=== PATIENT | male | born 1950 | race Caucasian/White ===

== ENCOUNTER → 2018-10-12 | Outpatient (CLI) | payer MEDICARE ==
[2018-10-12 14:09] LABS: Blood Urea Nitrogen 15 mg/dL (9-20)
--- NOTE | 2018-10-12 14:46 | CT ---
EXAMINATION TYPE: CT soft tissue neck w con DATE OF EXAM: 10/12/2018 COMPARISON: None HISTORY: Tongue swelling and mass CT DLP: 426 mGycm CONTRAST: CT scan of the neck is performed with IV Contrast, patient injected with 100 mL of Isovue 300. Contrast enhanced CT of the neck was performed from the skull base through the lung apices. AIRWAY: There is a large mass at the base of the tongue on the left measuring 5.2 x 4.2 x 4.9 cm. The re is distortion of the airway with narrowing on the left and displacement towards the right. Mass ex tends adjacent to to the anterior aspect left internal carotid artery as well as adjacent several lef t external carotid arterial branches. Several adjacent small lymph nodes are noted measuring less li n 6 mm each. These findings felt to reflect malignancy until proven otherwise. No additional mass is identified. SALIVARY GLANDS: The submandibular and parotid glands are free of mass or inflammatory process. THYROID GLAND: No nodules or masses seen. LYMPH NODES: No adenopathy seen greater than 1cm. LUNG APICES: No nodule or mass is seen. OTHER: Vascular structures are patent. No significant degenerative change of the cervical spine. N o abscess seen. IMPRESSION: 1. Large mass at the base of tongue on the left as discussed above with distortion of the airway from left to right. Several small adjacent lymph nodes noted. Visualization and tissue diagnosis is advised.
== END ==
LOC: RADCTMAIN 13:35
PROVIDERS: ATTEND Otolaryngology
DX: D37.02 Neoplasm of uncertain behavior of tongue (principal)
CPT/HCPCS: 82565; 84520; 70491; Q9967

== ENCOUNTER → 2018-10-13 | Outpatient (CLI) | payer MEDICARE ==
--- NOTE | 2018-10-13 10:12 | US ---
EXAMINATION TYPE: US duplex aorta DATE OF EXAM: 10/13/2018 COMPARISON: NONE CLINICAL HISTORY: R10.84 Generalized abdominal pain. 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
== END | disposition home or self-care (01) ==
LOC: RADUSWWP 09:30
PROVIDERS: ATTEND Internal Medicine
DX: R10.84 Generalized abdominal pain (principal); Z88.0 Allergy status to penicillin; Z88.5 Allergy status to narcotic agent; Z88.1 Allergy status to other antibiotic agents
CPT/HCPCS: 93979

== ENCOUNTER → 2018-10-24 | Outpatient (CLI) | payer MEDICARE ==
--- NOTE | 2018-10-24 19:27 | PE ---
EXAMINATION TYPE: PET CT fusion skull to thigh DATE OF EXAM: 10/24/2018 COMPARISON: Neck CT October 12, 2018. Chest CT January 30, 2016. HISTORY: Head and neck cancer initial staging study. TECHNIQUE: Following the intravenous administration of 14.026 mCi of F-18 FDG, whole body images are performed from the skull base to the midthigh. Images are reviewed on the computer in the coronal, axial, and sagittal planes. Reconstructed rotating images are created on independent workstation and reviewed on the computer. A noncontrast CT is performed in conjunction with the PET scan. Dedicate d PET/CT imaging of the neck is also performed. SCAN: Initial Scan FINDINGS: SKULL BASE AND NECK: There is a large left oropharyngeal mass measuring approximately 3.5 x 3.3 cm a xial image 45 involving left tongue base, craniocaudal dimension is roughly 5 to 6 cm filling the lef t parapharyngeal fat space superiorly, there is local mass effect with airway deviation to right of m idline, there is indistinct margins or fat plane from adjacent submandibular gland, inferior extent i s to submandibular level just at beginning of hyoid bone, max SUV is 19.1. There is suspicious subcentimeter right submandibular lymph node anterior to right internal jugular v ein axial image 52, max SUV is 4.88. There is suspicious subcentimeter left anterior lymph node near level of hyoid bone axial images 59 t hrough 61, max SUV is 5.09 at this level. There is 1.3 cm hypermetabolic left nasal lesion axial image 28, max SUV is 9.58. There is mild hypermetabolic uptake right lateral mandibular level images 44 through 42 with max SUV of 6.02, this is near cavitary filling, dental cavity or infection is suspected. Correlate clinically . CHEST, MEDIASTINUM, AND HILAR REGION: There is background fairly moderate underlying emphysematous ch [place]. In the posterior inferior aspect left upper lobe there is some mild hypermetabolic uptake at le cee of reticulation and groundglass opacity, max SUV is 3.21, infectious process is suspected. Additi onal areas of groundglass opacity and reticulation superior aspect left lower lobe axial image 131 ar e noted with minimal hypermetabolic uptake, max SUV is less than 2.5 at this level. Additional areas of involvement in the left lower lobe axial image 151 are present. No convincing evidence of suspicio us hypermetabolic uptake to suggest metastatic disease pneumothorax is noted. ABDOMEN AND PELVIS: No suspicious hypermetabolic uptake is present. OSSEOUS STRUCTURES: No suspicious hypermetabolic uptake is seen. OTHER CT: There is moderate to severe calcified plaque at bilateral carotid bulb level, cannot exclud e significant stenosis. Consider carotid ultrasound follow-up. Pectus excavatum deformity is seen. There is moderate to severe 3 vessel coronary artery calcificatio n which is noted risk factor for underlying coronary artery disease, correlate clinically. Ascending aorta measures up to 3.8 cm diameter axial image 122. Incidental a metabolic 1.3 cm skin lesion left lower anterior chest wall axial image 148 favors dermatologic etiology. Colonic interposition is noted. Mild generalized fat replaced atrophy of pancreas is seen. There is m oderate atherotic change of aorta measuring up to 2.8 cm in diameter transversely axial image 202. IMPRESSION: Large left oropharyngeal mass or neoplasm with suspicious bilateral subcentimeter lymph n odes. No convincing evidence of metastatic malignancy. Suspect multifocal left-sided pneumonia or inf ectious process, correlate clinically. Note is made of suspicious left nasal bridge hypermetabolic so ft tissue lesion, advise direct visualization to assess. Possible right mandibular dental cavity, cor relate clinically.
== END | disposition home or self-care (01) ==
LOC: RADPETMAIN 15:59
PROVIDERS: ATTEND Otolaryngology
DX: C01 Malignant neoplasm of base of tongue (principal)
CPT/HCPCS: 78815; A9552

== ENCOUNTER 2019-01-17 05:04 | Emergency (ER) | payer MEDICARE ==
[2019-01-17 05:22] VITALS: RESP 16; TEMP 96.8
--- NOTE | 2019-01-17 05:32 | ED ---
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 Patient reports that because of this he has been on a liquid diet for a number of weeks. Patient states that over the past 2 weeks he hasn't been able to have a normal bowel movement, initially he thought it was because he was on liquid diet, however over the past few days he's been feeling as though he needs to have a bowel movement and can't. He describes it as feeling as though there is a ball of stool stuck in only liquid stool coming around. Patient is taking Dulcolax daily for a number of days and has tried multiple fleets enemas without success. - Related Data Home Medications Medication Instructions Recorded Confirmed Fluconazole [Diflucan] 100 mg PO DAILY 01/17/19 01/17/19 Levothyroxine Sodium [Synthroid] 75 mcg PO DAILY 01/17/19 01/17/19 Previous Rx's Medication Instructions Recorded Polyethylene Glycol 3350 [Miralax] 17 gm PO DAILY #527 gm 01/17/19 Allergies Allergy/AdvReac Type Severity Reaction Status Date / Time codeine Allergy Unknown Verified 01/17/19 05:21 Penicillins Allergy Unknown Verified 01/17/19 05:21 Review of Systems ROS Statement: Those systems with pertinent positive or pertinent negative responses have been documented in the HPI. ROS Other: All systems not noted in ROS Statement are negative. Past Medical History Past Medical History: Hypertension Additional Past Medical History / Comment(s): Throat cancer History of Any Multi-Drug Resistant Organisms: None Reported Past Surgical History: Orthopedic Surgery Past Psychological History: No Psychological Hx Reported Smoking Status: Current every day smoker Past Alcohol Use History: None Reported Past Drug Use History: None Reported General Exam - General Exam Comments Initial Comments: Physical Exam GENERAL: Chronically ill appearing gentleman, appears older than stated age HENT: Temporal wasting EYES: PERRL, EOMI PULMONARY: Unlabored respirations. CARDIOVASCULAR: Bradycardic, regular ABDOMEN: Soft and nontender with normal bowel sounds. SKIN: Skin is clear with no lesions or rashes and otherwise unremarkable. Dry : Deferred NEUROLOGIC: Patient is alert and oriented x3. Moving all extremities spontaneously Speech slurred due to tongue swelling secondary to radiation MUSCULOSKELETAL: Normal extremities with adequate strength and full range of motion. No lower extremity swelling or edema. No calf tenderness. PSYCHIATRIC: Normal psychiatric evaluation Course Vital Signs 01/17/19 05:12 Temperature 96.8 F L Pulse Rate 86 Respiratory 16 Rate Blood Pressure 108/79 O2 Sat by Pulse 97 Oximetry - Reevaluation(s) Reevaluation #1: 01/17/19 06:35 patient was digitally disimpacted and soap suds enema was administered Disposition Clinical Impression: Fecal impaction in rectum Disposition: HOME SELF-CARE Condition: Stable Instructions (If sedation given, give patient instructions): Polyethylene Glycol 3350 (By mouth) Prescriptions: Polyethylene Glycol 3350 [Miralax] 17 gm PO DAILY #527 gm Is patient prescribed a controlled substance at d/c from ED?: No Referrals: Peter Armando MD [Primary Care Provider] - 1-2 days
--- NOTE | 2019-01-17 06:14 | XR ---
EXAM: XR Abdomen, 1 View CLINICAL HISTORY: ITS.REASON XR Reason: Pain TECHNIQUE: Frontal supine view of the abdomen/pelvis. COMPARISON: No relevant prior studies available. FINDINGS: Gastrointestinal tract: Unremarkable. No dilation. Bones/joints: No acute fracture. No dislocation. IMPRESSION: No acute findings.
[2019-01-17 07:17] VITALS: BP 146/82; PULSE 84
== END 2019-01-17 07:16 | disposition home or self-care (01) ==
LOC: EC 05:04
DX: K56.41 Fecal impaction (principal); C14.0 Malignant neoplasm of pharynx, unspecified; F17.200 Nicotine dependence, unspecified, uncomplicated; Z79.890 Hormone replacement therapy; Z88.0 Allergy status to penicillin; Z88.5 Allergy status to narcotic agent
CPT/HCPCS: 74018; 99284

== ENCOUNTER → 2019-04-24 | Outpatient (CLI) | payer MEDICARE ==
--- NOTE | 2019-04-25 19:03 | PE ---
Nuclear medicine PET/CT HISTORY: Head and neck cancer, subsequent Patient received 9.4 mCi F-18 FDG intravenously in delayed scanning was performed from the skull base to the mid thighs. Small veuns-ci-pofp imaging obtained through the head and neck. Correlation to prior nuclear medicine PET/CT 10/24/2018 Head and neck: There is marked diminution in the previous identified hypermetabolic uptake associated with the abnormal soft tissue seen on previous exam within the oropharynx. The abnormal soft tissue is poorly defined at this level but appears decreased in size compared to prior exam. Some mild uptak e along the tongue region may be physiologic or due to posttreatment change. Nasal uptake to the left of midline is again noted. No definite adenopathy although lack of contrast could compromise sensiti vity. Atheromatous calcifications present within the carotid arteries. Chest shows emphysematous changes and there is some increased abnormal increased attenuation present at the left lung base which is more confluent and dense than on previous exam but without hypermetabo lic uptake, some minimal bilateral dependent atelectatic changes are present, there are coronary loretta ry calcifications. Ascending aorta is borderline aneurysmal. No pleural or pericardial effusion. No m ediastinal, axillary, or hilar adenopathy. No supraclavicular adenopathy evident. Abdomen pelvis: No evident liver mass or retroperitoneal adenopathy. Adrenal glands are unremarkable. Atheromatous changes are present within the aorta. No ascites. No suspicious hypermetabolic uptake. Prostate calcifications are present. Osseous structures are stable, no suspicious hypermetabolic uptake. IMPRESSION: Positive treatment response as described.
== END | disposition home or self-care (01) ==
LOC: RADPETMAIN 08:40
PROVIDERS: ATTEND Internal Medicine Hematology & Oncology
DX: I67.2 Cerebral atherosclerosis (principal); I65.29 Occlusion and stenosis of unspecified carotid artery; J43.9 Emphysema, unspecified; I71.2 Thoracic aortic aneurysm, without rupture; C10.0 Malignant neoplasm of vallecula
CPT/HCPCS: 78815; A9552

== ENCOUNTER → 2019-07-14 | Outpatient (CLI) | payer MEDICARE ==
[2019-07-14 09:18] LABS: African American GFR (CKD) >90 (>60 ml/min/1.73 sqM); Blood Urea Nitrogen 15 mg/dL (9-20); Non-African American GFR(CKD) 89 (>60 ml/min/1.73 sqM)
--- NOTE | 2019-07-14 10:28 | CT ---
EXAMINATION TYPE: CT neck chest w con DATE OF EXAM: 07/14/2019 COMPARISON: 10/12/[address] fusion 04/24/2019 HISTORY: oropharynx CA CT DLP: 641.9 mGycm CONTRAST: CT scan of the neck is performed with IV Contrast, patient injected with 100 mL of Isovue 300. Contrast enhanced CT of the neck was performed from the skull base through the lung apices. AIRWAY: Large mass previously noted at the base of the tongue is significantly smaller in size with r esidual soft tissue prominence measuring 2.0 x 1.4 cm versus 5.2 x 4.2 x 4.9 cm previously. Previousl y noted displaced airway from left to right is now centralized. SALIVARY GLANDS: The submandibular and parotid glands are free of mass or inflammatory process. THYROID GLAND: No nodules or masses seen. LYMPH NODES: No adenopathy seen greater than 1cm. LUNG APICES: No nodule or mass is seen. OTHER: Vascular structures are patent. No significant degenerative change of the cervical spine. N o abscess seen. IMPRESSION: Significant diminution in size in left oropharyngeal mass. EXAMINATION TYPE: CT neck chest w con DATE OF EXAM: 07/14/2019 COMPARISON: PET/CT dated 04/24/2019 HISTORY: oropharynx CA CT DLP: 641.9 mGycm Automated exposure control for dose reduction was used. CONTRAST: CT scan of the chest is performed with IV Contrast, patient injected with 100 mL of Isovue 300. FINDINGS: LUNGS: Moderate emphysematous changes identified. New areas of reticulonodular infiltrate left upper lobe, left lower lobe and right lower lobe may reflect areas of developing inflammatory process. [place] static disease considered less likely. Appropriate follow-up advised. MEDIASTINUM: There are no greater than 1 cm hilar or mediastinal lymph nodes. No pericardial effusi on is seen. Thoracic aorta is of normal caliber. The heart is not enlarged. UPPER ABDOMEN: No significant abnormality appreciated. OTHER: No additional significant abnormality is seen. IMPRESSION: New areas of reticulonodular infiltrate left upper lobe, left lower lobe and right lower lobe may ref lect areas of developing inflammatory process. Metastatic disease considered less likely. Appropriate follow-up advised.
== END | disposition home or self-care (01) ==
LOC: RADCTMAIN 08:39
PROVIDERS: ATTEND Internal Medicine Hematology & Oncology
DX: C10.0 Malignant neoplasm of vallecula (principal); R91.8 Other nonspecific abnormal finding of lung field; Z88.0 Allergy status to penicillin; Z88.5 Allergy status to narcotic agent
CPT/HCPCS: 82565; 84520; 70491; 71260; 36415; Q9967

== ENCOUNTER → 2019-10-21 | Outpatient (CLI) | payer MEDICARE ==
[2019-10-21 14:57] LABS: African American GFR (CKD) >90 (>60 ml/min/1.73 sqM); Blood Urea Nitrogen 30 mg/dL (9-20); Non-African American GFR(CKD) >90 (>60 ml/min/1.73 sqM)
--- NOTE | 2019-10-22 09:38 | CT ---
EXAMINATION TYPE: CT neck chest w con DATE OF EXAM: 10/21/2019 3:31 PM COMPARISON: 07/14/2019 CT neck and chest and PET/CT dated 04/24/2019 HISTORY: Follow up for malignant neoplasm oropharynx. CT DLP: 656.7 mGycm Automated exposure control for dose reduction was used. CONTRAST: CT scan of the chest and neck is performed following with IV Contrast, patient injected with 100ml mL of Isovue 300. Axial images are obtained, coronal and sagittal reformatted images are reviewed. FINDINGS: Airway: There is some soft tissue prominence at the left lateral posterior tongue base with the only abnormal area of enhancement measuring approximate 7 mm as opposed to the prior measurements of 2.0 x 1.4 cm. There is also bulbous contour of the posterior oropharynx at the level of the uvula on the l eft that could be posttreatment change. This could be further evaluated with direct visualization. Tr ue and false focal cords appear unremarkable. Piriform sinuses are maintained. Subglottic airway is u nremarkable. Parotid/submandibular glands: Symmetric atrophy. No mass seen or surrounding inflammatory process. Carotid/Vascular Structures: There is a conventional three-vessel branch pattern of the aortic arch. Common carotid arteries are patent. Carotid bulbs bilaterally demonstrated approximately 50% stenosis . Less than 50% stenosis is seen in the proximal internal carotid arteries just after their origin. O n the left approximately 50% stenosis of the internal carotid artery is seen focally over a distance of 6 mm such as on axial series 4 image 55. The remaining cervical portions of the internal carotid a rteries are patent and unremarkable. The vertebral arteries are also patent. Osseous Structures: Mild multilevel degenerative changes of the spine. Lungs: Moderate background emphysematous changes of the lungs. Worsening reticular opacities at the r ight lung base that could be on the basis of fibrosis, infectious etiology, or inflammatory etiology. Neoplastic etiology is considered less likely however there is a more nodular density in the right l ower lobe on series 6 image 66 measuring 5 mm. This appears new from the prior. Few tree-in-bud opaci ties are seen in the left lower lobe such as on image 52. Lingular opacities are also new and progres elena in the left lower lobe of tree-in-bud opacities. Mediastinum: Moderate to severe coronary artery calcifications. No suspicious mediastinal adenopathy. 8 mm short axis lymph node in the precarinal space and 18 mm short axis lymph node in the subcarinal space. Heart is nonenlarged. No pericardial effusion. Upper abdomen: 9 mm fluid attenuated right renal cyst is seen. IMPRESSION: 1. Progressing and new reticular nodular and tree-in-bud opacities multifocally within the lingula a nd lower lobes most likely representing infectious or inflammatory etiology. Given the tree-in-bud ap pearance atypical infection such as tuberculosis or mycobacterium avium intracellular could be consid ered. However there is a new spiculated right basilar density therefore metastasis again remains a co nsideration. PET/CT could be considered for further evaluation. 2. Enhancement and soft tissue fullness at the left tongue base representing the known and treated or opharyngeal carcinoma is much less conspicuous than on the prior exams an abnormal area of enhancemen t measures now only 7 mm. Fullness is also seen in the posterior oropharynx on the left at the level of the uvula. Direct visualization recommended.
== END | disposition home or self-care (01) ==
LOC: RADCTMAIN 13:46
PROVIDERS: ATTEND Internal Medicine Hematology & Oncology
DX: C10.9 Malignant neoplasm of oropharynx, unspecified (principal); R91.8 Other nonspecific abnormal finding of lung field; Z88.0 Allergy status to penicillin; Z88.5 Allergy status to narcotic agent
CPT/HCPCS: 82565; 84520; 70491; 71260; 36415; Q9967

== ENCOUNTER → 2020-02-14 | Outpatient (CLI) | payer MEDICARE ==
[2020-02-14 15:29] LABS: African American GFR (CKD) >90 (>60 ml/min/1.73 sqM); Blood Urea Nitrogen 14 mg/dL (9-20); Non-African American GFR(CKD) >90 (>60 ml/min/1.73 sqM)
--- NOTE | 2020-02-14 16:54 | CT ---
EXAMINATION TYPE: CT neck chest w con DATE OF EXAM: 02/14/2020 3:52 PM COMPARISON: CT exam 10/21/2019 HISTORY: f/u throat ca CT DLP: 605.9 mGycm Automated exposure control for dose reduction was used. CONTRAST: CT scan of the neck is performed following with IV Contrast, patient injected with 100 mL of Isovue 3 00. Axial images are obtained, coronal and sagittal reformatted images are reviewed. FINDINGS: There is lack of fat along the neck, increased attenuation which is likely related to postt reatment change Airway: No gross abnormality seen. The posterior tongue shows no abnormal enhancement, there is a sim ilar appearance to prior exam. Extensive emphysematous changes are present within the lungs. The appe arance of the posterior lung bases shows a similar tree-in-bud pattern however there is been interval development of a irregular area soft tissue measuring approximately 5.6 x 5.5 x 3.3 cm which extends to the pleural surface the posterior costophrenic angle. Parotid/submandibular glands: No gross abnormality seen. Carotid/Vascular Structures: No change Osseous Structures: Multilevel facet arthropathy, degenerative disc change again noted. Other: Coronary artery calcifications are again seen.0 IMPRESSION: Abnormal density in the right lung base could be related to pneumonia, inflammatory [place], correlate, follow-up recommended to exclude mass. No evident recurrence in the head and neck.
== END | disposition home or self-care (01) ==
LOC: RADCTMAIN 14:25
PROVIDERS: ATTEND Internal Medicine Hematology & Oncology
DX: J98.4 Other disorders of lung (principal); C10.0 Malignant neoplasm of vallecula; Z88.0 Allergy status to penicillin; Z88.5 Allergy status to narcotic agent
CPT/HCPCS: 82565; 84520; 70491; 71260; 36415; Q9967

== ENCOUNTER → 2020-03-18 | Outpatient (CLI) | payer MEDICARE ==
--- NOTE | 2020-03-21 06:24 | PE ---
EXAMINATION TYPE: PET CT fusion skull to thigh DATE OF EXAM: 03/18/2020 COMPARISON: Prior PET CTs April 24, 2019 and October 24, 2018. Most recent CT neck and chest February [id number] and older studies. HISTORY: History of throat cancer diagnosed October 2018 treated with chemotherapy and radiation treatm ent ended February 2019. TECHNIQUE: Following the intravenous administration of 9.31 mCi of F-18 FDG, whole body images are p erformed from the skull base to the midthigh. Images are reviewed on the computer in the coronal, ax ial, and sagittal planes. Reconstructed rotating images are created on independent workstation and r eviewed on the computer. A noncontrast CT is performed in conjunction with the PET scan. Dedicated PET CT of the head and neck also performed. SCAN: Subsequent Scan FINDINGS: SKULL BASE AND NECK: Continued marked improvement in the abnormal enlarged enhancing tissue left tongue base versus prior CTs and PET CTs but there is some new hypermetabolic uptake felt present axi al images 45 through 48 at level of prior neoplasm likely reflecting some active neoplastic recurrenc e, max SUV is 6.4 at this level superiorly. No definitive new suspicious hypermetabolic right submandibular neck adenopathy on current study. Per sistent hypermetabolic 1.2 cm anterior left nasal focus axial image 24 with Max SUV 5.09 current stud y. There is now new soft tissue swelling and moderate subcutaneous edema below the mandible extending to the hyoid bone where there is new hypermetabolic uptake believed to be corresponding to muscle infla mmation and/or infection, former is favored. Correlate clinically. Some additional symmetric lower ce rvical muscular uptake is noted. CHEST, MEDIASTINUM, AND HILAR REGION: Back moderate underlying emphysematous change is redemonstrated . No new areas of suspicious hypermetabolic uptake. Right basilar atelectasis and/or consolidation no jt is ametabolic. ABDOMEN AND PELVIS: No new areas of suspicious hypermetabolic uptake. OSSEOUS STRUCTURES: No new areas of suspicious hypermetabolic uptake. OTHER CT: Inferiorly severe calcified plaque at bilateral carotid bulb level, cannot exclude signific ant stenosis is redemonstrated. Pectus excavatum deformity is redemonstrated. There is moderate to severe 3 vessel coronary artery ca lcification which is noted risk factor for underlying coronary artery disease redemonstrated. Ascendi ng aorta measures up to 3.8 cm diameter axial image 124. Incidental ametabolic 1.3 cm skin lesion lef t lower anterior chest wall axial image 146 favored benign is more hyperdense from prior studies. Patient has very little internal and external fat. There is moderate atherosclerotic change of aorta with some ectasia measuring up to 2.8 cm in diameter. No definitive greater than 3.0 cm aneurysm. Mil [id number]-az-[id number] diffuse soft tissue anasarca is now present. 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 Stable anterior left na soraya suspicious uptake. No new active or recurrent metastatic disease identified.
== END | disposition home or self-care (01) ==
LOC: RADPETMAIN 09:55
PROVIDERS: ATTEND Internal Medicine Hematology & Oncology
DX: C10.0 Malignant neoplasm of vallecula (principal)
CPT/HCPCS: 78815; A9552

== ENCOUNTER → 2020-05-10 | Outpatient (CLI) | payer MEDICARE ==
[2020-05-10 16:32] LABS: African American GFR (CKD) >90 (>60 ml/min/1.73 sqM); Blood Urea Nitrogen 17 mg/dL (9-20); Non-African American GFR(CKD) >90 (>60 ml/min/1.73 sqM)
--- NOTE | 2020-05-11 07:07 | CT ---
EXAMINATION TYPE: CT neck chest w con DATE OF EXAM: 05/10/2020 COMPARISON: CT neck and chest February 14, 2020 and older CTs. Most recent PET CT March 18, 2020 and old er studies. HISTORY: Malignant neoplasm of vallecula. Pt not reporting any current issues CT DLP: 694.80 mGycm. Automated Exposure Control for Dose Reduction was Utilized. TECHNIQUE: CT scan of the neck and thorax are performed following with IV Contrast, patient injected with 100 mL of Isovue 300. FINDINGS: Neck: Persistent asymmetry to the tongue base with asymmetric right-sided fullness, bilateral slight hyperd ensity left posterior tongue base measuring 2.4 x 1.8 cm axial image 69 response to the area of some increased hypermetabolic uptake on most recent PET/CT. There are visualized just over 1 cm left anterior nasal hypermetabolic focus not clearly seen on curr ent study. No definitive new greater than 1 cm neck adenopathy. Moderate calcified plaque bilateral carotid bulb level extends into proximal internal carotid arterie s without significant stenosis. Mild calcified plaque distal vertebral arteries which are patent to b asilar junction. Mild calcified plaque supraclinoid segment distal internal carotid arteries bilatera lly. Exaggerated cervical curvature. Grade 1 anterolisthesis C4 on C5. Underlying scoliotic curvature in t he cervical spine. Multilevel spurring and disc space narrowing C5-C6 and C6-C7 levels redemonstrated . Multilevel uncovertebral facet degenerative changes redemonstrated. Generalized submandibular gland atrophy bilaterally redemonstrated. Some less prominent but generaliz ed parotid gland atrophy again seen. Marked interval improvement in abnormal soft tissue swelling and subcutaneous edema anterior submandi bular region. Chest: LUNGS: Background moderate to advanced underlying emphysematous change greater in the upper lungs is redemonstrated. Mild to moderate scattered areas of parenchymal fibrosis are redemonstrated. Reticulo nodular posterior right lower lobe opacities remain present for reference image 54 slightly improved from most recent CT. Interval resolution in the posterior left lower lobe noted. There is also improv ed posterior right basilar infiltrate and/or atelectasis most recent CT. No new nodules or masses. No pleural effusion or pneumothorax. MEDIASTINUM: There are no greater than 1 cm hilar or mediastinal lymph nodes. No cardiomegaly or p ericardial effusion is seen. Coronary artery calcification redemonstrated. OTHER: Patient has little intra-abdominal fat similar to prior. [id number] multilevel spurring of the spine redemonstrated. IMPRESSION: 1. Stable subtle hyperdense area left posterior tongue base from most recent PET/CT in which recurren t active neoplasm cannot be excluded. Correlate clinically with direct visualization. No new suspicio us masses or adenopathy. 2. Suspect interval resection of the anterior left nasal hypermetabolic lesion. Correlate clinically. 3. Emphysematous change with resolving infectious process in the lower lungs. No new suspicious nodul es identified.
== END | disposition home or self-care (01) ==
LOC: RADCTMAIN 15:42
PROVIDERS: ATTEND Internal Medicine Hematology & Oncology
DX: C10.0 Malignant neoplasm of vallecula (principal); J43.9 Emphysema, unspecified; Z88.2 Allergy status to sulfonamides; Z88.5 Allergy status to narcotic agent
CPT/HCPCS: 82565; 84520; 70491; 71260; 36415; Q9967

== ENCOUNTER 2021-04-06 10:51 | Inpatient (IN) | payer MEDICARE ==
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
[2021-04-06 12:08] LABS: Appearance,Urine Clear (Clear); Bilirubin,Urine Negative (Negative); Blood,Urine Negative (Negative); Color,Urine Yellow; Glucose,Urine (UA) Negative (Negative); Ketones,Urine Negative (Negative); Leukocyte Esterase,Urine Negative (Negative); Nitrite,Urine Negative (Negative); Protein,Urine Trace (Negative); Specific Gravity,Urine 1.015 (1.001-1.035); Urobilinogen,Urine <2.0 mg/dL (<2.0)
[2021-04-06 12:09] LABS: INR 1.3 (<1.2); Partial Thromboplastin Time 25.1 sec (22.0-30.0); Prothrombin Time 13.3 sec (9.0-12.0)
[2021-04-06 12:15] LABS: Basophils # (A) 0.2 k/uL (0-0.2); Basophils % (A) 1 %; Eosinophils # (A) 0.1 k/uL (0-0.7); Eosinophils % (A) 0 %; HCT 51.5 % (39.0-53.0); HGB 17.5 gm/dL (13.0-17.5); Hypochromasia Slight; Lymphocytes # (A) 0.1 k/uL (1.0-4.8); Lymphocytes % (A) 0 %; MCH 32.2 pg (25.0-35.0); MCHC 33.9 g/dL (31.0-37.0); Monocytes # (A) 0.3 k/uL (0-1.0); Monocytes % (A) 2 %; Neutrophils # (A) 13.6 k/uL (1.3-7.7); Neutrophils % (A) 96 %; Platelet Count 300 k/uL (150-450); Poikilocytosis Slight; RBC 5.42 m/uL (4.30-5.90); RDW 14.9 % (11.5-15.5); WBC 14.2 k/uL (3.8-10.6)
[2021-04-06 12:20] LABS: Albumin 3.2 g/dL (3.5-5.0); Calcium 9.9 mg/dL (8.4-10.2); Total Bilirubin 0.7 mg/dL (0.2-1.3); Total Protein 6.3 g/dL (6.3-8.2)
--- NOTE | 2021-04-06 12:22 | XR ---
EXAMINATION TYPE: XR chest 2V DATE OF EXAM: 04/06/2021 COMPARISON: PET/CT 03/18/2020 INDICATION: Short of breath TECHNIQUE: Frontal and lateral views of the chest are obtained. FINDINGS: The heart size is normal. The pulmonary vasculature is normal. Perihilar infiltrates are present. Diffuse increased lung markings are present on the left. Correlate for atypical pneumonia. Other etiologies including noncardiogenic pulmonary edema and neoplasm shoul d be considered. Follow-up to clearing is recommended. IMPRESSION: 1. Diffuse increased lung markings greater on the left than the right. Correlate for atypical pneumon ia. Follow-up is recommended
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
[2021-04-06 12:59] LABS: Poikilocytosis (M) Present; Toxic Granulation Present
[2021-04-06] MEDS ORDERED: cefTRIAXone IN SWFI 1,000 MG/10 ML SYRINGE IVP STA ×2 (13:04→13:05)
[2021-04-06] MEDS ORDERED: SODIUM CHLORIDE 0.9% 500 ML 500 ML IV ONE (14:01)
[2021-04-06] MEDS ORDERED: AZITHROMYCIN 500 MG in SODIUM CHLORIDE 0.9% 250 ML IVPB STA (14:04)
[2021-04-06] MEDS ORDERED: PNEUMONIA PROTOCOL UTILIZED 1 EACH MISC PO PRN (14:04)
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
--- NOTE | 2021-04-06 22:15 | P.CONS ---
History of Present Illness - Reason for Consult Consult date: 04/06/21 atypical pneumonia Requesting physician: Milo Castrejon - Chief Complaint weakess and shortness of breath x days - History of Present Illness History of present illness : Patient is a 70-year-old male was brought into the ER this morning for evaluation of extreme weakness that has been getting worse for the last few days patient complaining of shortness of breath and he did have a cough but not bringing up any sputum no nausea no vomiting no abdominal pain or any diarrhea on presentation to the hospital patient was afebrile patient was hypoxic with O2 sats of 82% requiring supplemental oxygen he did have elevated lactic acid vitals 14.2 with a left shift BUN was elevated creatinine was normal liver enzymes are normal urine was negative hood PCR was negative patient did have a chest x-ray diffuse increased lung markings greater on the left than on the right concerned for atypical pneumonia the patient was started on Rocephin and Zithromax infectious disease was consulted for further management of antibiotic therapy nursing staff did mention patient choking on the food when they tried to feed him in the same consult was expressed by the family member at the bedside, patient himself was not a good historian Review of system: CONSTITUTIONAL: Positive for weakness however no history of high-grade fever. EYES: No complaint. ENT: No complaint. RESPIRATORY: As per history of present illness CARDIOVASCULAR: No complaint. GENITOURINARY: No complaint. GASTROINTESTINAL: Decreased oral intake and choking MUSCULOSKELETAL: No complaint. INTEGUMENTARY: No complaint. PSYCHOLOGIC: No complaint. ENDOCRINE: No complaint. NEUROLOGIC: No complaint. Past medical history : Reviewed, documented below Past surgical history : Reviewed, documented below Social history: Reviewed, documented below Medications: Reviewed, as documented below GENERAL DESCRIPTION: Elderly male lying in bed, no distress. No tachypnea or accessory muscle of respiration use. HEENT: Shows Pallor , no scleral icterus. Oral mucous membrane is dry. NECK: Trachea central, no thyromegaly. LUNGS: Unlabored breathing. Coarse breath sounds bilaterally. No wheeze or crackle. HEART: S1, S2, regular rate and rhythm. ABDOMEN: Soft, no tenderness , guarding or rigidity EXTREMITIES: No edema of feet. SKIN: No rash, no masses palpable. NEUROLOGICAL: The patient is awake, alert, oriented x2, mood and affect normal. LABS AND RADIOLOGY: Reviewed results see below Assessment : 1-Patient presented to hospital with increased weakness congested cough and choking on the food in this patient who did have increasing infiltrate on the left than on the right side concern for possible aspiration pneumonia 2-patient with a penicillin allergy that would limit the number of antibiotics safe to use Plan: 1-Rocephin 1 g daily to continue however at clindamycin 2-obtain sputum for Gram stain and culture 3-check a CRP procalcitonin level 4-aspiration precaution We will follow on clinical condition and cultures to further adjust medication if needed Thank you for this consultation we will follow the patient along with you Past Medical History Past Medical History: Hypertension Additional Past Medical History / Comment(s): Throat cancer History of Any Multi-Drug Resistant Organisms: None Reported Past Surgical History: Orthopedic Surgery Past Psychological History: No Psychological Hx Reported Past Alcohol Use History: None Reported Past Drug Use History: None Reported Medications and Allergies Home Medications Medication Instructions Recorded Confirmed Type Ibuprofen [Motrin] 800 mg PO Q8H PRN 04/06/21 04/06/21 History Levothyroxine Sodium [Synthroid] 100 mcg PO DAILY 04/06/21 04/06/21 History Losartan-Hctz 50-12.5 mg [Hyzaar 1 tab PO DAILY 04/06/21 04/06/21 History 50-12.5] Simvastatin [Zocor] 20 mg PO DAILY 04/06/21 04/06/21 History Allergies Allergy/AdvReac Type Severity Reaction Status Date / Time codeine Allergy Unknown Verified 04/06/21 12:43 Penicillins Allergy Unknown Verified 04/06/21 12:43 Physical Exam Vitals: Vital Signs Temp Pulse Resp BP Pulse Ox 04/06/21 14:00 109 H 18 130/84 04/06/21 12:32 102 H 20 132/87 94 L 04/06/21 10:55 98.7 F 98 18 129/89 82 L Intake and Output 04/06/21 04/06/21 04/06/21 06:59 14:59 22:59 Other: Weight 53.977 kg Results CBC & Chem 7: 04/06/21 11:43 04/06/21 11:43 Labs: Abnormal Lab Results - Last 24 Hours (Table) 04/06/21 04/06/21 04/06/21 Range/Units 11:43 11:43 11:43 WBC 14.2 H (3.8-10.6) k/uL Neutrophils # 13.6 H (1.3-7.7) k/uL Lymphocytes # 0.1 L (1.0-4.8) k/uL PT 13.3 H (9.0-12.0) sec INR 1.3 H (<1.2) Sodium (137-145) mmol/L Chloride (98-107) mmol/L BUN (9-20) mg/dL Glucose (74-99) mg/dL Plasma Lactic Acid Rafael (0.7-2.0) mmol/L Albumin (3.5-5.0) g/dL Urine Protein Trace H (Negative) 04/06/21 04/06/21 Range/Units 11:43 11:43 WBC (3.8-10.6) k/uL Neutrophils # (1.3-7.7) k/uL Lymphocytes # (1.0-4.8) k/uL PT (9.0-12.0) sec INR (<1.2) Sodium 134 L (137-145) mmol/L Chloride 92 L (98-107) mmol/L BUN 65 H (9-20) mg/dL Glucose 149 H (74-99) mg/dL Plasma Lactic Acid Rafael 3.7 H* (0.7-2.0) mmol/L Albumin 3.2 L (3.5-5.0) g/dL Urine Protein (Negative)
[2021-04-06] MEDS: SODIUM CHLORIDE 0.9% 1,000 ML IV SCH ×2 (23:11→23:12)
[2021-04-06] MEDS: CLINDAMYCIN 600 MG in DEXTROSE 5% IN WATER 50 ML IVPB SCH ×2 (23:11)
[2021-04-07] MEDS: LEVOTHYROXINE 100 MCG TAB PO SCH (06:32)
[2021-04-07] MEDS: SODIUM CHLORIDE 0.9% 1,000 ML IV SCH ×2 (06:32→19:26)
--- NOTE | 2021-04-07 08:34 | ECHOF ---
Referral Reason:shortness of breath MEASUREMENTS -------- HEIGHT: 188.0 cm WEIGHT: 54.0 kg BP: 132/87 RVIDd: 2.8 cm (< 3.3) IVSd: 1.6 cm (0.6 - 1.1) LVIDd: 2.2 cm (3.9 - 5.3) LVPWd: 1.6 cm (0.6 - 1.1) IVSs: 2.0 cm LVIDs: 1.7 cm LVPWs: 2.3 cm LA Diam: 2.6 cm (2.7 - 3.8) Ao Diam: 2.9 cm (2.0 - 3.7) AV Cusp: 1.6 cm (1.5 - 2.6) MV EXCURSION: 12.495 mm (> 18.000) MV EF SLOPE: 77 mm/s (70 - 150) EPSS: 1.0 cm AV maxP.70 mmHg AV meanP.39 mmHg RAP: 5.00 mmHg RVSP: 31.78 mmHg FINDINGS -------- Resting tachycardia (HR>100bpm). This was a technically difficult study with suboptimal views. The left ventricular size is normal. There is moderate concentric left ventricular hypertrophy. D ifficult to assess LV function. Because of suboptimal views. Overall left ankle function appears to fair with the suggestion of hypokinesis of the anteroseptal area The right ventricle is normal in size and function. The left atrium is normal in size. The right atrium is normal in size. Interatrial and interventricular septum intact. Aortic valve is trileaflet and is mildly thickened. Peak/mean gradient across the Aortic Valve is 2 2.70mmHg / 11.39mmHg. The mitral valve leaflets are mildly thickened. Mild mitral annular calcification present. There is trace to mild mitral regurgitation. Mild tricuspid regurgitation present. Right ventricular systolic pressure is normal at < 35 mmHg. The pulmonic valve was not well visualized. The aortic root size is normal. Normal inferior vena cava with normal inspiratory collapse consistent with estimated right atrial pre ssure of 5 mmHg. There is no pericardial effusion. CONCLUSIONS -------- 1. The left ventricular size is normal. 2. There is moderate concentric left ventricular hypertrophy. 3. Difficult to assess LV function. Because of suboptimal views. Overall left ankle function appear s to fair with the suggestion of hypokinesis of the anteroseptal area 4. Aortic valve is trileaflet and is mildly thickened. 5. Peak/mean gradient across the Aortic Valve is 22.70mmHg / 11.39mmHg. 6. The mitral valve leaflets are mildly thickened. 7. Mild mitral annular calcification present. 8. There is trace to mild mitral regurgitation. 9. Mild tricuspid regurgitation present. 10. There is no pericardial effusion. CELERY PACKER: Alicja Aviles RDCS
--- NOTE | 2021-04-07 08:38 | XR ---
EXAMINATION TYPE: XR chest 2V DATE OF EXAM: 04/07/2021 COMPARISON: 04/06/2021 HISTORY: 70 years Male. STUDY INDICATION GIVEN: pneumonia . TECHNIQUE: Frontal and lateral radiographs of the chest FINDINGS AND IMPRESSION: Bilateral left greater than right airspace and nodular opacities are again seen findings suggesting m ultifocal pneumonia though follow-up to resolution recommended to rule out underlying/developing lung nodule mass. No pneumothorax or pleural effusion. Normal cardiomediastinal silhouette. Gas-filled distended bowel loops in the upper abdomen, could represent ileus. No acute osseous abnormality.
[2021-04-07] MEDS: ATORVASTATIN 10 MG TAB PO SCH (08:49)
[2021-04-07] MEDS: LOSARTAN-HCTZ 50-12.5 MG 1 EACH TAB PO SCH (08:49)
[2021-04-07] MEDS ORDERED: AZITHROMYCIN 500 MG TAB PO SCH (09:00)
[2021-04-07 09:34] LABS: HCT 40.7 % (39.0-53.0); MCH 31.9 pg (25.0-35.0); MCHC 34.4 g/dL (31.0-37.0); MCV 92.6 fL (80.0-100.0); Mean Platelet Volume 8.7; Platelet Count 234 k/uL (150-450); RBC 4.39 m/uL (4.30-5.90); RDW 13.7 % (11.5-15.5); WBC 17.8 k/uL (3.8-10.6)
[2021-04-07 09:43] LABS: Albumin 2.4 g/dL (3.5-5.0); Total Bilirubin 0.4 mg/dL (0.2-1.3)
[2021-04-07 10:39] LABS: C Reactive Protein 42.1 mg/dL (<1.0)
[2021-04-07 11:14] LABS: Band Neutrophils % 7 %; Lymphocytes # (M) 0.18 k/uL (1.0-4.8); Monocytes # (M) 0.18 k/uL (0-1.0); Neutrophils % (M) 91 %; Nucleated Red Blood Cells 0 /100 WBC (0-0); Total Cells Counted 100
[2021-04-07 11:15] LABS: Toxic Vacuolation Present
[2021-04-07] MEDS ORDERED: SODIUM CHLORIDE 0.9% 1,000 ML IV ONE (11:15)
[2021-04-07] MEDS ORDERED: Potassium Replacement Protocol 1 EACH MISC MISCELLANE PRN ×2 (11:17→11:24)
[2021-04-07] MEDS: CLINDAMYCIN 600 MG in DEXTROSE 5% IN WATER 50 ML IVPB SCH ×6 (11:17→22:56)
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
[2021-04-07] MEDS: ENOXAPARIN 40 MG/0.4 ML SYRINGE SQ SCH (12:37)
[2021-04-07] MEDS: POTASSIUM CHLORIDE 10 MEQ in WATER FOR INJECTION 1 100ML.BAG IVPB SCH ×4 (12:37→17:25)
--- NOTE | 2021-04-07 13:06 | P.GSCN ---
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 Most information obtained by medical records this patient is a poor historian. Patient presents to emergency room with generalized weakness yesterday. He had an additional workup in the emergency room included a chest x-ray for atypical pneumonia as a result he has been admitted. General surgery is consulted for PEG tube placement. Family is at bedside giving additional history as the patient is non-verbal. She reports his surgery was done at [facility]. His last follow-up with his o ncologist was earlier this year. Patient did not pass bedside swallow evaluation. Additionally, patient has poor venous access historically. Patient has not had a mediport or prior feeding tube. He has not been able to eat for weeks. PAST MEDICAL HISTORY: See list and reviewed PAST SURGICAL HISTORY: See list and reviewed MEDICATIONS: See list and reviewed ALLERGIES: See list and reviewed SOCIAL HISTORY: See list and reviewed FAMILY HISTORY: See list and reviewed REVIEW OF ORGAN SYSTEMS: Obtained per records as patient is poor historian CONSTITUTIONAL: No fevers or chills. Has weight loss. 10 kg in 2 years. EYES: Denies any trouble with vision. No glasses. HEENT: No difficulties with hearing. No nosebleeds. Has difficulty swallowing. RESPIRATORY: Current pneumonia. CARDIOVASCULAR: Denies any chest pain, palpitations GASTROINTESTINAL: Denies change in bowel habits and gas bloat. GENITOURINARY: Denies any blood in urine or increased urinary frequency. NEUROLOGICAL: Denies any numbness or tingling along the distal extremities. No seizure disorders or headaches. MUSCULOSKELETAL: Has back pain, stiffness or joint arthritis. SKIN: No current skin cancer. No rash. PSYCHIATRIC: Denies current depression or suicidal thoughts. ENDOCRINE: Has hypothyroidism. Denies any blood sugar glucose intolerance. HEME/LYMPHATIC: Denies any lumps and bumps around the neck. No recent deep venous thrombosis. ALLERGY/IMMUNOLOGY: No immunoglobulin therapy. No immune deficiencies. BREAST: Denies current breast lumps, pain or nipple discharge. PHYSICAL EXAM: VITALS: Reviewed CONSTITUTIONAL: Well developed and in no acute distress. Cachetic. EYES: Conjuctivae without sclera icterus. Extraocular movements grossly intact. HEAD, EARS, NOSE, THROAT: Moist buccal mucosa. Head is atraumatic, normocephalic. Hears conversational speech. No nasal drainage. NECK: Supple. No JV distention. No thyroidomegaly. RESPIRATORY: Non-labored respirations and equal bilateral excursions. No gross wheezes. CARDIOVASCULAR: 2+ radial pulses. ABDOMEN: Scaphoid. No peritonitis. MUSCULOSKELETAL: No clubbing or cyanosis. SKIN: Warm and well perfused with good skin turgor. Dry skin NEUROLOGIC: Cranial nerves II through XII grossly intact. PSYCH: Non-verbal CLINCAL LABS: Reviewed. White blood cell count increased from 14 to over 17,000. Hemoglobin dropped from 17-14. Creatinine elevated from 1.2-1.68. BNP over 5000. Albumin 2.4 RADIOLOGY: Report reviewed from March 2020 with PET scan demonstrating recurrent tumor along the left tongue base. Chest x-ray report demonstrates left greater than right lung nodules ECHO: Suboptimal study for left ventricular function however intact ventricles and atria ASSESSMENT: 1. Tongue-based cancer with recurrence 2. Underweight BMI 15.3 PLAN: 1. Recommend oncology consultation due to recurrent oropharyngeal cancer and treatment. 2. Agree with esophagram for aspiration risk 3. May need repeat PET computed tomography scan for disseminated disease 4. Surgical intervention pending oncology assessment and workup including esophagram 5. May also benefit from port placement due to poor IV access and cancer h istory. 6. May need EGD with dilation for radiation to the throat with high risk for stricture. 7. CT of the neck and chest the interim for recurrent esophageal tumor 8. Plan discussed with family at bedside. Thank you for this kind consultation. Past Medical History Past Medical History: Hypertension Additional Past Medical History / Comment(s): Throat cancer History of Any Multi-Drug Resistant Organisms: None Reported Past Surgical History: Orthopedic Surgery Smoking Status: Current every day smoker Medications and Allergies Home Medications Medication Instructions Recorded Confirmed Type Ibuprofen [Motrin] 800 mg PO Q8H PRN 04/06/21 04/06/21 History Levothyroxine Sodium [Synthroid] 100 mcg PO DAILY 04/06/21 04/06/21 History Losartan-Hctz 50-12.5 mg [Hyzaar 1 tab PO DAILY 04/06/21 04/06/21 History 50-12.5] Simvastatin [Zocor] 20 mg PO DAILY 04/06/21 04/06/21 History Allergies Allergy/AdvReac Type Severity Reaction Status Date / Time codeine Allergy Unknown Verified 04/06/21 12:43 Penicillins Allergy Unknown Verified 04/06/21 12:43 Surgical - Exam Vital Signs Temp Pulse Resp BP Pulse Ox 98.7 F 98 18 129/89 82 L 04/06/21 10:55 04/06/21 10:55 04/06/21 10:55 04/06/21 10:55 04/06/21 10:55 Results - Labs 04/07/21 08:58 04/07/21 08:58 Abnormal Lab Results - Last 24 Hours (Table) 04/06/21 04/06/21 04/06/21 Range/Units 11:43 11:43 11:43 WBC 14.2 H (3.8-10.6) k/uL Neutrophils # 13.6 H (1.3-7.7) k/uL Lymphocytes # 0.1 L (1.0-4.8) k/uL PT 13.3 H (9.0-12.0) sec INR 1.3 H (<1.2) Sodium (137-145) mmol/L Potassium (3.5-5.1) mmol/L Chloride (98-107) mmol/L BUN (9-20) mg/dL Creatinine (0.66-1.25) mg/dL Glucose (74-99) mg/dL Plasma Lactic Acid Rafael (0.7-2.0) mmol/L C-Reactive Protein (<1.0) mg/dL Total Protein (6.3-8.2) g/dL Albumin (3.5-5.0) g/dL Urine Protein Trace H (Negative) 04/06/21 04/06/21 04/06/21 Range/Units 11:43 11:43 16:36 WBC (3.8-10.6) k/uL Neutrophils # (1.3-7.7) k/uL Lymphocytes # (1.0-4.8) k/uL PT (9.0-12.0) sec INR (<1.2) Sodium 134 L (137-145) mmol/L Potassium (3.5-5.1) mmol/L Chloride 92 L (98-107) mmol/L BUN 65 H (9-20) mg/dL Creatinine (0.66-1.25) mg/dL Glucose 149 H (74-99) mg/dL Plasma Lactic Acid Rafael 3.7 H* 5.0 H* (0.7-2.0) mmol/L C-Reactive Protein (<1.0) mg/dL Total Protein (6.3-8.2) g/dL Albumin 3.2 L (3.5-5.0) g/dL Urine Protein (Negative) 04/06/21 04/06/21 04/07/21 Range/Units 19:31 22:32 03:02 WBC (3.8-10.6) k/uL Neutrophils # (1.3-7.7) k/uL Lymphocytes # (1.0-4.8) k/uL PT (9.0-12.0) sec INR (<1.2) Sodium (137-145) mmol/L Potassium (3.5-5.1) mmol/L Chloride (98-107) mmol/L BUN (9-20) mg/dL Creatinine (0.66-1.25) mg/dL Glucose (74-99) mg/dL Plasma Lactic Acid Rafael 6.6 H* 4.5 H* 3.6 H* (0.7-2.0) mmol/L C-Reactive Protein (<1.0) mg/dL Total Protein (6.3-8.2) g/dL Albumin (3.5-5.0) g/dL Urine Protein (Negative) 04/07/21 04/07/21 Range/Units 08:58 08:58 WBC 17.8 H (3.8-10.6) k/uL Neutrophils # (1.3-7.7) k/uL Lymphocytes # (1.0-4.8) k/uL PT (9.0-12.0) sec INR (<1.2) Sodium 136 L (137-145) mmol/L Potassium 3.0 L (3.5-5.1) mmol/L Chloride 97 L (98-107) mmol/L BUN 83 H (9-20) mg/dL Creatinine 1.68 H (0.66-1.25) mg/dL Glucose 142 H (74-99) mg/dL Plasma Lactic Acid Rafael (0.7-2.0) mmol/L C-Reactive Protein 42.1 H (<1.0) mg/dL Total Protein 5.0 L (6.3-8.2) g/dL Albumin 2.4 L (3.5-5.0) g/dL Urine Protein (Negative) Diabetes panel 04/06/21 04/07/21 Range/Units 11:43 08:58 Sodium 134 L 136 L (137-145) mmol/L Potassium 4.0 3.0 L (3.5-5.1) mmol/L Chloride 92 L 97 L (98-107) mmol/L Carbon Dioxide 28 25 (22-30) mmol/L BUN 65 H 83 H (9-20) mg/dL Creatinine 1.20 1.68 H (0.66-1.25) mg/dL Glucose 149 H 142 H (74-99) mg/dL Calcium 9.9 9.0 (8.4-10.2) mg/dL AST 27 29 (17-59) U/L ALT 17 14 (4-49) U/L Alkaline Phosphatase 93 75 (38-126) U/L Total Protein 6.3 5.0 L (6.3-8.2) g/dL Albumin 3.2 L 2.4 L (3.5-5.0) g/dL Calcium panel 04/06/21 04/07/21 Range/Units 11:43 08:58 Calcium 9.9 9.0 (8.4-10.2) mg/dL Albumin 3.2 L 2.4 L (3.5-5.0) g/dL Pituitary panel 04/06/21 04/07/21 Range/Units 11:43 08:58 Sodium 134 L 136 L (137-145) mmol/L Potassium 4.0 3.0 L (3.5-5.1) mmol/L Chloride 92 L 97 L (98-107) mmol/L Carbon Dioxide 28 25 (22-30) mmol/L BUN 65 H 83 H (9-20) mg/dL Creatinine 1.20 1.68 H (0.66-1.25) mg/dL Glucose 149 H 142 H (74-99) mg/dL Calcium 9.9 9.0 (8.4-10.2) mg/dL Adrenal panel 09/03/21 09/04/21 Range/Units 11:43 08:58 Sodium 134 L 136 L (137-145) mmol/L Potassium 4.0 3.0 L (3.5-5.1) mmol/L Chloride 92 L 97 L (98-107) mmol/L Carbon Dioxide 28 25 (22-30) mmol/L BUN 65 H 83 H (9-20) mg/dL Creatinine 1.20 1.68 H (0.66-1.25) mg/dL Glucose 149 H 142 H (74-99) mg/dL Calcium 9.9 9.0 (8.4-10.2) mg/dL Total Bilirubin 0.7 0.4 (0.2-1.3) mg/dL AST 27 29 (17-59) U/L ALT 17 14 (4-49) U/L Alkaline Phosphatase 93 75 (38-126) U/L Total Protein 6.3 5.0 L (6.3-8.2) g/dL Albumin 3.2 L 2.4 L (3.5-5.0) g/dL Assessment and Plan (1) Oropharyngeal cancer Current Visit: Yes Status: Acute Code(s): C10.9 - MALIGNANT NEOPLASM OF OROPHARYNX, UNSPECIFIED SNOMED Code(s): 595746727 (2) Pneumonia Current Visit: Yes Status: Acute Code(s): J18.9 - PNEUMONIA, UNSPECIFIED ORGANISM SNOMED Code(s): 815637055 (3) Sepsis Current Visit: Yes Status: Acute Code(s): A41.9 - SEPSIS, UNSPECIFIED ORGANISM SNOMED Code(s): 08886049 (4) Poor intravenous access Current Visit: Yes Status: Acute Code(s): Z78.9 - OTHER SPECIFIED HEALTH STATUS SNOMED Code(s): 051987112 (5) Failure to thrive in adult Current Visit: Yes Status: Acute Code(s): R62.7 - ADULT FAILURE TO THRIVE SNOMED Code(s): 307548936 (6) Dysphagia Current Visit: Yes Status: Acute Code(s): R13.10 - DYSPHAGIA, UNSPECIFIED SNOMED Code(s): 09947024 (7) Radiation therapy complication Current Visit: Yes Status: Acute Code(s): T66.XXXA - RADIATION SICKNESS, UNSPECIFIED, INITIAL ENCOUNTER SNOMED Code(s): 118599381
--- NOTE | 2021-04-07 14:26 | CT ---
EXAMINATION TYPE: CT neck chest without con DATE OF EXAM: 04/07/2021 COMPARISON: 05/10/2020 HISTORY: Patient poor historian. History of cancer per chart. CT DLP: 430.6 mGycm Automated exposure control for dose reduction was used. Images obtained from the level of the maxillary sinuses to the diaphragm without contrast. Exam limited by lack of any contrast. I see no cervical adenopathy. Epiglottis is normal. The tongue appears intact. There is widening of the vallecula at the base of the tongue that could be postsurgic al changes. This measures 11 mm. Prevertebral soft tissues are intact. Cervical vertebra have normal alignment. There is degenerative disc space narrowing at C5-6 and C6-7. There is thickening of the to ngue on the right side compared to the left. The trachea appears intact. Thyroid gland appears atroph ic or absent. There is diffuse pulmonary emphysema. There is airspace consolidation in both posterior lung newton. There is left pleural effusion. Heart size is normal. I see no hilar mass. There is no mediastinal ad enopathy. There is some spurring in the thoracic spine. There is no thoracic significant compression deformity. There is T5 anterior wedging 15%. IMPRESSION: There is some thickening of the tongue on the right side that could relate to treatment changes or tu mor. This appears not significantly different than previous exam. Extensive consolidation in the posterior lung newton with left pleural effusion. Moderately severe pu lmonary emphysema. Pulmonary consolidation and pleural fluid is essentially new compared to old exam. There are air bubbles in the left side and lung abscess is possible.
--- NOTE | 2021-04-07 14:48 | P.CNPUL ---
History of Present Illness Consult date: 04/07/21 Requesting physician: Milo Castrejon Reason for consult: hypoxemia, pneumonia, other Chief complaint: Malnutrition, possible pneumonia, weakness. History of present illness: Pulmonary consult dated 04/07/2021. 70-year-old male who looks much older than his stated age. He apparently has a history of throat cancer, and apparently underwent chemotherapy and radiation therapy. All the history is obtained from a female friend in the room, who apparently is his power of [place] attorney. The patient was sent into the emergency department because of profound weakness, inundation, decreased oral intake, and failure to thrive. He apparently was sitting in his chair, and kept on sliding down. He himself was not able to give any history whatsoever. He apparently denied any pain, and shortness of breath in the emergency department when evaluated by Dr. Valdivia. He has a history of hypertension, throat cancer, and hypothyroidism, as well as hyperlipidemia. It's not clear that he is taking any of his usual medications. He is typically on ibuprofen, Synthroid, losartan/HCTZ, and simvastatin. Most recent labs show a white count of 17.8, hemoglobin 14, hematocrit 40.7, and platelet count 234,000. PT is 13.3. INR 1.3. Sodium 136, potassium 3, chlorides 97, CO2 25, anion gap 14, BUN 83, and creatinine 1.68. Initial lactic acid was 4.5, repeat was 1.8. C-reactive protein 42.1, N-terminal proBNP 5180, and pro-calcitonin level was elevated at 7.68. Urine is negative. COVID testing was negative. Chest x-ray shows diffuse bilateral infiltrates. They could represent fluid overload and/or pneumonia. CAT scan of the lungs show evidence of significant consolidation, and possible lung abscess on the left side. I suspect chronic aspiration. Review of Systems A 14 point review of system cannot be obtained from the patient. According to the friend in the room, the patient's complaints have been poor oral intake, dehydration, failure to thrive, and profound weakness. Past Medical History Past Medical History: Hypertension Additional Past Medical History / Comment(s): Throat cancer History of Any Multi-Drug Resistant Organisms: None Reported Past Surgical History: Orthopedic Surgery Past Anesthesia/Blood Transfusion Reactions: No Reported Reaction Smoking Status: Current every day smoker Medications and Allergies Home Medications Medication Instructions Recorded Confirmed Type Ibuprofen [Motrin] 800 mg PO Q8H PRN 04/06/21 04/06/21 History Levothyroxine Sodium [Synthroid] 100 mcg PO DAILY 04/06/21 04/06/21 History Losartan-Hctz 50-12.5 mg [Hyzaar 1 tab PO DAILY 04/06/21 04/06/21 History 50-12.5] Simvastatin [Zocor] 20 mg PO DAILY 04/06/21 04/06/21 History Allergies Allergy/AdvReac Type Severity Reaction Status Date / Time codeine Allergy Unknown Verified 04/06/21 12:43 Penicillins Allergy Unknown Verified 04/06/21 12:43 Physical Exam Osteopathic Statement: *. No significant issues noted on an osteopathic structural exam other than those noted in the History and Physical/Consult. Vitals: Vital Signs Temp Pulse Pulse Resp BP BP BP 04/07/21 11:33 97.4 F L 77 17 102/67 04/07/21 08:08 04/07/21 07:50 97.5 F L 82 16 108/62 04/07/21 02:00 97.3 F L 92 18 118/76 04/06/21 23:37 90 20 04/06/21 22:25 97.6 F 90 20 131/83 04/06/21 22:00 97.3 F L 94 20 104/71 04/06/21 20:00 97.8 F 100 18 100/64 04/06/21 16:54 18 04/06/21 15:00 22 04/06/21 14:56 97.9 F Pulse Ox 04/07/21 11:33 99 04/07/21 08:08 93 L 04/07/21 07:50 100 04/07/21 02:00 94 L 04/06/21 23:37 04/06/21 22:25 96 04/06/21 22:00 94 L 04/06/21 20:00 89 L 04/06/21 16:54 04/06/21 15:00 04/06/21 14:56 Intake and Output 04/06/21 04/07/21 04/07/21 22:59 06:59 14:59 Intake Total 0 Output Total 500 Balance -500 0 Intake: Oral 0 Output: Urine 500 Straight 500 Other: # Voids 0 Weight 53.977 kg 53.977 kg The patient looks much older than his stated age, was really unable to give any history, and looks profoundly malnourished and cachectic. HEENT examination is grossly unremarkable. Neck supple. Full range of motion. No adenopathy thyromegaly or neck vein distention. Cardiovascular examination reveals regular rhythm rate. S1-S2 normal. No S3 or S4. No discernible murmur noted. Heart rate 77 bpm. Lungs reveal coarse bilateral rhonchi. No wheezes or crackles. The patient does not take deep breaths. Saturations are 99% on 15 L high flow nasal cannula. Abdomen is scaphoid. No masses. Abdomen is soft. Extremities are intact. No cyanosis clubbing or edema. Skin is without rash or lesion. Neurologic examination is difficult to assess. Patient is profoundly weak Barely responsive to any verbal stimuli. Results - Laboratory Findings CBC and BMP: 04/07/21 08:58 04/07/21 08:58 PT/INR, D-dimer PT 13.3 sec (9.0-12.0) H 04/06/21 11:43 INR 1.3 (<1.2) H 04/06/21 11:43 Abnormal lab findings: Abnormal Labs 04/06/21 04/06/21 04/06/21 11:43 11:43 11:43 WBC 14.2 H Neutrophils # 13.6 H Neutrophils # (Manual) Lymphocytes # 0.1 L Lymphocytes # (Manual) PT 13.3 H INR 1.3 H Sodium Potassium Chloride BUN Creatinine Glucose Plasma Lactic Acid Rafael C-Reactive Protein Total Protein Albumin Procalcitonin Urine Protein Trace H 04/06/21 04/06/21 04/06/21 11:43 11:43 16:36 WBC Neutrophils # Neutrophils # (Manual) Lymphocytes # Lymphocytes # (Manual) PT INR Sodium 134 L Potassium Chloride 92 L BUN 65 H Creatinine Glucose 149 H Plasma Lactic Acid Rafael 3.7 H* 5.0 H* C-Reactive Protein Total Protein Albumin 3.2 L Procalcitonin Urine Protein 04/06/21 04/06/21 04/07/21 19:31 22:32 03:02 WBC Neutrophils # Neutrophils # (Manual) Lymphocytes # Lymphocytes # (Manual) PT INR Sodium Potassium Chloride BUN Creatinine Glucose Plasma Lactic Acid Rafael 6.6 H* 4.5 H* 3.6 H* C-Reactive Protein Total Protein Albumin Procalcitonin Urine Protein 04/07/21 04/07/21 04/07/21 08:58 08:58 08:58 WBC 17.8 H Neutrophils # Neutrophils # (Manual) 17.40 H Lymphocytes # Lymphocytes # (Manual) 0.18 L PT INR Sodium 136 L Potassium 3.0 L Chloride 97 L BUN 83 H Creatinine 1.68 H Glucose 142 H Plasma Lactic Acid Rafael C-Reactive Protein 42.1 H Total Protein 5.0 L Albumin 2.4 L Procalcitonin 7.68 H Urine Protein - Diagnostic Findings Chest x-ray: image reviewed CT scan - chest: image reviewed Assessment and Plan Assessment: Suspected bilateral aspiration pneumonia, and possible anaerobic lung abscess. Profound malnutrition and inanition, with severe anorexia/cachexia syndrome. History of throat cancer, status post radiation and chemotherapy. Severe xerostomia. History of hypothyroidism. History of hypertension. History of hyperlipidemia. Plan: Plan dated 04/07/2021. Currently, the patient's on Rocephin, azithromycin, and clindamycin. The patient has been seen by infectious diseases. The patient should be considered for a PEG tube placement for nutrition. Apparently because of severe dryness of his oral cavity, and his previous history of throat cancer, the patient is unable to really eat at this point. The patient has severe anorexia/cachexia syndrome. His chest x-ray and CAT scan are reviewed. Cultures should be done. Prognosis is poor. Additional recommendations and suggestions are forthcoming. The patient's pro-calcitonin level was elevated. Time with Patient: Greater than 30
--- NOTE | 2021-04-07 18:58 | PN ---
PROGRESS NOTE DATE OF SERVICE: 04/07/2021 REASON FOR FOLLOWUP: Aspiration pneumonia. INTERVAL HISTORY: The patient is afebrile. The patient noted to be sleepy, lethargic. He is currently on high-flow oxygen. No vomiting, diarrhea has been reported by nursing staff. The patient remains to be lethargic, no oral intake. EXAMINATION: Blood pressure 102/67, pulse of 77, temperature 97.4. He is 99% on ( ) L high-flow oxygen. General description is an elderly male lying in bed in no distress. Respiratory system: Unlabored breathing. Coarse breath sounds in the bases with no wheeze. Heart S1, S2. Regular rate and rhythm. Abdomen soft, no tenderness. LAB: Hemoglobin 14, white count 17.1, BUN 83, creatinine 1.68. Urine for Legionella antigen is negative. DIAGNOSTIC IMPRESSION AND PLAN: Patient with left-sided pneumonia, concern for possible aspiration etiology. Patient to continue with Rocephin and clindamycin. Try to obtain a sputum. ( ) antibiotics and monitor clinical course closely. Family at the bedside, questions were answered. MMODL / IJN: [id number] /
[2021-04-08] MEDS: SODIUM CHLORIDE 0.9% 1,000 ML IV SCH ×4 (05:05→20:58)
[2021-04-08] MEDS: LEVOTHYROXINE 100 MCG TAB PO SCH (05:05)
[2021-04-08] MEDS: CLINDAMYCIN 600 MG in DEXTROSE 5% IN WATER 50 ML IVPB SCH ×6 (08:10→23:24)
[2021-04-08] MEDS: LOSARTAN-HCTZ 50-12.5 MG 1 EACH TAB PO SCH (08:11)
[2021-04-08] MEDS: ENOXAPARIN 40 MG/0.4 ML SYRINGE SQ SCH (08:11)
[2021-04-08] MEDS: ATORVASTATIN 10 MG TAB PO SCH (08:11)
[2021-04-08 08:51] LABS: Basophils % (A) 0 %; Eosinophils % (A) 0 %; HCT 38.5 % (39.0-53.0); HGB 12.9 gm/dL (13.0-17.5); Lymphocytes # (A) 0.2 k/uL (1.0-4.8); Lymphocytes % (A) 1 %; MCH 31.4 pg (25.0-35.0); MCHC 33.6 g/dL (31.0-37.0); MCV 93.5 fL (80.0-100.0); Mean Platelet Volume 9.1; Monocytes # (A) 0.3 k/uL (0-1.0); Monocytes % (A) 2 %; Neutrophils % (A) 96 %; Platelet Count 166 k/uL (150-450); RBC 4.12 m/uL (4.30-5.90); RDW 13.7 % (11.5-15.5); WBC 15.6 k/uL (3.8-10.6)
--- NOTE | 2021-04-08 09:03 | P.CRDCN ---
History of Present Illness Consult date: 04/08/21 Chief complaint: Generalized weakness History of present illness: This is a 70-year-old gentleman with a past medical history significant for hyp ertension as well as dyslipidemia as well as history of throat cancer status post chemotherapy as well as radiation. We are asked to see the patient as a consult for further evaluation of abnormal echocardiogram. The patient somewhat is a poor historian and the history was taken from the chart as well as from the nurse taking care of the patient. Apparently the patient was admitted to the hospital with profound weakness. His oral intake was very poor. No specific symptoms of chest pain or chest discomfort. No increasing in the shortness of breath. No dizziness or lightheadedness and no feeling of heart racing or fluttering. No history of coronary artery disease or congestive heart failure or any cardiac arrhythmia. The patient was diagnosed with suspected bilateral aspiration pneumonia with possible an anaerobic lung abscess. An echocardiogram was performed and revealed overall normal left ventricle systolic function with evidence of wall motion abnormalities involving the anteroseptal segment of the LV but please note that the echocardiogram was of poor quality giving the body habitus of the patient.. Hemodynamically the patient is stable. The EKG showed sinus mechanism with intraventricular conduction delay. Please note that the EKG itself can give also wall motion abnormalities. Past Medical History Past Medical History: Hypertension Additional Past Medical History / Comment(s): Throat cancer History of Any Multi-Drug Resistant Organisms: None Reported Past Surgical History: Orthopedic Surgery Past Anesthesia/Blood Transfusion Reactions: No Reported Reaction Smoking Status: Current every day smoker Medications and Allergies Home Medications Medication Instructions Recorded Confirmed Type Ibuprofen [Motrin] 800 mg PO Q8H PRN 04/06/21 04/06/21 History Levothyroxine Sodium [Synthroid] 100 mcg PO DAILY 04/06/21 04/06/21 History Losartan-Hctz 50-12.5 mg [Hyzaar 1 tab PO DAILY 04/06/21 04/06/21 History 50-12.5] Simvastatin [Zocor] 20 mg PO DAILY 04/06/21 04/06/21 History Allergies Allergy/AdvReac Type Severity Reaction Status Date / Time codeine Allergy Unknown Verified 04/06/21 12:43 Penicillins Allergy Unknown Verified 04/06/21 12:43 Physical Exam Vitals: Vital Signs Temp Pulse Resp BP BP Pulse Ox 04/08/21 04:00 77 21 110/64 94 L 04/08/21 02:00 78 20 04/08/21 01:50 99 04/07/21 23:39 97.7 F 78 20 104/52 95 04/07/21 20:00 97.9 F 74 20 118/60 93 L 04/07/21 16:00 97.9 F 87 17 114/58 97 04/07/21 11:33 97.4 F L 77 17 102/67 99 Intake and Output 04/07/21 04/08/21 04/08/21 22:59 06:59 14:59 Intake Total 2700 1250 Output Total 450 550 Balance 2250 700 Intake: Intake, IV Titration 2700 1250 Amount Clindamycin 600 mg In 50 50 Dextrose 5% in Water 50 ml @ 50 mls/hr IVPB Q8H [facility] Rx#:[id number] Sodium Chloride 0.9% 1, 1650 1200 000 ml @ 150 mls/hr IV . Q6H40M [facility] Rx#:[id number] Sodium Chloride 0.9% 1, 1000 000 ml @ 500 mls/hr IV . Q2H [facility] Rx#:[id number] Oral 0 Output: Urine 450 550 Uretheral (Diamond) 450 Other: Voiding Method Diaper Diaper Incontinent Incontinent Weight 58 kg - Constitutional General appearance: no acute distress - Respiratory Respiratory: bilateral: rales - Cardiovascular Rhythm: regular Heart sounds: normal: S1, S2 Abnormal Heart Sounds: systolic murmur Results 04/08/21 07:44 04/07/21 08:58 Cardiac Enzymes 04/07/21 Range/Units 08:58 AST 29 (17-59) U/L CBC 04/07/21 04/08/21 Range/Units 08:58 07:44 WBC 17.8 H 15.6 H (3.8-10.6) k/uL RBC 4.39 4.12 L (4.30-5.90) m/uL Hgb 14.0 D 12.9 L (13.0-17.5) gm/dL Hct 40.7 38.5 L (39.0-53.0) % Plt Count 234 166 (150-450) k/uL Comprehensive Metabolic Panel 04/07/21 Range/Units 08:58 Sodium 136 L (137-145) mmol/L Potassium 3.0 L (3.5-5.1) mmol/L Chloride 97 L (98-107) mmol/L Carbon Dioxide 25 (22-30) mmol/L BUN 83 H (9-20) mg/dL Creatinine 1.68 H (0.66-1.25) mg/dL Glucose 142 H (74-99) mg/dL Calcium 9.0 (8.4-10.2) mg/dL AST 29 (17-59) U/L ALT 14 (4-49) U/L Alkaline Phosphatase 75 (38-126) U/L Total Protein 5.0 L (6.3-8.2) g/dL Albumin 2.4 L (3.5-5.0) g/dL Current Medications Generic Name Dose Route Start Last Admin Trade Name Freq PRN Reason Stop Dose Admin Atorvastatin Calcium 10 mg 04/07/21 09:00 04/08/21 08:11 Atorvastatin 10 Mg Tab PO Not Given DAILY ZHENG Enoxaparin Sodium 40 mg 04/07/21 11:30 04/08/21 08:11 Enoxaparin 40 Mg/0.4 Ml Syringe SQ 40 mg DAILY ZHENG Administration HCTZ/Losartan Potassium 1 each 04/07/21 09:00 04/08/21 08:11 Losartan-Hctz 50-12.5 Mg 1 Each Tab PO Not Given DAILY ZHENG Ceftriaxone Sodium 2 gm/ 50 mls @ 100 mls/hr 04/07/21 09:00 04/07/21 08:56 Sodium Chloride IVPB 04/10/21 09:29 100 mls/hr Q24HR ZHENG Administration Clindamycin Phosphate 600 mg/ 54 mls @ 50 mls/hr 04/07/21 00:00 04/08/21 08:10 Dextrose/Water IVPB 50 mls/hr Q8H ZHENG Administration Sodium Chloride 1,000 mls @ 150 mls/hr 04/07/21 18:15 04/08/21 06:14 Saline 0.9% IV Not Given .Q6H40M ZHENG Levothyroxine Sodium 100 mcg 04/07/21 06:30 04/08/21 05:05 Levothyroxine 100 Mcg Tab PO Not Given DAILY@0630 ZHENG Miscellaneous Information 1 each 04/06/21 14:04 Pneumonia Protocol Utilized 1 Each Misc PO ONCE PRN Per Protocol Miscellaneous Information 1 each 04/07/21 11:17 Potassium Replacement Protocol 1 Each Misc MISCELLANE DAILY PRN Per Protocol Protocol Miscellaneous Information 1 each 04/07/21 11:24 Potassium Replacement Protocol 1 Each Misc MISCELLANE DAILY PRN Per Protocol Protocol Intake and Output 04/07/21 04/08/21 04/08/21 22:59 06:59 14:59 Intake Total 2700 1250 Output Total 450 550 Balance 2250 700 Intake: Intake, IV Titration 2700 1250 Amount Clindamycin 600 mg In 50 50 Dextrose 5% in Water 50 ml @ 50 mls/hr IVPB Q8H [facility] Rx#:[id number] Sodium Chloride 0.9% 1, 1650 1200 000 ml @ 150 mls/hr IV . Q6H40M [facility] Rx#:[id number] Sodium Chloride 0.9% 1, 1000 000 ml @ 500 mls/hr IV . Q2H [facility] Rx#:[id number] Oral 0 Output: Urine 450 550 Uretheral (Diamond) 450 Other: Voiding Method Diaper Diaper Incontinent Incontinent Weight 58 kg 04/08/21 07:44 04/07/21 08:58 Assessment and Plan Assessment: Assessment #1 bilateral aspiration pneumonia with possible an anaerobic lung abscess #2 failure to thrive #3 decreased oral intake #4 abnormal echocardiogram with mild aortic stenosis and wall motion abnormaliti es in the anteroseptal segment #5 abnormal EKG Plan #1 please note that the wall motion abnormalities could be induced by the EKG abnormality as "wide QRS" #2 in the absence of any chest pain or chest discomfort and normal cardiac enzymes I would suggest a conservative medical approach #3 no need for any cardiac intervention at this point #4 the patient remains hemodynamically stable #6 follow-up with the patient on when necessary case
[2021-04-08 09:06] LABS: Albumin 2.1 g/dL (3.5-5.0); Calcium 8.6 mg/dL (8.4-10.2); Potassium 3.1 mmol/L (3.5-5.1); Total Bilirubin 0.3 mg/dL (0.2-1.3); Total Protein 4.6 g/dL (6.3-8.2)
[2021-04-08] MEDS ORDERED: Potassium Replacement Protocol 1 EACH MISC MISCELLANE PRN (09:42)
[2021-04-08] MEDS: POTASSIUM CHLORIDE 10 MEQ in WATER FOR INJECTION 1 100ML.BAG IVPB SCH ×4 (10:22→17:44)
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
--- NOTE | 2021-04-08 12:39 | P.PN ---
Subjective Progress Note Date: 04/08/21 Principal diagnosis: Pneumonia. Pulmonary consult dated 04/07/2021. 70-year-old male who looks much older than his stated age. He apparently has a history of throat cancer, and apparently underwent chemotherapy and radiation therapy. 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 The patient was sent into the emergency department because of profound weakness, inundation, decreased oral intake, and failure to thrive. He apparently was sitting in his chair, and kept on sliding down. He himself was not able to give any history whatsoever. He apparently denied any pain, and shortness of breath in the emergency department when evaluated by Dr. Valdivia. He has a history of hypertension, throat cancer, and hypothyroidism, as well as hyperlipidemia. It's not clear that he is taking any of his usual medications. He is typically on ibuprofen, Synthroid, losartan/HCTZ, and simvastatin. Most recent labs show a white count of 17.8, hemoglobin 14, hematocrit 40.7, and platelet count 234,000. PT is 13.3. INR 1.3. Sodium 136, potassium 3, chlorides 97, CO2 25, anion gap 14, BUN 83, and creatinine 1.68. Initial lactic acid was 4.5, repeat was 1.8. C-reactive protein 42.1, N-terminal proBNP 5180, and pro-calcitonin level was elevated at 7.68. Urine is negative. COVID testing was negative. Chest x-ray shows diffuse bilateral infiltrates. They could represent fluid overload and/or pneumonia. CAT scan of the lungs show evidence of significant consolidation, and possible lung abscess on the left side. I suspect chronic aspiration. Progress note dated 04/06/2021. 70-year-old male, that we saw yesterday in consultation. He has a history of throat cancer, and has been undergoing chemotherapy and radiation therapy. The patient was sent to the emergency department because of profound weakness, as well as decreased oral intake, and failure to thrive. The patient looks much older than his stated age. In addition, he has a history of hypertension, hyperlipidemia, and hypothyroidism. Surgery was consulted for consideration of a PEG tube. From the pulmonary standpoint, he is doing about the same. White count 15.6, hemoglobin 12.9, hematocrit 38.5, and platelet count 166,000. Sodium 139, potassium 3.1, chloride 104, CO2 26, anion gap 9, BUN 85, creatinine 1.64. Albumin is 2.1. Pro-calcitonin is 7.68. Objective - Vital Signs Vital signs: Vital Signs Temp 97.9 F 04/08/21 08:00 Pulse 75 04/08/21 08:00 Resp 17 04/08/21 08:00 BP 134/82 04/08/21 08:00 Pulse Ox 98 04/08/21 08:00 Intake & Output 04/07/21 04/08/21 04/08/21 18:59 06:59 18:59 Intake Total 2700 1250 Output Total 1000 Balance 2700 250 Weight 53.977 kg 58 kg Intake: Intake, IV Titration 2700 1250 Amount Clindamycin 600 mg In 50 50 Dextrose 5% in Water 50 ml @ 50 mls/hr IVPB Q8H [facility] Rx#:[id number] Sodium Chloride 0.9% 1, 1650 1200 000 ml @ 150 mls/hr IV . Q6H40M [facility] Rx#:[id number] Sodium Chloride 0.9% 1, 1000 000 ml @ 500 mls/hr IV . Q2H [facility] Rx#:[id number] Oral 0 0 Output: Urine 1000 Uretheral (Diamond) 450 Other: Voiding Method Diaper Diaper Incontinent Incontinent - Exam The patient looks much older than his stated age. Severe anorexia/cachexia. HEENT examination is grossly unremarkable. Neck supple. Full range of motion. No adenopathy thyromegaly or neck vein distention. Cardiovascular examination reveals regular rhythm rate. S1-S2 normal. No S3 or S4. No discernible murmur noted. Heart rate 75 bpm. Lungs reveal coarse bilateral rhonchi. No wheezes or crackles. The patient does not take deep breaths. Saturations are 98% on 12 L high flow nasal cannula. Abdomen is scaphoid. No masses. Abdomen is soft. Extremities are intact. No cyanosis clubbing or edema. Skin is without rash or lesion. Neurologic examination is difficult to assess. Patient is profoundly weak Barely responsive to any verbal stimuli. - Labs CBC & Chem 7: 04/08/21 07:44 04/08/21 07:44 Labs: Abnormal Lab Results - Last 24 Hours (Table) 04/07/21 04/08/2121 Range/Units 08:58 07:44 07:44 WBC 15.6 H (3.8-10.6) k/uL RBC 4.12 L (4.30-5.90) m/uL Hgb 12.9 L (13.0-17.5) gm/dL Hct 38.5 L (39.0-53.0) % Neutrophils # 15.0 H (1.3-7.7) k/uL Lymphocytes # 0.2 L (1.0-4.8) k/uL Potassium 3.1 L (3.5-5.1) mmol/L BUN 85 H (9-20) mg/dL Creatinine 1.64 H (0.66-1.25) mg/dL Glucose 108 H (74-99) mg/dL Total Protein 4.6 L (6.3-8.2) g/dL Albumin 2.1 L (3.5-5.0) g/dL Procalcitonin 7.68 H (0.02-0.09) ng/mL Microbiology - Last 24 Hours (Table) 04/06/21 15:00 Blood Culture - Preliminary Blood No Growth after 24 hours Assessment and Plan Assessment: Suspected bilateral aspiration pneumonia, and possible anaerobic lung abscess. Acute hypoxemic respiratory failure secondary to above. Profound malnutrition and inanition, with severe anorexia/cachexia syndrome. History of throat cancer, status post radiation and chemotherapy. Severe xerostomia. History of hypothyroidism. History of hypertension. History of hyperlipidemia. Plan: Plan dated 04/07/2021. Currently, the patient's on Rocephin, azithromycin, and clindamycin. The patient has been seen by infectious diseases. The patient should be considered for a PEG tube placement for nutrition. Apparently because of severe dryness of his oral cavity, and his previous history of throat cancer, the patient is unable to really eat at this point. The patient has severe anorexia/cachexia syndrome. His chest x-ray and CAT scan are reviewed. Cultures should be done. Prognosis is poor. Additional recommendations and suggestions are forthcoming. The patient's pro-calcitonin level was elevated. Plan dated 04/08/2021. Currently, he is on antibiotics per infectious diseases. Surgery has been consulted for consideration of a PEG tube. The patient should have strict aspiration orders. He should not take anything by mouth. Head of bed should be elevated all times. He should not be supine in bed. Currently, he's receiving oxygen at 12 L high flow by nasal cannula. We should continue to wean his FiO2 is on Mrs. saturations are okay. Additional recommendations and suggestions are forthcoming. We will continue to follow make recommendations where appropriate. Time with Patient: Less than 30
--- NOTE | 2021-04-08 13:31 | P.PN ---
Subjective Progress Note Date: 04/08/21 CHIEF COMPLAINT: Oropharyngeal mass HISTORY OF PRESENT ILLNESS: The patient is a 70 year old male who presents to the hospital under weight, BMI 15.3 with oropharyngeal malignancy recurrence and unintentional weight loss due to inability to eat. He failed his swallow study. Family is at bedside with questions of care and nutrition. Per nursing, he is more alert today. REVIEW OF ORGAN SYSTEMS: No new chest pain. No fevers or chills. No productive sputum. PHYSICAL EXAM: VITALS: Reviewed CONSTITUTIONAL: Well developed and in no acute distress. Cachetic. EYES: Conjuctivae without sclera icterus. Extraocular movements grossly intact. HEAD, EARS, NOSE, THROAT: Dry buccal mucosa. Head is atraumatic, normocephalic. Hears conversational speech. No nasal drainage. RESPIRATORY: Non-labored respirations and equal bilateral excursions. No gross wheezes. CARDIOVASCULAR: 2+ radial pulses. ABDOMEN: Scaphoid. No peritonitis. MUSCULOSKELETAL: No clubbing or cyanosis. SKIN: Warm and well perfused with good skin turgor. Dry skin NEUROLOGIC: Cranial nerves II through XII grossly intact. PSYCH: Non-verbal CLINCAL LABS: Reviewed. WBC down from 17.6 to 15.6 with leukocytosis. Hgb down to 12.9. Lactic acid down now normal. IMAGES: CT neck and chest independently reviewed with questionable mass at the oropharynx. RADIOLOGY: CT neck and chest reports confirms pulmonary consolidation with possible lung abscess. Tumor along the oropharynx. ASSESSMENT: 1. Tongue-based cancer with recurrence 2. Underweight BMI 15.3 3. Lung consolidation. 4. Aspiration with dysphagia 5. Anemia PLAN: 1. Oncology consulted. 2. Recommend upper endoscopy with PEG tube placement and possible dilation due to aspiration pneumonia from failed swallows. 3. May need port placement pending oncology assessment. 4. May need PICC line for parenteral nutrition should PEG tube placement fail. Objective - Vital Signs Vital signs: Vital Signs Temp 97.9 F 04/08/21 08:00 Pulse 75 04/08/21 08:00 Resp 17 04/08/21 08:00 BP 134/82 04/08/21 08:00 Pulse Ox 98 04/08/21 08:00 Intake & Output 04/07/21 04/08/21 04/08/21 18:59 06:59 18:59 Intake Total 2700 1250 Output Total 1000 Balance 2700 250 Weight 53.977 kg 58 kg Intake: Intake, IV Titration 2700 1250 Amount Clindamycin 600 mg In 50 50 Dextrose 5% in Water 50 ml @ 50 mls/hr IVPB Q8H [facility] Rx#:[id number] Sodium Chloride 0.9% 1, 1650 1200 000 ml @ 150 mls/hr IV . Q6H40M [facility] Rx#:[id number] Sodium Chloride 0.9% 1, 1000 000 ml @ 500 mls/hr IV . Q2H [facility] Rx#:[id number] Oral 0 0 Output: Urine 1000 Uretheral (Diamond) 450 Other: Voiding Method Diaper Diaper Incontinent Incontinent - Labs CBC & Chem 7: 04/08/21 07:44 04/08/21 07:44 Labs: Abnormal Lab Results - Last 24 Hours (Table) 04/07/21 04/08/21 04/08/21 Range/Units 08:58 07:44 07:44 WBC 15.6 H (3.8-10.6) k/uL RBC 4.12 L (4.30-5.90) m/uL Hgb 12.9 L (13.0-17.5) gm/dL Hct 38.5 L (39.0-53.0) % Neutrophils # 15.0 H (1.3-7.7) k/uL Lymphocytes # 0.2 L (1.0-4.8) k/uL Potassium 3.1 L (3.5-5.1) mmol/L BUN 85 H (9-20) mg/dL Creatinine 1.64 H (0.66-1.25) mg/dL Glucose 108 H (74-99) mg/dL Total Protein 4.6 L (6.3-8.2) g/dL Albumin 2.1 L (3.5-5.0) g/dL Procalcitonin 7.68 H (0.02-0.09) ng/mL Microbiology - Last 24 Hours (Table) 04/06/21 15:00 Blood Culture - Preliminary Blood No Growth after 24 hours Assessment and Plan (1) Oropharyngeal cancer Current Visit: Yes Status: Acute Code(s): C10.9 - MALIGNANT NEOPLASM OF OROPHARYNX, UNSPECIFIED SNOMED Code(s): 900058255 (2) Pneumonia Current Visit: Yes Status: Acute Code(s): J18.9 - PNEUMONIA, UNSPECIFIED ORGANISM SNOMED Code(s): 717762999 (3) Sepsis Current Visit: Yes Status: Acute Code(s): A41.9 - SEPSIS, UNSPECIFIED ORGANISM SNOMED Code(s): 05459564 (4) Poor intravenous access Current Visit: Yes Status: Acute Code(s): Z78.9 - OTHER SPECIFIED HEALTH STATUS SNOMED Code(s): 438926253 (5) Failure to thrive in adult Current Visit: Yes Status: Acute Code(s): R62.7 - ADULT FAILURE TO THRIVE SNOMED Code(s): 884021211 (6) Dysphagia Current Visit: Yes Status: Acute Code(s): R13.10 - DYSPHAGIA, UNSPECIFIED SNOMED Code(s): 73459351 (7) Radiation therapy complication Current Visit: Yes Status: Acute Code(s): T66.XXXA - RADIATION SICKNESS, UNSPECIFIED, INITIAL ENCOUNTER SNOMED Code(s): 198853053 (8) Lactic acidosis Current Visit: Yes Status: Acute Code(s): E87.2 - ACIDOSIS SNOMED Code(s): 14519508
--- NOTE | 2021-04-08 23:45 | PN ---
PROGRESS NOTE DATE OF SERVICE: 04/08/2021 REASON FOR FOLLOWUP: Aspiration pneumonia. INTERVAL HISTORY: The patient is afebrile. The patient is slightly more awake and alert today. He is breathing comfortably. Denies having any chest pain. Did have some cough. No sputum production. No abdominal pain. No diarrhea has been reported. PHYSICAL EXAMINATION: Blood pressure is 152/91 with a pulse of 73, temperature 97.6. He is 97% on ( ). General description is an elderly male lying in bed in no distress. Respiratory system: Unlabored breathing. Decreased breath sounds, no wheeze. Heart S1, S2. Regular rate and rhythm. Abdomen soft, no tenderness. LABS: Hemoglobin is 12.1, white count 15.6, BUN of 85, creatinine 1.64. DIAGNOSTIC IMPRESSION AND PLAN: Patient admitted to the hospital with increasing shortness of breath and chest pain concerning for pneumonia. Patient is covered with Rocephin and gentamicin to continue while monitor clinical course closely. Continue supportive care. MMODL / IJN: [id number] /
[2021-04-09] MEDS: LEVOTHYROXINE 100 MCG TAB PO SCH (03:14)
[2021-04-09] MEDS: PANTOPRAZOLE 40 MG TABLET PO SCH (03:14)
[2021-04-09] MEDS: SODIUM CHLORIDE 0.9% 1,000 ML IV SCH ×2 (03:28→17:52)
[2021-04-09 07:59] LABS: Basophils % (A) 0 %; Eosinophils % (A) 0 %; HCT 44.2 % (39.0-53.0); HGB 14.4 gm/dL (13.0-17.5); Lymphocytes # (A) 0.3 k/uL (1.0-4.8); Lymphocytes % (A) 2 %; MCH 30.7 pg (25.0-35.0); MCHC 32.5 g/dL (31.0-37.0); MCV 94.5 fL (80.0-100.0); Mean Platelet Volume 9.8; Monocytes # (A) 0.4 k/uL (0-1.0); Monocytes % (A) 3 %; Neutrophils # (A) 15.8 k/uL (1.3-7.7); Neutrophils % (A) 95 %; Platelet Count 138 k/uL (150-450); RBC 4.67 m/uL (4.30-5.90); RDW 13.9 % (11.5-15.5); WBC 16.6 k/uL (3.8-10.6)
[2021-04-09] MEDS: LOSARTAN-HCTZ 50-12.5 MG 1 EACH TAB PO SCH (08:12)
[2021-04-09] MEDS: ATORVASTATIN 10 MG TAB PO SCH (08:12)
[2021-04-09 08:17] LABS: Albumin 2.2 g/dL (3.5-5.0); Calcium 8.7 mg/dL (8.4-10.2); Potassium 3.2 mmol/L (3.5-5.1); Total Bilirubin 0.3 mg/dL (0.2-1.3); Total Protein 4.9 g/dL (6.3-8.2)
[2021-04-09] MEDS: ENOXAPARIN 40 MG/0.4 ML SYRINGE SQ SCH ×2 (08:56→09:03)
[2021-04-09] MEDS: CLINDAMYCIN 600 MG in DEXTROSE 5% IN WATER 50 ML IVPB SCH ×4 (08:56→16:14)
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
--- NOTE | 2021-04-09 13:18 | P.PN ---
Subjective Progress Note Date: 04/09/21 Principal diagnosis: Aspiration pneumonia 70-year-old male who looks much older than his stated age. He apparently has a history of throat cancer, and apparently underwent chemotherapy and radiation therapy. All the history is obtained from a female friend in the room, who tereza arently is his power of associate attorney. The patient was sent into the emergency department because of profound weakness, inundation, decreased oral intake, and failure to thrive. He apparently was sitting in his chair, and kept on sliding down. He himself was not able to give any history whatsoever. He apparently denied any pain, and shortness of breath in the emergency department when evaluated by Dr. Valdivia. He has a history of hypertension, throat cancer, and hypothyroidism, as well as hyperlipidemia. It's not clear that he is taking any of his usual medications. He is typically on ibuprofen, Synthroid, losartan/HCTZ, and simvastatin. Most recent labs show a white count of 17.8, hemoglobin 14, hematocrit 40.7, and platelet count 234,000. PT is 13.3. INR 1.3. Sodium 136, potassium 3, chlorides 97, CO2 25, anion gap 14, BUN 83, and creatinine 1.68. Initial lactic acid was 4.5, repeat was 1.8. C-reactive protein 42.1, N-terminal proBNP 5180, and pro-calcitonin level was elevated at 7.68. Urine is negative. COVID testing was negative. Chest x-ray shows diffuse bilateral infiltrates. They could represent fluid overload and/or pneumonia. CAT scan of the lungs show evidence of significant consolidation, and possible lung abscess on the left side. I suspect chronic aspiration. Progress note dated 04/06/2021. 70-year-old male, that we saw yesterday in consultation. He has a history of throat cancer, and has been undergoing chemotherapy and radiation therapy. The patient was sent to the emergency department because of profound weakness, as well as decreased oral intake, and failure to thrive. The patient looks much older than his stated age. In addition, he has a history of hypertension, hyperlipidemia, and hypothyroidism. Surgery was consulted for consideration of a PEG tube. From the pulmonary standpoint, he is doing about the same. White count 15.6, hemoglobin 12.9, hematocrit 38.5, and platelet count 166,000. Sodium 139, potassium 3.1, chloride 104, CO2 26, anion gap 9, BUN 85, creatinine 1.64. Albumin is 2.1. Pro-calcitonin is 7.68. The patient is seen today 04/09/2021 in follow-up on the regular medical floor. He is currently resting fairly comfortably in bed. He is awake and alert. He has requesting to go home. He is so weak and fragile. Still requiring 10 L high flow nasal cannula to maintain O2 saturations in the low 90s. He is afebrile. Hemodynamically stable. White count 16.6. Hemoglobin 14.4. Sodium 143. Potassium 3.2. Creatinine 1.29. He is continued on clindamycin and ceftriaxone. Lovenox for DVT prophylaxis. 9#850 MLS per hour. Objective - Vital Signs Vital signs: Vital Signs Temp 97.5 F L 04/09/21 12:00 Pulse 72 04/09/21 12:00 Resp 18 04/09/21 12:00 BP 141/96 04/09/21 12:00 Pulse Ox 93 L 04/09/21 12:00 Intake & Output 04/08/21 04/09/21 04/09/21 18:59 06:59 18:59 Intake Total 550 1850 Output Total 350 Balance 200 1850 Weight 58.5 kg Intake: IV 1850 Clindamycin 600 mg In 50 Dextrose 5% in Water 50 ml @ 50 mls/hr IVPB Q8H [facility] Rx#:[id number] Sodium Chloride 0.9% 1, 1800 000 ml @ 150 mls/hr IV . Q6H40M [facility] Rx#:[id number] Intake, IV Titration 550 Amount Clindamycin 600 mg In 50 Dextrose 5% in Water 50 ml @ 50 mls/hr IVPB Q8H [facility] Rx#:[id number] Potassium Chloride 10 meq 400 In Water For Injection 1 100ml.bag @ 100 mls/hr IVPB Q1HR [facility] Rx#: [id number] cefTRIAXone 2 gm In 100 Sodium Chloride 0.9% 50 ml @ 100 mls/hr IVPB Q24HR [facility] Rx#:[id number] Oral 0 0 Output: Urine 350 Other: Voiding Method Indwelling Catheter Indwelling Catheter Indwelling Catheter - Exam GENERAL EXAM: Alert, frail, cachectic 70-year-old gentleman, on 10 L high flow nasal cannula, fairly comfortable in no apparent distress. HEAD: Normocephalic. EYES: Normal reaction of pupils, equal size. NOSE: Clear with pink turbinates. THROAT: No erythema or exudates. NECK: No masses, no JVD. CHEST: No chest wall deformity. LUNGS: Equal air entry with crackles in the bilateral bases, few scattered rhonchi CVS: S1 and S2 normal with no audible murmur, regular rhythm. ABDOMEN: No hepatosplenomegaly, normal bowel sounds, no guarding or rigidity. SPINE: No scoliosis or deformity SKIN: No rashes CENTRAL NERVOUS SYSTEM: No focal deficits, tone is normal in all 4 extremities. EXTREMITIES: There is no peripheral edema. No clubbing, no cyanosis. Peripheral pulses are intact. - Labs CBC & Chem 7: 04/09/21 07:14 04/09/21 07:14 Labs: Abnormal Lab Results - Last 24 Hours (Table) 04/09/21 04/09/21 Range/Units 07:14 07:14 WBC 16.6 H (3.8-10.6) k/uL Plt Count 138 L (150-450) k/uL Neutrophils # 15.8 H (1.3-7.7) k/uL Lymphocytes # 0.3 L (1.0-4.8) k/uL Potassium 3.2 L (3.5-5.1) mmol/L Chloride 110 H (98-107) mmol/L BUN 76 H (9-20) mg/dL Creatinine 1.29 H (0.66-1.25) mg/dL Glucose 103 H (74-99) mg/dL Total Protein 4.9 L (6.3-8.2) g/dL Albumin 2.2 L (3.5-5.0) g/dL Microbiology - Last 24 Hours (Table) 04/06/21 15:00 Blood Culture - Preliminary Blood No Growth after 48 hours Assessment and Plan Assessment: 1 Suspected bilateral aspiration pneumonia, and possible anaerobic lung abscess. 2 Acute hypoxemic respiratory failure secondary to above. 3 Profound malnutrition and inanition, with severe anorexia/cachexia syndrome. 4 History of throat cancer, status post radiation and chemotherapy. 5 Severe xerostomia. 6 History of hypothyroidism. 7 History of hypertension. 8 History of hyperlipidemia. Plan: The patient was seen and evaluated by Dr. Wang The patient is somewhat agitated and requesting to go home He is quite weak and cachectic Overall prognosis is quite poor Consider home with hospice In the interim, continue current medications Titrate the FiO2 as tolerated I, the cosigning physician, performed a history & physical examination of the patient. Lungs sounds with few scattered rhonchi, crackles in the bases Main taining good O2 saturations in the 90s on 10 L high flow nasal cannula I discussed the assessment and plan of care with my nurse practitioner, Pilar Finnegan. I attest to the above note as dictated by her.
[2021-04-09] MEDS ORDERED: PROPOFOL 10 MG/ML 20 ML VIAL IV ONE (14:55)
[2021-04-09] MEDS ORDERED: KETAMINE 10 MG/ML 20 ML VIAL ONE (14:55)
[2021-04-09] MEDS ORDERED: IV FLUID CONTINUATION 1,000 ML IV ONE (14:57)
--- NOTE | 2021-04-09 15:42 | P.PCN ---
Date of Procedure: 04/09/21 Description of Procedure: PREOPERATIVE DIAGNOSIS: Severe protein malnutrition secondary to inadequate protein intake. Anorexia secondary to malignancy. Under weight, BMI 16.6 Oropharyngeal cancer tongue base Aspiration pneumonia Hypoalbuminemia Dysphagia POSTOPERATIVE DIAGNOSIS: Severe protein malnutrition secondary to inadequate protein intake. Anorexia secondary to malignancy. Under weight, BMI 16.6 Oropharyngeal cancer tongue base Aspiration pneumonia Hypoalbuminemia Dysphagia Chronic gastritis and through some bleeding OPERATION: Esophagogastroduodenoscopy with percutaneous endoscopic gastrostomy tube placement 20-Senegalese, EndoVive Pull technique GreenGar. SURGEON: Marcie Musa MD ANESTHESIA: MAC. INDICATIONS: The patient is a 70-year-old male who presents underweight, inadequate protein intake, severe protein malnutrition, dysphagia and oropharyngeal cancer. Benefits and risks of the procedure were described. Informed consent was obtained from his family. DESCRIPTION: The patient was laid in supine position. After adequate IV sedation a bite block was placed. An Olympus gastroscope was passed along the posterior oropharynx down the distal esophagus. The stomach was entered. Gastritis with recent bleeding was encountered. The antrum appeared unremarkable for acute ulcers. A point along the anterior surface, anterior surface of the gastric body of the stomach was selected. The scope was passed to the duodenum which was unremarkable. The skin was cleansed with Betadine and an incision was made after illuminating the proposed PEG tube site. Using a 16-Senegalese needle, a guidewire was fed into the stomach under endoscopic visualization. A snare was used to pull the guidewireout of the mouth. Over the guidewire, the PEG tube was pulled over the guidewire until it exited through the skin incision. The guidewire was removed. The round fitting clasp was placed over the gastrostomy tube and fixed at 3 cm at the skin. A feeding adapter was placed at the cut end of the feeding tube. An endoscopic captured image of the gastrostomy tube within the stomach was made. The patient tolerated the procedure well. Findings: 1. Hill grade 2 lower esophageal valve. 2. Acute gastritis is recent bleeding 3. No acute gastric ulcers. 4. No acute duodenitis. 5. Thick phlegmon of the posterior oropharynx suctioned Disposition: 1. Will start tube feeds within 24 hours with goal determined by independent freight agent. 2. Strict nothing by mouth due to aspiration pneumonia along
--- NOTE | 2021-04-09 17:36 | P.CONS ---
History of Present Illness - Reason for Consult Consult date: 04/09/21 head/neck cancer Requesting physician: Milo Castrejon - Chief Complaint weakness - History of Present Illness Mr. Batista is a very pleasant 70 yo male with history of head and neck cancer, squamous cell of the tongue, s/p chemotherapy and radiation in 2019, who is here for failure to thrive and weakness. He was last seen by Dr. Vargas in 05/2020 at which time there was concern of uptake in tongue on PET, and ENT follow up with biopsy was recommended. Unclear if this was done as I do not see these records. In the ED, Work up with CXR and CT neck reveal thickening of the tongue, stable compared to prior scans, as well as new lung consolidation with air-fluid level concerning for possible abscess. On antibiotics. Surgery consulted for possible PEG due to concerns of aspiration. We were consulted due to history of head/neck cancer and evaluation for possible recurrence. Pt does not believe he had his tongue biopsy done. Oncologic History: Mr Batista is a pleasant white male, with no major medical issues at baseline. The patient had presented to his PCP in 09/22, complaining of slowly progressive hoarseness, as well as fullness in the upper part of his throat and trouble swallowing, over the prior one and a half months. On examination he was found to have a swelling in the left upper neck, as well as swelling of the left side of the tongue. The patient was referred to ENT and seen on 09/29/18. He underwent office nasopharyngeal laryngoscopy. He was found to have a large left base of tongue mass with extension into the left oropharynx and oral cavity. The patient was then referred to ENT oncology at [facility] in seen on 10/06/18. He underwent direct laryngoscopy with biopsy, as well as flexible bronchoscopy and esophagoscopy on 10/20/18. He was found to have a submucosal invasive base of tongue mass crossing well approximated line almost to the contralateral tonsil. (5-2 cm of the time was spent. It also extended up to the left tonsil and was fixed in nature. It extended well into the oral tongue submucosally. 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 The patient had a PET scan on 10/24/18, which showed a 3.5 x 3.3 cm left oropharyngeal mass, about 5-6 cm in craniocaudal dimension. The SUV was 19.1. There was subcentimeter right submandibular node with SUV 4.88 and a subcentimeter left anterior neck node at the hyoid bone level with SUV 5.09. There was a 1.3 cm left nasal lesion with SUV 9.58, which was subsequently biopsied and found to be benign. Internal examination of the nasal cavity previously had been negative. There was uptake in the right lateral mandibular level which is felt to be related to a dental cavity. There is some reticular groundglass opacity in the left upper lobe indicative of inflammation The patient was seen by radiation oncology, Dr. Barger, and also referred here for further evaluation and recommendations. there is no prior history of malignancy. The patient is a chronic smoker. He started concurrent chemo RT on 12/09/18, and is s/p 6 wkly cycles. His RT was delayed as he missed 3 days due to discomfort with the mask. He completed chemo on 01/20/19. He had a post treatment PET in 04/22 as recommended by Rad Onc and ENT. This showed marked decrease in size and uptake in the primary site. No uptake noted in armen areas. He is on f/u with ENT with no evidence of progression on local exam Telemedicine Visit 11/09/19: the patient was supposed to see ENT for follow-up after his visit here in 07/22. He states that he "did not make it down there" as he was very busy and then subsequently due to the coronavirus epidemic. He denied any f/c/n/v/LAD. He is able to swallow all kinds of food. appetite has increased significantly. He thinks he has gained a few pounds in weight. H e still has increased secretions, especially in the morning. He is increasing his activity level, persistently. His ROS is otherwise as per HPI and negative out of 10. Last seen in clinic by Dr. Vargas on 05/17/20: the patient had been noncompliant with follow-up as noted above. His CT scans had shown some increase in progression in the right lower lobe of the lung. He had a PET scan done, that was negative in the lung but did show increased uptake at the base of the tongue suspicious for local recurrence. The patient has had ENT. Follow-up in 03/23 and states that he was told that local exam was negative for evidence of recurrence. the patient denied any fevers/chills/nausea/vomiting/LAD/hospitalization. He had a follow-up with ENT yesterday and had a scope. He states that he was told that the left side was "thicker" than the right. A biopsy was recommended. He is continued to have difficulty swallowing solids especially meat, because of poor dentition mainly as well as underlying dry mouth. Appetite is actually fair. He has been mainly using soft foods and liquids, including Ensure. Weight has been stable. Upper airway secretions are improved, but still significant. He continues to be active, but has started physical therapy because of persistent muscle weakness Review of systems otherwise as per HPI and negative out of 10 Plan from 05/2020: The patient's CT scan results were discussed with him. No new findings are noted, other than increased soft tissue at the left base of the tongue, versus the right. This represents the area of uptake on the prior PET scan. There does not seem to be actual increase in the amount of soft tissue versus before. - The patient was therefore advised to make sure that he follows up with ENT and Mrs. biopsy in 2 weeks as recommended. - Continue surveillance. From my standpoint with CT scan in 3 months. Follow-u p plan will obviously need to be changed if the patient's biopsy comes back positive. - Continue physical therapy and attempts to increase types of food intake. Failed to follow up afterwards Past Medical History Past Medical History: Hypertension Additional Past Medical History / Comment(s): Throat cancer History of Any Multi-Drug Resistant Organisms: None Reported Past Surgical History: Orthopedic Surgery Past Anesthesia/Blood Transfusion Reactions: No Reported Reaction Smoking Status: Current every day smoker Medications and Allergies Home Medications Medication Instructions Recorded Confirmed Type Ibuprofen [Motrin] 800 mg PO Q8H PRN 04/06/21 04/06/21 History Levothyroxine Sodium [Synthroid] 100 mcg PO DAILY 04/06/21 04/06/21 History Losartan-Hctz 50-12.5 mg [Hyzaar 1 tab PO DAILY 04/06/21 04/06/21 History 50-12.5] Simvastatin [Zocor] 20 mg PO DAILY 04/06/21 04/06/21 History Allergies Allergy/AdvReac Type Severity Reaction Status Date / Time codeine Allergy Unknown Verified 04/06/21 12:43 Penicillins Allergy Unknown Verified 04/06/21 12:43 Physical Exam Vitals: Vital Signs Temp Pulse Resp BP Pulse Ox 04/09/21 12:00 97.5 F L 72 18 141/96 93 L 04/09/21 08:00 97.4 F L 99 20 137/97 91 L 04/09/21 03:33 97.4 F L 77 18 153/92 97 04/09/21 02:00 18 04/08/21 23:27 97.6 F 72 18 159/90 100 04/08/21 20:00 97.6 F 66 24 168/91 97 04/08/21 16:00 97.5 F L 64 17 147/81 99 04/08/21 14:00 74 17 Intake and Output 04/08/21 04/09/21 04/09/21 22:59 06:59 14:59 Intake Total 550 1850 0 Output Total 350 Balance 200 1850 0 Intake: IV 1850 Clindamycin 600 mg In 50 Dextrose 5% in Water 50 ml @ 50 mls/hr IVPB Q8H [facility] Rx#:[id number] Sodium Chloride 0.9% 1, 1800 000 ml @ 150 mls/hr IV . Q6H40M [facility] Rx#:[id number] Intake, IV Titration 550 Amount Clindamycin 600 mg In 50 Dextrose 5% in Water 50 ml @ 50 mls/hr IVPB Q8H [facility] Rx#:[id number] Potassium Chloride 10 meq 400 In Water For Injection 1 100ml.bag @ 100 mls/hr IVPB Q1HR [facility] Rx#: [id number] cefTRIAXone 2 gm In 100 Sodium Chloride 0.9% 50 ml @ 100 mls/hr IVPB Q24HR [facility] Rx#:[id number] Oral 0 0 0 Output: Urine 350 Other: Voiding Method Indwelling Catheter Indwelling Catheter Indwelling Catheter Weight 58.5 kg Gen: No acute distress. Cachectic and dissheveled. HEENT: mucosa moist. Neck: Supple Lungs: no respiratory distress. Heart: Regular rate. Neuro: Alert and oriented x3. Mumbled speech due to prior head/neck cancer treatment. Psych: Appropriate affect. Results CBC & Chem 7: 04/09/21 07:14 04/09/21 07:14 Labs: Abnormal Lab Results - Last 24 Hours (Table) 04/09/21 04/09/21 Range/Units 07:14 07:14 WBC 16.6 H (3.8-10.6) k/uL Plt Count 138 L (150-450) k/uL Neutrophils # 15.8 H (1.3-7.7) k/uL Lymphocytes # 0.3 L (1.0-4.8) k/uL Potassium 3.2 L (3.5-5.1) mmol/L Chloride 110 H (98-107) mmol/L BUN 76 H (9-20) mg/dL Creatinine 1.29 H (0.66-1.25) mg/dL Glucose 103 H (74-99) mg/dL Total Protein 4.9 L (6.3-8.2) g/dL Albumin 2.2 L (3.5-5.0) g/dL Microbiology - Last 24 Hours (Table) 04/06/21 15:00 Blood Culture - Preliminary Blood No Growth after 48 hours Comments: CT neck with stable tongue swelling from prior treatment, and new possible lung abscess. Chest x-ray: report reviewed CT scan - chest: report reviewed Assessment and Plan Assessment: 1. Squamous cell carcinoma of the tongue 2. Concern for tongue cancer recurrence 3. Failure to thrive 4. Lung mass/consolidation, concern for abscess 5. Leukocytosis, likely reactive 6. Thrombocytopenia Plan: Mr. Batista is a very pleasant 70 yo male with history of squamous cell carcinoma of the tongue s/p chemoRT in 2019, here for failure to thrive. Work up with thickening of his tongue, which is stable compared to prior CT. Has not follow up with oncology since 05/2020 at which time there was concern about recurrence of his cancer and biopsy by ENT was recommended/planned. Does not appear that he had this done. He is on antibiotics for possible pneumonia/abscess as seen on lung imaging. Will need ENT evaluation and biopsy to rule out recurrence. Unclear if he has disease progression at this time. CT chest/neck unchanged. Changes in the lung possibly due to infection and not necessarily malignancy however cannot rule out met's. Due to overall health condition, comfort care is not unreasonable. Discussed with pt and he is agreeable to the plan. All questions answered.
--- NOTE | 2021-04-09 21:20 | PN ---
PROGRESS NOTE DATE OF SERVICE: 04/09/2021 REASON FOR FOLLOWUP: Aspiration pneumonia. INTERVAL HISTORY: The patient is afebrile. This patient is status post PEG tube placement this morning per Surgery. The patient tolerated the procedure. The patient remains slightly lethargic, unable to provide any history. No vomiting or diarrhea has been reported. PHYSICAL EXAMINATION: Blood pressure 86/63 with a pulse of 91, temperature of 97. He is 91% on 15 L high- flow oxygen. GENERAL DESCRIPTION: General description is an elderly male lying in bed in no distress. RESPIRATORY SYSTEM: Unlabored breathing. Decreased breath sounds at the bases. No wheeze. HEART: S1, S2. Regular rate and rhythm. ABDOMEN: Soft. No tenderness. LABS: BUN of 76, creatinine 1.29. Blood culture has been negative. DIAGNOSTIC IMPRESSION AND PLAN: 1. Patient with left-sided aspiration pneumonia, covered with Rocephin and clindamycin because of his allergies; to continue. Try to obtain a sputum sample to narrow down his antibiotics. 2. Patient with sacral pressure ulcer. Continue local wound care with [facility], keeping the area off pressure. He may benefit from surgical debridement. Family at the bedside. Their questions were answered. MMODL / IJN: [id number] /
[2021-04-10] MEDS: SODIUM CHLORIDE 0.9% 1,000 ML IV SCH ×6 (02:44→19:43)
[2021-04-10] MEDS: CLINDAMYCIN 600 MG in DEXTROSE 5% IN WATER 50 ML IVPB SCH ×8 (02:44→23:23)
[2021-04-10] MEDS: PANTOPRAZOLE 40 MG TABLET PO SCH (05:46)
[2021-04-10] MEDS: LEVOTHYROXINE 100 MCG TAB PO SCH (05:46)
[2021-04-10] MEDS: ENOXAPARIN 40 MG/0.4 ML SYRINGE SQ SCH (08:41)
[2021-04-10 09:11] LABS: Basophils % (A) 0 %; Eosinophils % (A) 0 %; HCT 44.4 % (39.0-53.0); HGB 14.5 gm/dL (13.0-17.5); Lymphocytes # (A) 0.4 k/uL (1.0-4.8); Lymphocytes % (A) 2 %; MCH 30.8 pg (25.0-35.0); MCHC 32.7 g/dL (31.0-37.0); MCV 94.1 fL (80.0-100.0); Mean Platelet Volume 10.9; Monocytes # (A) 0.6 k/uL (0-1.0); Monocytes % (A) 3 %; Neutrophils # (A) 17.7 k/uL (1.3-7.7); Neutrophils % (A) 94 %; Platelet Count 120 k/uL (150-450); RBC 4.71 m/uL (4.30-5.90); RDW 13.9 % (11.5-15.5); WBC 18.8 k/uL (3.8-10.6)
[2021-04-10 09:26] LABS: Albumin 2.1 g/dL (3.5-5.0); Potassium 3.4 mmol/L (3.5-5.1); Total Bilirubin 0.4 mg/dL (0.2-1.3); Total Protein 4.9 g/dL (6.3-8.2)
--- NOTE | 2021-04-10 09:56 | CDI ---
Documentation Clarification Form Date: 04/10/2021 09:29:30 AM From: Alise Siddiqui RN, CCDS Admit Date: 04/06/2021 01:16:00 PM Patient Name: Mario Batista Visit Number: [id number] Discharge Date: ATTENTION: The Clinical Documentation Specialists (CDI) and [facility] Coding Staff appreciate your assistance in clarifying documentation. Please respond to the clarification below the line at the bottom and electronically sign. The CDI & [facility] Coding staff will review the response and follow-up if needed. Please note: Queries are made part of the Legal Health Record. If you have any questions, please contact the author of this message via ITS. Dr. Milo Castrejon Your patient has the documented symptom of Altered Mental Status in the emergency department assessment, H&P and subsequent progress notes. Additional clarification regarding the etiology/cause of this symptom is requested. 04/07 Pulmonary consult: Suspected bilateral aspiration pneumonia. Profound malnutrition and inanitation, with severe anorexia/cachexia syndrome. History/Risk Factors: Hypertension, Throat cancer Clinical Indicators: 70-year-old male present to ED with history of throat cancer with extreme weakness and altered mental status and only alert x2. 04/06 Vital signs: 129/89 98 18 98.1 82 % RA 04/06 Labs: WBC 14.2, NA 134, BUN 65, CR 1.20, Lactic acid 3.7, 6.6, 4.5 BNP 2690, COVID not detected 04/06 Chest X Ray: showed bilateral atypical pneumonia type picture. 04/06 CT neck chest: Extensive consolidation in the posterior lung [place] with left pleural effusion. Moderately severe pulmonary emphysema. There are air bubbles in the left side and lung abscess is possible Treatment: Neuro checks per protocol Clindamycin 600 mg IVBP Q 8 HRS Rocephin 2 GM IVPB Q 24 HRS 04/07-04/09 Zithromax 500 MG IV once 04/06 .9NS 500 MLS IV Bolus Please clarify the etiology of the symptom of Altered Mental Status: [ ] Metabolic encephalopathy due to sepsis [ ] Other condition (please specify) [ ] Unable to determine (Template Last Revised: September 2020) metabolic encephalopathy due to sepsis MTDD
[2021-04-10] MEDS: ATORVASTATIN 10 MG TAB PO SCH (10:43)
[2021-04-10] MEDS: LOSARTAN-HCTZ 50-12.5 MG 1 EACH TAB PO SCH (10:44)
--- NOTE | 2021-04-10 11:18 | P.PN ---
<Janki Leija - Last Filed: 04/10/21 11:12> Subjective Progress Note Date: 04/10/21 CHIEF COMPLAINT: Malnutrition HISTORY OF PRESENT ILLNESS: Patient is status post PEG tube placement. Tube feedings to be started today. Lying in bed comfortably. Afebrile. WBC is up at 18.8 PHYSICAL EXAM: VITAL SIGNS: Reviewed GENERAL: Well-developed in no acute distress. HEENT: No sclera icterus. Extraocular movements grossly intact. Moist buccal mucosa. Head is atraumatic, normocephalic. Hears conversational speech. No nasal drainage. NECK: Supple without lymphadenopathy. CHEST: Non-labored respirations and equal bilateral excursions. CARDIOVASCULAR: Palpable 2+ radial pulses. ABDOMEN: Soft. Nondistended. Nontender. MUSCULOSKELETAL: No clubbing or cyanosis. NEUROLOGIC: No focal or lateralizing signs. Cranial nerves II through XII grossly intact. PSYCH: Nonverbal SKIN: Well perfused. Good skin turgor. ASSESSMENT: Severe protein malnutrition secondary to inadequate protein intake. Status post PEG tube placement Anorexia secondary to malignancy. Under weight, BMI 16.6 Oropharyngeal cancer tongue base Aspiration pneumonia Hypoalbuminemia Dysphagia Chronic gastritis and through some bleeding Oropharyngeal cancer with reoccurrence PLAN: -PEG tube feedings to be initiated today per dietitian recommendations -Continue supportive care -Awaiting oncology evaluation Physician Actuarial Associate note has been reviewed by physician. Signing provider agrees with the documented findings, assessment, and plan of care. Objective - Vital Signs Vital signs: Vital Signs Temp 97.8 F 04/10/21 08:00 Pulse 101 H 04/10/21 08:00 Resp 19 04/10/21 08:00 BP 122/76 04/10/21 08:00 Pulse Ox 92 L 04/10/21 08:00 Intake & Output 04/09/21 04/10/21 04/10/21 18:59 06:59 18:59 Intake Total 1550 Output Total 650 560 Balance 900 -560 Weight 62 kg Intake: IV 1500 Clindamycin 600 mg In 100 Dextrose 5% in Water 50 ml @ 50 mls/hr IVPB Q8H [facility] Rx#:[id number] Sodium Chloride 0.9% 1, 1200 000 ml @ 150 mls/hr IV . Q6H40M [facility] Rx#:[id number] Intake, IV Titration 50 Amount cefTRIAXone 2 gm In 50 Sodium Chloride 0.9% 50 ml @ 100 mls/hr IVPB Q24HR [facility] Rx#:[id number] Oral 0 Output: Urine 650 560 Other: Voiding Method Indwelling Catheter Indwelling Catheter Indwelling Catheter # Voids 1 - Labs CBC & Chem 7: 04/10/21 08:18 04/10/21 08:18 Labs: Abnormal Lab Results - Last 24 Hours (Table) 04/10/21 04/10/21 Range/Units 08:18 08:18 WBC 18.8 H (3.8-10.6) k/uL Plt Count 120 L (150-450) k/uL Neutrophils # 17.7 H (1.3-7.7) k/uL Lymphocytes # 0.4 L (1.0-4.8) k/uL Sodium 147 H (137-145) mmol/L Potassium 3.4 L (3.5-5.1) mmol/L Chloride 116 H (98-107) mmol/L Carbon Dioxide 20 L (22-30) mmol/L BUN 86 H (9-20) mg/dL Creatinine 1.30 H (0.66-1.25) mg/dL Glucose 149 H (74-99) mg/dL Total Protein 4.9 L (6.3-8.2) g/dL Albumin 2.1 L (3.5-5.0) g/dL Microbiology - Last 24 Hours (Table) 04/06/21 15:00 Blood Culture - Preliminary Blood No Growth after 72 hours <Marcie Musa N - Last Filed: 04/11/21 11:41> Subjective CHIEF COMPLAINT: Oropharyngeal mass HISTORY OF PRESENT ILLNESS: The patient is a 70 year old male who presents to the hospital under weight, BMI 15.3 with oropharyngeal malignancy recurrence and unintentional weight loss due to inability to eat. He had a gastrostomy tube placement. Features of gastritis as found in the stomach for bleeding. REVIEW OF ORGAN SYSTEMS: No new chest pain. No fevers or chills. No productive sputum. PHYSICAL EXAM: VITALS: Reviewed CONSTITUTIONAL: Well developed and in no acute distress. Cachetic. EYES: Conjuctivae without sclera icterus. Extraocular movements grossly intact. HEAD, EARS, NOSE, THROAT: Dry buccal mucosa. Head is atraumatic, normocephalic. Hears conversational speech. No nasal drainage. RESPIRATORY: Non-labored respirations and equal bilateral excursions. No gross wheezes. CARDIOVASCULAR: 2+ radial pulses. ABDOMEN: Scaphoid. No peritonitis. PEG tube site clean dry and intact. MUSCULOSKELETAL: No clubbing or cyanosis. SKIN: Warm and well perfused with good skin turgor. Dry skin NEUROLOGIC: Cranial nerves II through XII grossly intact. PSYCH: Non-verbal CLINCAL LABS: Reviewed. Hemoglobin is stable 14.4-14.5. ASSESSMENT: 1. Tongue-based cancer with recurrence 2. Underweight BMI 15.3 3. Lung consolidation. 4. Aspiration with dysphagia 5. Anemia 6. Status post gastrostomy tube placement. PLAN: 1. May start tube feeds. 2. Placement of Port-A-Cath pending oncology assessment Objective - Vital Signs Vital signs: Vital Signs Temp 97.3 F L 04/11/21 08:00 Pulse 88 04/11/21 08:00 Resp 24 04/11/21 08:00 BP 130/89 04/11/21 08:00 Pulse Ox 95 04/11/21 08:21 Intake & Output 04/10/21 04/11/21 04/11/21 18:59 06:59 18:59 Intake Total 10 230 Output Total 950 Balance 10 -720 Weight 59.5 kg Intake: Oral 0 Tube Feeding 10 230 Output: Urine 950 Other: Voiding Method Indwelling Catheter Indwelling Catheter Indwelling Catheter - Labs CBC & Chem 7: 04/11/21 09:29 04/11/21 09:29 Labs: Abnormal Lab Results - Last 24 Hours (Table) 04/10/21 04/11/21 04/11/21 Range/Units 23:18 06:09 09:29 WBC 18.5 H (3.8-10.6) k/uL Sodium (137-145) mmol/L Potassium (3.5-5.1) mmol/L Chloride (98-107) mmol/L BUN (9-20) mg/dL Glucose (74-99) mg/dL POC Glucose (mg/dL) 137 H 134 H (75-99) mg/dL Total Protein (6.3-8.2) g/dL Albumin (3.5-5.0) g/dL 04/11/21 Range/Units 09:29 WBC (3.8-10.6) k/uL Sodium 149 H (137-145) mmol/L Potassium 2.5 L* (3.5-5.1) mmol/L Chloride 119 H (98-107) mmol/L BUN 76 H (9-20) mg/dL Glucose 157 H (74-99) mg/dL POC Glucose (mg/dL) (75-99) mg/dL Total Protein 4.8 L (6.3-8.2) g/dL Albumin 2.1 L (3.5-5.0) g/dL Microbiology - Last 24 Hours (Table) 04/06/21 15:00 Blood Culture - Preliminary Blood No Growth after 96 hours Assessment and Plan (1) Oropharyngeal cancer Current Visit: Yes Status: Acute Code(s): C10.9 - MALIGNANT NEOPLASM OF OROPHARYNX, UNSPECIFIED SNOMED Code(s): 886757138 (2) Pneumonia Current Visit: Yes Status: Acute Code(s): J18.9 - PNEUMONIA, UNSPECIFIED ORGANISM SNOMED Code(s): 070549192 (3) Sepsis Current Visit: Yes Status: Acute Code(s): A41.9 - SEPSIS, UNSPECIFIED ORGANISM SNOMED Code(s): 28072672 (4) Poor intravenous access Current Visit: Yes Status: Acute Code(s): Z78.9 - OTHER SPECIFIED HEALTH STATUS SNOMED Code(s): 912822710 (5) Failure to thrive in adult Current Visit: Yes Status: Acute Code(s): R62.7 - ADULT FAILURE TO THRIVE SNOMED Code(s): 195743535 (6) Dysphagia Current Visit: Yes Status: Acute Code(s): R13.10 - DYSPHAGIA, UNSPECIFIED SNOMED Code(s): 38617490 (7) Radiation therapy complication Current Visit: Yes Status: Acute Code(s): T66.XXXA - RADIATION SICKNESS, UNSPECIFIED, INITIAL ENCOUNTER SNOMED Code(s): 233090995 (8) Lactic acidosis Current Visit: Yes Status: Acute Code(s): E87.2 - ACIDOSIS SNOMED Code(s): 31370740
--- NOTE | 2021-04-10 17:38 | P.PN ---
Subjective Progress Note Date: 04/10/21 Principal diagnosis: Acute aspiration pneumonia On 04/10/2021 patient seen in follow-up on selective care unit, he remains on high flow oxygen 15 L high flow nasal cannula with a pulse ox of 92-94%. Has a weak congested cough, his mentation is lethargic, does not verbalize, his been nothing by mouth for aspiration pneumonia, his status post PEG tube insertion yesterday on 04/09/2021, anticipated to start his tube feedings today. Daughter is at the bedside. His last chest x-ray from 04/07/2021 showed bilateral left greater than right airspace and nodular opacities suggesting multifocal pneumonia. Continue antibiotic coverage includes clindamycin, Rocephin was also added, ID service is following, patient is currently employed and on [employer] rate of 150 ML per hour. No acute events overnight. His blood cultures have shown no growth, his labs have been reviewed, and he has persistent and uptrending leukocytosis, his white blood cell count is 18.8, hemoglobin is 14.5, sodium is 147, potassium is 3.4, chloride is 160, B1 is 86, and creatinine 1.3. Calcitonin was elevated at 7.68 Objective - Vital Signs Vital signs: Vital Signs Temp 98.2 F 04/10/21 16:00 Pulse 82 04/10/21 16:00 Resp 18 04/10/21 16:00 BP 135/61 04/10/21 16:00 Pulse Ox 94 L 04/10/21 16:08 Intake & Output 04/09/21 04/10/21 04/10/21 18:59 06:59 18:59 Intake Total 1550 10 Output Total 650 560 Balance 900 -560 10 Weight 62 kg 62 kg Intake: IV 1500 Clindamycin 600 mg In 100 Dextrose 5% in Water 50 ml @ 50 mls/hr IVPB Q8H [facility] Rx#:[id number] Sodium Chloride 0.9% 1, 1200 000 ml @ 150 mls/hr IV . Q6H40M [facility] Rx#:[id number] Intake, IV Titration 50 Amount cefTRIAXone 2 gm In 50 Sodium Chloride 0.9% 50 ml @ 100 mls/hr IVPB Q24HR [facility] Rx#:[id number] Oral 0 Tube Feeding 10 Output: Urine 650 560 Other: Voiding Method Indwelling Catheter Indwelling Catheter Indwelling Catheter # Voids 1 - Exam GENERAL EXAM: Lethargic, cachectic-looking 70-year-old white male, resting in bed, on 15 L of oxygen with a pulse ox of 93%, comfortable in no apparent distress. HEAD: Normocephalic/atraumatic. EYES: Normal reaction of pupils, equal size. Conjunctiva pink, sclera white. NOSE: Clear with pink turbinates. THROAT: No erythema or exudates. NECK: No masses, no JVD, no thyroid enlargement, no adenopathy. CHEST: No chest wall deformity. Symmetrical expansion. LUNGS: Equal air entry with diffuse rhonchi and wheezes CVS: Regular rate and rhythm, normal S1 and S2, no gallops, no murmurs, no rubs ABDOMEN: Soft, nontender. No hepatosplenomegaly, normal bowel sounds, no guarding or rigidity. EXTREMITIES: No clubbing, no edema, no cyanosis, 2+ pulses and upper and lower extremities. MUSCULOSKELETAL: Muscle strength and tone normal. Significant wasting of muscle mass evident on physical exam SPINE: No scoliosis or deformity SKIN: No rashes CENTRAL NERVOUS SYSTEM: Lethargic, confused,. No focal deficits, tone is normal in all 4 extremities. - Labs CBC & Chem 7: 04/10/21 08:18 04/10/21 08:18 Labs: Abnormal Lab Results - Last 24 Hours (Table) 04/10/21 04/10/21 Range/Units 08:18 08:18 WBC 18.8 H (3.8-10.6) k/uL Plt Count 120 L (150-450) k/uL Neutrophils # 17.7 H (1.3-7.7) k/uL Lymphocytes # 0.4 L (1.0-4.8) k/uL Sodium 147 H (137-145) mmol/L Potassium 3.4 L (3.5-5.1) mmol/L Chloride 116 H (98-107) mmol/L Carbon Dioxide 20 L (22-30) mmol/L BUN 86 H (9-20) mg/dL Creatinine 1.30 H (0.66-1.25) mg/dL Glucose 149 H (74-99) mg/dL Total Protein 4.9 L (6.3-8.2) g/dL Albumin 2.1 L (3.5-5.0) g/dL Microbiology - Last 24 Hours (Table) 04/06/21 15:00 Blood Culture - Preliminary Blood No Growth after 72 hours Assessment and Plan Plan: Assessment: #1. Acute multifocal bilateral aspiration pneumonia and possibility of anaerobic abscess #2. Acute hypoxic respiratory failure secondary to the above #3. Profound malnutrition, with severe anorexia/cachexia syndrome #4. Chronic dysphagia, currently nothing by mouth, status post PEG tube placement on 04/09/2021 #5. History of throat cancer, status post radiation and chemotherapy #6. Severe xerostomia #7. History of hypertension #8. History of hyperlipidemia #9. History of hypothyroidism Plan: Continue current antibiotics Switch IV fluids to D5W at 75 ML per hour Anticipate starting to feedings today Maintain aspiration precautions Follow-up chest x-ray tomorrow Overall prognosis is guarded I performed a history & physical examination of the patient and discussed their management with my nurse practitioner, Haydee Rondon. I reviewed the nurse practitioner's note and agree with the documented findings and plan of care. Lung sounds are positive for diminished breath sounds, with rhonchi throughout the lung [place]. The findings and the impression was discussed with the patient. I attest to the documentation by the nurse practitioner. Time with Patient: Less than 30
--- NOTE | 2021-04-10 18:44 | PN ---
PROGRESS NOTE DATE OF SERVICE: 04/10/2021 REASON FOR FOLLOWUP: Aspiration pneumonia. INTERVAL HISTORY: The patient is afebrile. The patient remains sleepy, lethargic; unable to provide any history. No worsening has been noticed. PHYSICAL EXAMINATION: Blood pressure 135/61, pulse of 82, temperature 98.2. He is 92% on high-flow oxygen. GENERAL DESCRIPTION: General description is an elderly male lying in bed in no distress. RESPIRATORY SYSTEM: Unlabored breathing. Coarse breath sounds bilaterally. No wheeze. HEART: S1, S2. Regular rate and rhythm. ABDOMEN: Soft. No tenderness. LABS: Hemoglobin is 14.2, white count 18.8, BUN of 86, creatinine 1.30. Blood culture negative. Sputum not collected. DIAGNOSTIC IMPRESSION AND PLAN: Patient admitted to hospital with weakness, shortness of breath, concerning for aspiration pneumonia. The patient is currently covered with Rocephin and clindamycin; to continue. Try to obtain a sputum sample to adjust antibiotics further. Family at the bedside. Their questions were answered. MMODL / IJN: [id number] /
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
--- NOTE | 2021-04-10 19:37 | P.PN ---
Subjective Progress Note Date: 04/10/21 Principal diagnosis: Head and Neck Cancer. Patient is lethargic, difficult to arise, unable to answer questions, opens eyes but does not answer. Seen and evaluated this am. CT Neck: Not significantly changed from prior although redemonstrated right neck thickness Status Post EGD Objective - Vital Signs Vital signs: Vital Signs Temp 98.2 F 04/10/21 16:00 Pulse 82 04/10/21 16:00 Resp 18 04/10/21 16:00 BP 135/61 04/10/21 16:00 Pulse Ox 94 L 04/10/21 16:08 Intake & Output 04/09/21 04/10/21 04/10/21 18:59 06:59 18:59 Intake Total 1550 10 Output Total 650 560 Balance 900 -560 10 Weight 62 kg 59.5 kg Intake: IV 1500 Clindamycin 600 mg In 100 Dextrose 5% in Water 50 ml @ 50 mls/hr IVPB Q8H [facility] Rx#:[id number] Sodium Chloride 0.9% 1, 1200 000 ml @ 150 mls/hr IV . Q6H40M [facility] Rx#:[id number] Intake, IV Titration 50 Amount cefTRIAXone 2 gm In 50 Sodium Chloride 0.9% 50 ml @ 100 mls/hr IVPB Q24HR [facility] Rx#:[id number] Oral 0 Tube Feeding 10 Output: Urine 650 560 Other: Voiding Method Indwelling Catheter Indwelling Catheter Indwelling Catheter # Voids 1 - Exam Lethargic Dry mucus membranes opens eyes to stimuli No increased effort of respirations HR: Tachy Abdomen SOft Extremities: Dry skin NISHI neuro status due to mental status - Labs CBC & Chem 7: 04/10/21 08:18 04/10/21 08:18 Labs: Abnormal Lab Results - Last 24 Hours (Table) 04/10/21 04/10/21 Range/Units 08:18 08:18 WBC 18.8 H (3.8-10.6) k/uL Plt Count 120 L (150-450) k/uL Neutrophils # 17.7 H (1.3-7.7) k/uL Lymphocytes # 0.4 L (1.0-4.8) k/uL Sodium 147 H (137-145) mmol/L Potassium 3.4 L (3.5-5.1) mmol/L Chloride 116 H (98-107) mmol/L Carbon Dioxide 20 L (22-30) mmol/L BUN 86 H (9-20) mg/dL Creatinine 1.30 H (0.66-1.25) mg/dL Glucose 149 H (74-99) mg/dL Total Protein 4.9 L (6.3-8.2) g/dL Albumin 2.1 L (3.5-5.0) g/dL Microbiology - Last 24 Hours (Table) 04/06/21 15:00 Blood Culture - Preliminary Blood No Growth after 96 hours Assessment and Plan (1) Oropharyngeal cancer Current Visit: Yes Status: Acute Code(s): C10.9 - MALIGNANT NEOPLASM OF OROPHARYNX, UNSPECIFIED SNOMED Code(s): 126213330 (2) Pneumonia Current Visit: Yes Status: Acute Code(s): J18.9 - PNEUMONIA, UNSPECIFIED ORGANISM SNOMED Code(s): 440102489 (3) Protein-calorie malnutrition, severe Current Visit: Yes Status: Acute Code(s): E43 - UNSPECIFIED SEVERE PROTEIN- CALORIE MALNUTRITION SNOMED Code(s): 922706602 Plan: Patient to continue treatment of immediate situation of acute hypoxic respiratory failure and multifocal pneumonia, as well as malnutrition. Renal function continues to improve, platelets are trending down. Monitor for DIC If overall status improves with support care restaging related to his known history of head and neck cancer is needed. Will need to await recovery of acute situation and renal function Monitor CBC
[2021-04-10 23:22] LABS: Glucose,Whole Blood 137 mg/dL (75-99)
[2021-04-10] MEDS: INSULIN ASPART (NovoLOG) 100 UNIT/ML VIAL SQ SCH (23:23)
[2021-04-11] MEDS: PANTOPRAZOLE 40 MG TABLET PO SCH (00:43)
[2021-04-11] MEDS: SODIUM CHLORIDE 0.9% 1,000 ML IV SCH ×2 (01:58→09:02)
[2021-04-11 06:11] LABS: Glucose,Whole Blood 134 mg/dL (75-99)
[2021-04-11] MEDS: INSULIN ASPART (NovoLOG) 100 UNIT/ML VIAL SQ SCH ×4 (06:33→23:21)
[2021-04-11] MEDS: LEVOTHYROXINE 100 MCG TAB PO SCH (06:33)
--- NOTE | 2021-04-11 07:20 | XR ---
EXAMINATION TYPE: XR chest 1V portable DATE OF EXAM: 04/11/2021 HISTORY: Shortness of breath. COMPARISON: 04/07/2021 TECHNIQUE: Single view of the chest is submitted. FINDINGS: Demonstrated are scattered senescent parenchymal change. Patchy perihilar and basilar infiltrates persist although there is improving aeration at the lung bas es. The heart is stable. Hilar and mediastinal structures are within normal limits. Degenerative changes are seen of the dorsal spine. IMPRESSION: 1. Patchy perihilar and basilar infiltrates persist although there is improving aeration at the lung bases.
[2021-04-11] MEDS: ENOXAPARIN 40 MG/0.4 ML SYRINGE SQ SCH (09:01)
[2021-04-11] MEDS: ATORVASTATIN 10 MG TAB PO SCH (09:02)
[2021-04-11] MEDS: LOSARTAN-HCTZ 50-12.5 MG 1 EACH TAB PO SCH (09:02)
[2021-04-11 10:37] LABS: Albumin 2.1 g/dL (3.5-5.0); Calcium 8.6 mg/dL (8.4-10.2); Total Bilirubin 0.3 mg/dL (0.2-1.3); Total Protein 4.8 g/dL (6.3-8.2)
[2021-04-11 10:49] LABS: Potassium 2.5 mmol/L (3.5-5.1)
[2021-04-11 10:54] LABS: Basophils % (A) 0 %; Eosinophils % (A) 0 %; HCT 43.8 % (39.0-53.0); HGB 14.9 gm/dL (13.0-17.5); Lymphocytes # (A) 0.4 k/uL (1.0-4.8); Lymphocytes % (A) 2 %; MCH 31.7 pg (25.0-35.0); MCHC 33.9 g/dL (31.0-37.0); MCV 93.4 fL (80.0-100.0); Mean Platelet Volume 11.8; Monocytes # (A) 0.3 k/uL (0-1.0); Monocytes % (A) 2 %; Neutrophils # (A) 17.6 k/uL (1.3-7.7); Neutrophils % (A) 95 %; RBC 4.69 m/uL (4.30-5.90); WBC 18.5 k/uL (3.8-10.6)
[2021-04-11] MEDS: CLINDAMYCIN 600 MG in DEXTROSE 5% IN WATER 50 ML IVPB SCH ×6 (11:05→23:20)
--- NOTE | 2021-04-11 11:38 | P.PN ---
Subjective Progress Note Date: 04/11/21 Principal diagnosis: Acute aspiration pneumonia On 04/10/2021 patient seen in follow-up on selective care unit, he remains on high flow oxygen 15 L high flow nasal cannula with a pulse ox of 92-94%. Has a weak congested cough, his mentation is lethargic, does not verbalize, his been nothing by mouth for aspiration pneumonia, his status post PEG tube insertion yesterday on 04/09/2021, anticipated to start his tube feedings today. Daughter is at the bedside. His last chest x-ray from 04/07/2021 showed bilateral left greater than right airspace and nodular opacities suggesting multifocal pneumonia. Continue antibiotic coverage includes clindamycin, Rocephin was also added, ID service is following, patient is currently employed and on [employer] rate of 150 ML per hour. No acute events overnight. His blood cultures have shown no growth, his labs have been reviewed, and he has persistent and uptrending leukocytosis, his white blood cell count is 18.8, hemoglobin is 14.5, sodium is 147, potassium is 3.4, chloride is 160, B1 is 86, and creatinine 1.3. ProCalcitonin was elevated at 7.68 On today's evaluation on 04/11/2021 patient seen in follow-up on selective care unit. He is still quite lethargic, he mumbles a few words incomprehensibly. He remains on 15 L high flow nasal cannula, and his pulse ox is 93%, lung sounds are actually diminished, with diffuse rhonchi in the right lung. Repeat chest x-ray today has been reviewed showing patchy perihilar and basilar infiltrates with some improvement in aeration at the lung bases. Patient has been afebrile overnight, blood pressure stable, he has very weak nonproductive cough. He is status post PEG tube insertion on oral 04/10/2021, his tube feedings have been initiated, and he is receiving VItal AF at 38 mL's per hour, with standard water flushes at 30 mL every 4 hours, his IV 0.9 normal saline is running at a rate of 150 ML per hour, his labs have been reviewed, patient still has elevated white blood count of 18.5, hemoglobin is 14.9, his serum sodium continues to trend up, and is up to 149 on today's labs, potassium is 2.5, chloride is 119, and creatinine is 1.16 which is an improvement value compared yesterday. Catheter is in place, and patient is producing adequate amount of urine. Patient remains on clindamycin for antibiotic coverage. Objective - Vital Signs Vital signs: Vital Signs Temp 97.3 F L 04/11/21 08:00 Pulse 88 04/11/21 08:00 Resp 24 04/11/21 08:00 BP 130/89 04/11/21 08:00 Pulse Ox 95 04/11/21 08:21 Intake & Output 04/10/21 04/11/21 04/11/21 18:59 06:59 18:59 Intake Total 10 230 Output Total 950 Balance 10 -720 Weight 59.5 kg Intake: Oral 0 Tube Feeding 10 230 Output: Urine 950 Other: Voiding Method Indwelling Catheter Indwelling Catheter Indwelling Catheter - Exam GENERAL EXAM: Lethargic, cachectic-looking 70-year-old white male, resting in bed, on 15 L of oxygen with a pulse ox of 93%, comfortable in no apparent distress. HEAD: Normocephalic/atraumatic. EYES: Normal reaction of pupils, equal size. Conjunctiva pink, sclera white. NOSE: Clear with pink turbinates. THROAT: No erythema or exudates. NECK: No masses, no JVD, no thyroid enlargement, no adenopathy. CHEST: No chest wall deformity. Symmetrical expansion. LUNGS: Equal air entry with diffuse rhonchi and wheezes CVS: Regular rate and rhythm, normal S1 and S2, no gallops, no murmurs, no rubs ABDOMEN: Soft, nontender. No hepatosplenomegaly, normal bowel sounds, no guarding or rigidity. EXTREMITIES: No clubbing, no edema, no cyanosis, 2+ pulses and upper and lower extremities. MUSCULOSKELETAL: Muscle strength and tone normal. Significant wasting of muscle mass evident on physical exam SPINE: No scoliosis or deformity SKIN: No rashes CENTRAL NERVOUS SYSTEM: Lethargic, confused,. No focal deficits, tone is normal in all 4 extremities. - Labs CBC & Chem 7: 04/11/21 09:29 04/11/21 09:29 Labs: Abnormal Lab Results - Last 24 Hours (Table) 04/10/21 04/11/21 04/11/21 Range/Units 23:18 06:09 09:29 WBC 18.5 H (3.8-10.6) k/uL Sodium (137-145) mmol/L Potassium (3.5-5.1) mmol/L Chloride (98-107) mmol/L BUN (9-20) mg/dL Glucose (74-99) mg/dL POC Glucose (mg/dL) 137 H 134 H (75-99) mg/dL Total Protein (6.3-8.2) g/dL Albumin (3.5-5.0) g/dL 04/11/21 Range/Units 09:29 WBC (3.8-10.6) k/uL Sodium 149 H (137-145) mmol/L Potassium 2.5 L* (3.5-5.1) mmol/L Chloride 119 H (98-107) mmol/L BUN 76 H (9-20) mg/dL Glucose 157 H (74-99) mg/dL POC Glucose (mg/dL) (75-99) mg/dL Total Protein 4.8 L (6.3-8.2) g/dL Albumin 2.1 L (3.5-5.0) g/dL Microbiology - Last 24 Hours (Table) 04/06/21 15:00 Blood Culture - Preliminary Blood No Growth after 96 hours Assessment and Plan Plan: Assessment: #1. Acute multifocal bilateral aspiration pneumonia and possibility of anaerobic abscess #2. Acute hypoxic respiratory failure secondary to the above #3. Profound malnutrition, with severe anorexia/cachexia syndrome #4. Chronic dysphagia, currently nothing by mouth, status post PEG tube placement on 04/09/2021 #5. History of throat cancer, status post radiation and chemotherapy #6. Severe xerostomia #7. History of hypertension #8. History of hyperlipidemia #9. History of hypothyroidism Plan: Patient remains on high flow oxygen, his cough is weak and ineffective Today's chest x-ray has been reviewed showing some improvement at the lung bases Continue current antibiotics Maintain aspiration precautions Today's labs have been reviewed IV fluids to D5W at a rate of 75 ML per hour Overall prognosis is guarded I performed a history & physical examination of the patient and discussed their management with my nurse practitioner, Haydee Rondon. I reviewed the nurse practitioner's note and agree with the documented findings and plan of care. Lung sounds are positive for diminished breath sounds, with rhonchi throughout the lung [place]. The findings and the impression was discussed with the patient. I attest to the documentation by the nurse practitioner. Time with Patient: Less than 30
[2021-04-11 12:01] LABS: Glucose,Whole Blood 137 mg/dL (75-99)
[2021-04-11] MEDS: DEXTROSE 5% IN WATER 1,000 ML IV SCH ×2 (12:20→23:21)
[2021-04-11] MEDS: POTASSIUM CHLORIDE 10 MEQ in WATER FOR INJECTION 1 100ML.BAG IVPB SCH ×6 (12:27→18:18)
[2021-04-11 13:22] LABS: Platelet Count 93 k/uL (150-450)
--- NOTE | 2021-04-11 15:23 | P.PN ---
<Janki Leija - Last Filed: 04/11/21 15:20> Subjective Progress Note Date: 04/11/21 CHIEF COMPLAINT: Malnutrition HISTORY OF PRESENT ILLNESS: Patient is status post PEG tube placement. Patient is tolerating tube feedings. 2 was currently at 30 mL per hour. He had 3 mL residual. No vomiting reported per nursing staff. Patient Lying in bed comfortably. Afebrile. WBC is 18.5 sodium 149 potassium 2.5 creatinine 1.16 PHYSICAL EXAM: VITAL SIGNS: Reviewed GENERAL: Well-developed in no acute distress. HEENT: No sclera icterus. Extraocular movements grossly intact. Moist buccal mucosa. Head is atraumatic, normocephalic. Hears conversational speech. No nasal drainage. NECK: Supple without lymphadenopathy. CHEST: Non-labored respirations and equal bilateral excursions. CARDIOVASCULAR: Palpable 2+ radial pulses. ABDOMEN: Soft. Nondistended. Nontender. PEG tube site clean dry and intact MUSCULOSKELETAL: No clubbing or cyanosis. NEUROLOGIC: No focal or lateralizing signs. Cranial nerves II through XII grossly intact. PSYCH: Nonverbal SKIN: Well perfused. Good skin turgor. ASSESSMENT: Severe protein malnutrition secondary to inadequate protein intake. Status post PEG tube placement Anorexia secondary to malignancy. Under weight, BMI 16.6 Oropharyngeal cancer tongue base Aspiration pneumonia Hypoalbuminemia Dysphagia Chronic gastritis Oropharyngeal cancer with reoccurrence PLAN: -Continue PEG tube feedings. -Titrate tube feedings per dietitian recommendations -Continue supportive care -Patient receiving potassium supplement Physician [employer] note has been reviewed by physician. Signing provider agrees with the documented findings, assessment, and plan of care. Objective - Vital Signs Vital signs: Vital Signs Temp 97.5 F L 04/11/21 11:52 Pulse 89 04/11/21 14:00 Resp 22 04/11/21 14:00 BP 130/91 04/11/21 11:52 Pulse Ox 93 L 04/11/21 11:52 Intake & Output 04/10/21 04/11/21 04/11/21 18:59 06:59 18:59 Intake Total 10 230 Output Total 950 Balance 10 -720 Weight 59.5 kg Intake: Oral 0 Tube Feeding 10 230 Output: Urine 950 Other: Voiding Method Indwelling Catheter Indwelling Catheter Indwelling Catheter - Labs CBC & Chem 7: 04/11/21 09:29 04/11/21 09:29 Labs: Abnormal Lab Results - Last 24 Hours (Table) 04/10/21 04/11/21 04/11/21 Range/Units 23:18 06:09 09:29 WBC 18.5 H (3.8-10.6) k/uL Plt Count 93 L (150-450) k/uL Neutrophils # 17.6 H (1.3-7.7) k/uL Lymphocytes # 0.4 L (1.0-4.8) k/uL Sodium (137-145) mmol/L Potassium (3.5-5.1) mmol/L Chloride (98-107) mmol/L BUN (9-20) mg/dL Glucose (74-99) mg/dL POC Glucose (mg/dL) 137 H 134 H (75-99) mg/dL Total Protein (6.3-8.2) g/dL Albumin (3.5-5.0) g/dL 04/11/21 04/11/21 Range/Units 09:29 11:59 WBC (3.8-10.6) k/uL Plt Count (150-450) k/uL Neutrophils # (1.3-7.7) k/uL Lymphocytes # (1.0-4.8) k/uL Sodium 149 H (137-145) mmol/L Potassium 2.5 L* (3.5-5.1) mmol/L Chloride 119 H (98-107) mmol/L BUN 76 H (9-20) mg/dL Glucose 157 H (74-99) mg/dL POC Glucose (mg/dL) 137 H (75-99) mg/dL Total Protein 4.8 L (6.3-8.2) g/dL Albumin 2.1 L (3.5-5.0) g/dL Microbiology - Last 24 Hours (Table) 04/06/21 15:00 Blood Culture - Preliminary Blood No Growth after 96 hours <Marcie Musa - Last Filed: 04/12/21 11:38> Subjective As above. Continue to feeds as he has severe protein malnutrition. Oncology following without any immediate metastatic workup at this time. Otherwise no signs of bleeding from gastrostomy tube placement. Objective - Vital Signs Vital signs: Vital Signs Temp 97.2 F L 04/12/21 08:00 Pulse 92 04/12/21 08:00 Resp 18 04/12/21 08:00 BP 106/54 04/12/21 08:00 Pulse Ox 93 L 04/12/21 08:00 Intake & Output 04/11/21 04/12/21 04/12/21 18:59 06:59 18:59 Intake Total 210 1840 Output Total 3150 Balance 210 -1310 Weight 63.5 kg 63.5 kg Intake: Intake, IV Titration 1350 Amount Clindamycin 600 mg In 100 Dextrose 5% in Water 50 ml @ 50 mls/hr IVPB Q8H [facility] Rx#:[id number] Dextrose 5% in Water 1, 600 000 ml @ 75 mls/hr IV . [id number] [facility] Rx#:[id number] Potassium Chloride 10 meq 600 In Water For Injection 1 100ml.bag @ 100 mls/hr IVPB Q1HR [facility] Rx#: [id number] cefTRIAXone 2 gm In 50 Sodium Chloride 0.9% 50 ml @ 100 mls/hr IVPB Q24HR [facility] Rx#:[id number] Oral 0 Tube Feeding 210 490 Output: Urine 3150 Other: Voiding Method Indwelling Catheter Indwelling Catheter Indwelling Catheter - Labs CBC & Chem 7: 04/12/21 09:13 04/12/21 09:13 Labs: Abnormal Lab Results - Last 24 Hours (Table) 04/11/21 04/11/21 04/11/21 Range/Units 09:29 11:59 18:06 WBC (3.8-10.6) k/uL Plt Count 93 L (150-450) k/uL Neutrophils # 17.6 H (1.3-7.7) k/uL Lymphocytes # 0.4 L (1.0-4.8) k/uL Sodium (137-145) mmol/L Potassium (3.5-5.1) mmol/L Chloride (98-107) mmol/L BUN (9-20) mg/dL Glucose (74-99) mg/dL POC Glucose (mg/dL) 137 H 165 H (75-99) mg/dL Total Protein (6.3-8.2) g/dL Albumin (3.5-5.0) g/dL 04/11/21 04/12/21 04/12/21 Range/Units 23:08 01:32 06:14 WBC (3.8-10.6) k/uL Plt Count (150-450) k/uL Neutrophils # (1.3-7.7) k/uL Lymphocytes # (1.0-4.8) k/uL Sodium (137-145) mmol/L Potassium 3.0 L (3.5-5.1) mmol/L Chloride (98-107) mmol/L BUN (9-20) mg/dL Glucose (74-99) mg/dL POC Glucose (mg/dL) 138 H 154 H (75-99) mg/dL Total Protein (6.3-8.2) g/dL Albumin (3.5-5.0) g/dL 04/12/21 04/12/21 Range/Units 09:13 09:13 WBC 16.0 H (3.8-10.6) k/uL Plt Count 72 L (150-450) k/uL Neutrophils # 14.7 H (1.3-7.7) k/uL Lymphocytes # 0.4 L (1.0-4.8) k/uL Sodium 147 H (137-145) mmol/L Potassium 2.7 L* (3.5-5.1) mmol/L Chloride 116 H (98-107) mmol/L BUN 68 H (9-20) mg/dL Glucose 163 H (74-99) mg/dL POC Glucose (mg/dL) (75-99) mg/dL Total Protein 4.7 L (6.3-8.2) g/dL Albumin 2.0 L (3.5-5.0) g/dL Microbiology - Last 24 Hours (Table) 04/06/21 15:00 Blood Culture - Preliminary Blood No Growth after 120 hours Assessment and Plan (1) Oropharyngeal cancer Current Visit: Yes Status: Acute Code(s): C10.9 - MALIGNANT NEOPLASM OF OROPHARYNX, UNSPECIFIED SNOMED Code(s): 370419979 (2) Pneumonia Current Visit: Yes Status: Acute Code(s): J18.9 - PNEUMONIA, UNSPECIFIED ORGANISM SNOMED Code(s): 361260028 (3) Sepsis Current Visit: Yes Status: Acute Code(s): A41.9 - SEPSIS, UNSPECIFIED ORGANISM SNOMED Code(s): 17165303 (4) Poor intravenous access Current Visit: Yes Status: Acute Code(s): Z78.9 - OTHER SPECIFIED HEALTH STATUS SNOMED Code(s): 107350865 (5) Failure to thrive in adult Current Visit: Yes Status: Acute Code(s): R62.7 - ADULT FAILURE TO THRIVE SNOMED Code(s): 976052589 (6) Dysphagia Current Visit: Yes Status: Acute Code(s): R13.10 - DYSPHAGIA, UNSPECIFIED SNOMED Code(s): 58148915 (7) Radiation therapy complication Current Visit: Yes Status: Acute Code(s): T66.XXXA - RADIATION SICKNESS, UNSPECIFIED, INITIAL ENCOUNTER SNOMED Code(s): 646914118 (8) Lactic acidosis Current Visit: Yes Status: Acute Code(s): E87.2 - ACIDOSIS SNOMED Code(s): 11550879
[2021-04-11] MEDS ORDERED: Potassium Replacement Protocol 1 EACH MISC MISCELLANE PRN (16:41)
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
[2021-04-11 18:25] LABS: Glucose,Whole Blood 165 mg/dL (75-99)
--- NOTE | 2021-04-11 18:25 | PN ---
PROGRESS NOTE DATE OF SERVICE: 04/11/2021 REASON FOR FOLLOWUP: Aspiration pneumonia. INTERVAL HISTORY: Patient is afebrile. The patient remains to be lethargic, though breathing comfortably. No respiratory distress has been noticed. No vomiting or any diarrhea reported by the nursing staff. PHYSICAL EXAMINATION: Blood pressure 127/87, pulse of 89, temperature 97.7, he is 94% on continued high-flow oxygen. General description is an elderly male lying in bed in no distress. Respiratory system: Unlabored breathing with decreased intensity of breath sounds. No wheeze. Heart S1, S2. Regular rate and rhythm. Abdomen soft, no tenderness. LABS: Hemoglobin is 14.9, white count 19.5, creatinine 1.16. Blood culture has been negative. Sputum not collected. DIAGNOSTIC IMPRESSION AND PLAN: Patient admitted to the hospital with pneumonia likely aspiration etiology, covered with Rocephin and clindamycin. White count still elevated. The patient did have unstageable pressure ulcer with a necrotic area. Could be responsible for elevated white count and may benefit from surgical debridement. Discussed with surgical team. Continue supportive care. MMODL / IJN: [id number] /
[2021-04-11 23:12] LABS: Glucose,Whole Blood 138 mg/dL (75-99)
[2021-04-12] MEDS: POTASSIUM CHLORIDE 10 MEQ in WATER FOR INJECTION 1 100ML.BAG IVPB SCH ×4 (03:15→06:26)
[2021-04-12] MEDS: PANTOPRAZOLE 40 MG TABLET PO SCH (05:45)
[2021-04-12 06:16] LABS: Glucose,Whole Blood 154 mg/dL (75-99)
[2021-04-12] MEDS: INSULIN ASPART (NovoLOG) 100 UNIT/ML VIAL SQ SCH ×4 (06:25→23:56)
[2021-04-12] MEDS: LEVOTHYROXINE 100 MCG TAB PO SCH (06:26)
[2021-04-12] MEDS: ATORVASTATIN 10 MG TAB PO SCH (08:37)
[2021-04-12] MEDS: LOSARTAN-HCTZ 50-12.5 MG 1 EACH TAB PO SCH (08:37)
[2021-04-12] MEDS: ENOXAPARIN 40 MG/0.4 ML SYRINGE SQ SCH (08:37)
[2021-04-12] MEDS: HYDROmorphone 0.5 MG/0.5 ML SYRINGE IVP PRN (08:54)
[2021-04-12] MEDS: CLINDAMYCIN 600 MG in DEXTROSE 5% IN WATER 50 ML IVPB SCH ×6 (08:54→23:48)
[2021-04-12 09:33] LABS: Basophils % (A) 0 %; Eosinophils # (A) 0.1 k/uL (0-0.7); Eosinophils % (A) 0 %; HCT 41.4 % (39.0-53.0); Lymphocytes # (A) 0.4 k/uL (1.0-4.8); Lymphocytes % (A) 2 %; MCH 31.7 pg (25.0-35.0); MCHC 33.7 g/dL (31.0-37.0); MCV 93.9 fL (80.0-100.0); Mean Platelet Volume 13.5; Monocytes # (A) 0.9 k/uL (0-1.0); Monocytes % (A) 5 %; Neutrophils # (A) 14.7 k/uL (1.3-7.7); Neutrophils % (A) 92 %; RBC 4.41 m/uL (4.30-5.90); RDW 13.5 % (11.5-15.5)
[2021-04-12 09:36] LABS: Platelet Count 72 k/uL (150-450)
[2021-04-12 10:21] LABS: Calcium 8.6 mg/dL (8.4-10.2); Total Bilirubin 0.2 mg/dL (0.2-1.3); Total Protein 4.7 g/dL (6.3-8.2)
--- NOTE | 2021-04-12 10:26 | P.CONS ---
History of Present Illness - Reason for Consult Consult date: 04/12/21 wound care - History of Present Illness This is a 70-year-old patient being seen on for nonhealing ulceration to the sacrum. Patient has a stage III pressure ulcer to the sacrum with significant amount of ecchymosis noted to the area. Minimal to no granulation seen within the wound bed. Ulceration measures approximate 4 x 3 depth unknown. Significant amount of eschar and slough noted within the wound bed. Patient's past medical history significant for hypertension, every day smoker, hypothyroidism, history of throat cancer surgery 1 year ago, and history of severe thoracic aortic aneurysm. Patient is nonverbal he nods his has answering questions by yes or no. Patient appears emaciated. Review of systems: Unable to obtain due to patient's responsiveness Physical exam: General Appearance: Alert, cooperative, no distress, appears stated age. Skin: See HPI all other Skin color, texture, tugor normal, no rashes or lesions. Neurologic: Alert oriented x3 Assessment: 1. Stage III pressure ulcer of sacrum Plan: 1. Apply honey gel, dry gauze, border foam, change Friday. Turn patient every 2 hours. Patient would benefit from a surgical debridement and possible wound VAC placement post debridement. Patient would benefit from continued outpatient wound care. We'll be happy to see him in the wound care center upon discharge. Thank you for the consultation any questions please contact the wound care center DNP note has been reviewed and discussed with Dr. Hardin and the impression and plan of care has been directed as dictated. Past Medical History Past Medical History: Hypertension Additional Past Medical History / Comment(s): Throat cancer History of Any Multi-Drug Resistant Organisms: None Reported Past Surgical History: Orthopedic Surgery Past Anesthesia/Blood Transfusion Reactions: No Reported Reaction Smoking Status: Current every day smoker Medications and Allergies Home Medications Medication Instructions Recorded Confirmed Type Ibuprofen [Motrin] 800 mg PO Q8H PRN 04/06/21 04/06/21 History Levothyroxine Sodium [Synthroid] 100 mcg PO DAILY 04/06/21 04/06/21 History Losartan-Hctz 50-12.5 mg [Hyzaar 1 tab PO DAILY 04/06/21 04/06/21 History 50-12.5] Simvastatin [Zocor] 20 mg PO DAILY 04/06/21 04/06/21 History Allergies Allergy/AdvReac Type Severity Reaction Status Date / Time codeine Allergy Unknown Verified 04/06/21 12:43 Penicillins Allergy Unknown Verified 04/06/21 12:43 Physical Exam Vitals: Vital Signs Temp Pulse Resp BP Pulse Ox 04/12/21 08:00 97.2 F L 92 18 106/54 93 L 04/12/21 03:55 97 F L 84 19 108/69 94 L 04/12/21 00:00 96.8 F L 94 20 133/88 94 L 04/11/21 20:00 97.6 F 79 22 119/77 97 04/11/21 16:00 97.7 F 89 20 127/87 94 L 04/11/21 14:00 89 22 04/11/21 11:52 97.5 F L 89 22 130/91 93 L Intake and Output 04/11/21 04/12/21 04/12/21 22:59 06:59 14:59 Intake Total 1630 210 Output Total 1700 1450 Balance -70 -1240 Intake: Intake, IV Titration 1350 Amount Clindamycin 600 mg In 100 Dextrose 5% in Water 50 ml @ 50 mls/hr IVPB Q8H [facility] Rx#:[id number] Dextrose 5% in Water 1, 600 000 ml @ 75 mls/hr IV . [id number] [facility] Rx#:[id number] Potassium Chloride 10 meq 600 In Water For Injection 1 100ml.bag @ 100 mls/hr IVPB Q1HR [facility] Rx#: [id number] cefTRIAXone 2 gm In 50 Sodium Chloride 0.9% 50 ml @ 100 mls/hr IVPB Q24HR [facility] Rx#:[id number] Oral 0 0 Tube Feeding 280 210 Output: Urine 1700 1450 Other: Voiding Method Indwelling Catheter Indwelling Catheter Weight 63.5 kg Results CBC & Chem 7: 04/12/21 09:13 04/12/21 01:32 Labs: Abnormal Lab Results - Last 24 Hours (Table) 04/11/21 04/11/21 04/11/21 Range/Units 09:29 09:29 11:59 WBC 18.5 H (3.8-10.6) k/uL Plt Count 93 L (150-450) k/uL Neutrophils # 17.6 H (1.3-7.7) k/uL Lymphocytes # 0.4 L (1.0-4.8) k/uL Sodium 149 H (137-145) mmol/L Potassium 2.5 L* (3.5-5.1) mmol/L Chloride 119 H (98-107) mmol/L BUN 76 H (9-20) mg/dL Glucose 157 H (74-99) mg/dL POC Glucose (mg/dL) 137 H (75-99) mg/dL Total Protein 4.8 L (6.3-8.2) g/dL Albumin 2.1 L (3.5-5.0) g/dL 04/11/21 04/11/21 04/12/21 Range/Units 18:06 23:08 01:32 WBC (3.8-10.6) k/uL Plt Count (150-450) k/uL Neutrophils # (1.3-7.7) k/uL Lymphocytes # (1.0-4.8) k/uL Sodium (137-145) mmol/L Potassium 3.0 L (3.5-5.1) mmol/L Chloride (98-107) mmol/L BUN (9-20) mg/dL Glucose (74-99) mg/dL POC Glucose (mg/dL) 165 H 138 H (75-99) mg/dL Total Protein (6.3-8.2) g/dL Albumin (3.5-5.0) g/dL 04/12/21 04/12/21 Range/Units 06:14 09:13 WBC 16.0 H (3.8-10.6) k/uL Plt Count 72 L (150-450) k/uL Neutrophils # 14.7 H (1.3-7.7) k/uL Lymphocytes # 0.4 L (1.0-4.8) k/uL Sodium (137-145) mmol/L Potassium (3.5-5.1) mmol/L Chloride (98-107) mmol/L BUN (9-20) mg/dL Glucose (74-99) mg/dL POC Glucose (mg/dL) 154 H (75-99) mg/dL Total Protein (6.3-8.2) g/dL Albumin (3.5-5.0) g/dL Microbiology - Last 24 Hours (Table) 09/03/21 15:00 Blood Culture - Preliminary Blood No Growth after 120 hours Assessment and Plan (1) Pressure ulcer of sacral region, stage 3 Current Visit: Yes Status: Acute Code(s): L89.153 - PRESSURE ULCER OF SACRAL REGION, STAGE 3 SNOMED Code(s): 090358740 (2) BMI less than 19,adult Current Visit: Yes Status: Acute Code(s): Z68.1 - BODY MASS INDEX [BMI] 19.9 OR LESS, ADULT SNOMED Code(s): 627406965
[2021-04-12 10:32] LABS: Potassium 2.7 mmol/L (3.5-5.1)
[2021-04-12 11:41] LABS: Glucose,Whole Blood 147 mg/dL (75-99)
--- NOTE | 2021-04-12 11:42 | P.PN ---
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 He is status post placement of gastrostomy tube. Family friend at bedside reports patient did not file his advanced directive. Overall, patient is in guarded condition. REVIEW OF ORGAN SYSTEMS: No new chest pain. No fevers or chills. No productive sputum. PHYSICAL EXAM: VITALS: Reviewed CONSTITUTIONAL: Well developed and in no acute distress. Cachetic. EYES: Conjuctivae without sclera icterus. Extraocular movements grossly intact. HEAD, EARS, NOSE, THROAT: Dry buccal mucosa. Head is atraumatic, normocephalic. Hears conversational speech. No nasal drainage. RESPIRATORY: Non-labored respirations and equal bilateral excursions. No gross wheezes. CARDIOVASCULAR: 2+ radial pulses. ABDOMEN: Scaphoid. No peritonitis. Gastrostomy tube intact. MUSCULOSKELETAL: No clubbing or cyanosis. SKIN: Warm and well perfused with good skin turgor. Dry skin NEUROLOGIC: Cranial nerves II through XII grossly intact. PSYCH: Non-verbal CLINCAL LABS: Reviewed. WBC with persistent leukocytosis, over 16,000. Potassium low 2.7. ASSESSMENT: 1. Tongue-based cancer with recurrence 2. Underweight BMI 15.3 3. Lung consolidation. 4. Aspiration with dysphagia 5. Anemia 6. Severe protein malnutrition PLAN: 1. Oncology records reviewed including suggestions of no additional metastatic workup at that time due to his acute comorbidities. 2. Recommend aggressive nutritional correction. Patient is at risk for refeeding syndrome with multiple electrolyte dyscrasias. 3. At this time, port placement not requested. He may obtain adequate nutrition including hydration through his gastrostomy tube. 4. General surgery will sign off. Please consult if needed. Objective - Vital Signs Vital signs: Vital Signs Temp 97.2 F L 04/12/21 08:00 Pulse 92 04/12/21 08:00 Resp 18 04/12/21 08:00 BP 106/54 04/12/21 08:00 Pulse Ox 93 L 04/12/21 08:00 Intake & Output 04/11/21 04/12/21 04/12/21 18:59 06:59 18:59 Intake Total 210 1840 Output Total 3150 Balance 210 -1310 Weight 63.5 kg 63.5 kg Intake: Intake, IV Titration 1350 Amount Clindamycin 600 mg In 100 Dextrose 5% in Water 50 ml @ 50 mls/hr IVPB Q8H [facility] Rx#:[id number] Dextrose 5% in Water 1, 600 000 ml @ 75 mls/hr IV . [id number] [facility] Rx#:[id number] Potassium Chloride 10 meq 600 In Water For Injection 1 100ml.bag @ 100 mls/hr IVPB Q1HR [facility] Rx#: [id number] cefTRIAXone 2 gm In 50 Sodium Chloride 0.9% 50 ml @ 100 mls/hr IVPB Q24HR [facility] Rx#:[id number] Oral 0 Tube Feeding 210 490 Output: Urine 3150 Other: Voiding Method Indwelling Catheter Indwelling Catheter Indwelling Catheter - Labs CBC & Chem 7: 04/12/21 09:13 04/12/21 09:13 Labs: Abnormal Lab Results - Last 24 Hours (Table) 04/11/21 04/11/21 04/11/21 Range/Units 09:29 11:59 18:06 WBC (3.8-10.6) k/uL Plt Count 93 L (150-450) k/uL Neutrophils # 17.6 H (1.3-7.7) k/uL Lymphocytes # 0.4 L (1.0-4.8) k/uL Sodium (137-145) mmol/L Potassium (3.5-5.1) mmol/L Chloride (98-107) mmol/L BUN (9-20) mg/dL Glucose (74-99) mg/dL POC Glucose (mg/dL) 137 H 165 H (75-99) mg/dL Total Protein (6.3-8.2) g/dL Albumin (3.5-5.0) g/dL 04/11/21 04/12/21 04/12/21 Range/Units 23:08 01:32 06:14 WBC (3.8-10.6) k/uL Plt Count (150-450) k/uL Neutrophils # (1.3-7.7) k/uL Lymphocytes # (1.0-4.8) k/uL Sodium (137-145) mmol/L Potassium 3.0 L (3.5-5.1) mmol/L Chloride (98-107) mmol/L BUN (9-20) mg/dL Glucose (74-99) mg/dL POC Glucose (mg/dL) 138 H 154 H (75-99) mg/dL Total Protein (6.3-8.2) g/dL Albumin (3.5-5.0) g/dL 04/12/21 04/12/21 Range/Units 09:13 09:13 WBC 16.0 H (3.8-10.6) k/uL Plt Count 72 L (150-450) k/uL Neutrophils # 14.7 H (1.3-7.7) k/uL Lymphocytes # 0.4 L (1.0-4.8) k/uL Sodium 147 H (137-145) mmol/L Potassium 2.7 L* (3.5-5.1) mmol/L Chloride 116 H (98-107) mmol/L BUN 68 H (9-20) mg/dL Glucose 163 H (74-99) mg/dL POC Glucose (mg/dL) (75-99) mg/dL Total Protein 4.7 L (6.3-8.2) g/dL Albumin 2.0 L (3.5-5.0) g/dL Microbiology - Last 24 Hours (Table) 04/06/21 15:00 Blood Culture - Preliminary Blood No Growth after 120 hours Assessment and Plan (1) Oropharyngeal cancer Current Visit: Yes Status: Acute Code(s): C10.9 - MALIGNANT NEOPLASM OF OROPHARYNX, UNSPECIFIED SNOMED Code(s): 331830166 (2) Pneumonia Current Visit: Yes Status: Acute Code(s): J18.9 - PNEUMONIA, UNSPECIFIED ORGANISM SNOMED Code(s): 523758610 (3) Sepsis Current Visit: Yes Status: Acute Code(s): A41.9 - SEPSIS, UNSPECIFIED ORGANISM SNOMED Code(s): 88991078 (4) Poor intravenous access Current Visit: Yes Status: Acute Code(s): Z78.9 - OTHER SPECIFIED HEALTH STATUS SNOMED Code(s): 873825127 (5) Failure to thrive in adult Current Visit: Yes Status: Acute Code(s): R62.7 - ADULT FAILURE TO THRIVE SNOMED Code(s): 874163955 (6) Dysphagia Current Visit: Yes Status: Acute Code(s): R13.10 - DYSPHAGIA, UNSPECIFIED SNOMED Code(s): 95881464 (7) Radiation therapy complication Current Visit: Yes Status: Acute Code(s): T66.XXXA - RADIATION SICKNESS, UNSPECIFIED, INITIAL ENCOUNTER SNOMED Code(s): 190032673 (8) Lactic acidosis Current Visit: Yes Status: Acute Code(s): E87.2 - ACIDOSIS SNOMED Code(s): 15877154
[2021-04-12] MEDS: MAGNESIUM SULFATE-D5W PMX 1 GM in DEXTROSE/WATER 1 100ML.BAG IVPB SCH ×2 (12:12→16:53)
[2021-04-12] MEDS: POTASSIUM BICARBONATE/CIT AC 20 MEQ TABLET.EFF NG-TUBE SCH ×3 (12:16→18:07)
--- NOTE | 2021-04-12 16:50 | PN ---
PROGRESS NOTE DATE OF SERVICE: 04/12/2021 REASON FOR FOLLOWUP: Aspiration pneumonia. INTERVAL HISTORY: Patient is afebrile. The patient remains to be lethargic. Unable to provide any history. No vomiting or diarrhea has been reported by nursing staff or any other changes. PHYSICAL EXAMINATION: Blood pressure 99/60 with a pulse of 80. Temperature 98.3. He is 92% on 3 L high-flow oxygen. General description is an elderly male lying in bed in no distress. Respiratory system: Unlabored breathing, decreased intensity in breath sounds. No wheeze. Heart S1, S2. Regular rate and rhythm. Abdomen soft, no tenderness. LABS: BUN of 58, creatinine 1.04. DIAGNOSTIC IMPRESSION AND PLAN: Patient with a component of aspiration pneumonia covered with Rocephin and clindamycin. White count is trending down prognosis remains to be guarded. Continue supportive care. MMODL / IJN: [id number] /
[2021-04-12] MEDS: DEXTROSE 5% IN WATER 1,000 ML IV SCH ×2 (16:54→23:48)
[2021-04-12 16:55] LABS: Glucose,Whole Blood 135 mg/dL (75-99)
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
--- NOTE | 2021-04-12 17:31 | P.PN ---
Subjective Progress Note Date: 04/12/21 Principal diagnosis: Acute aspiration pneumonia On 04/10/2021 patient seen in follow-up on selective care unit, he remains on high flow oxygen 15 L high flow nasal cannula with a pulse ox of 92-94%. Has a weak congested cough, his mentation is lethargic, does not verbalize, his been nothing by mouth for aspiration pneumonia, his status post PEG tube insertion yesterday on 04/09/2021, anticipated to start his tube feedings today. Daughter is at the bedside. His last chest x-ray from 04/07/2021 showed bilateral left greater than right airspace and nodular opacities suggesting multifocal pneumonia. Continue antibiotic coverage includes clindamycin, Rocephin was also added, ID service is following, patient is currently employed and on [employer] rate of 150 ML per hour. No acute events overnight. His blood cultures have shown no growth, his labs have been reviewed, and he has persistent and uptrending leukocytosis, his white blood cell count is 18.8, hemoglobin is 14.5, sodium is 147, potassium is 3.4, chloride is 160, B1 is 86, and creatinine 1.3. ProCalcitonin was elevated at 7.68 On today's evaluation on 04/11/2021 patient seen in follow-up on selective care unit. He is still quite lethargic, he mumbles a few words incomprehensibly. He remains on 15 L high flow nasal cannula, and his pulse ox is 93%, lung sounds are actually diminished, with diffuse rhonchi in the right lung. Repeat chest x-ray today has been reviewed showing patchy perihilar and basilar infiltrates with some improvement in aeration at the lung bases. Patient has been afebrile overnight, blood pressure stable, he has very weak nonproductive cough. He is status post PEG tube insertion on oral 04/10/2021, his tube feedings have been initiated, and he is receiving VItal AF at 38 mL's per hour, with standard water flushes at 30 mL every 4 hours, his IV 0.9 normal saline is running at a rate of 150 ML per hour, his labs have been reviewed, patient still has elevated white blood count of 18.5, hemoglobin is 14.9, his serum sodium continues to trend up, and is up to 149 on today's labs, potassium is 2.5, chloride is 119, and creatinine is 1.16 which is an improvement value compared yesterday. Catheter is in place, and patient is producing adequate amount of urine. Patient remains on clindamycin for antibiotic coverage. On 04/12/2021 patient seen in follow-up on selective care unit, he is very lethargic on today's exam, his is at the bedside, she states patient had some abdominal tenderness with palpation earlier today, and he was given some IV Dilaudid and after that he became very lethargic. He started to wake up some now according to the . he remains on high flow oxygen at 15 L. His pulse ox is 93%, his vital signs have been stable, his been afebrile, his cough is very weak, productive, he is nothing by mouth he has received a PEG tube and tube feedings have been started. Tolerating feedings well so far, he is getting vital 1.2 at 35 ML per hour, with free water flushes of 100 ML every 4 hours, in addition patient is on D5W at a rate of 75 ML per hour, sees labs have been reviewed and his serum sodium is improved and is down to 147 on today's labs. His white count is improving and is down to 16 on today's labs, hemoglobin is 14, potassium was 2.7 and this was replaced per protocol, chloride was 116, BUN is 68, and creatinine is 1.04. Bone function has improved since admission. Objective - Vital Signs Vital signs: Vital Signs Temp 98.4 F 04/12/21 16:58 Pulse 72 04/12/21 16:58 Resp 22 04/12/21 16:58 BP 105/65 04/12/21 16:58 Pulse Ox 93 L 04/12/21 16:58 Intake & Output 04/11/21 04/12/21 04/12/21 18:59 06:59 18:59 Intake Total 210 1840 Output Total 3150 700 Balance 210 -1310 -700 Weight 63.5 kg 63.5 kg Intake: Intake, IV Titration 1350 Amount Clindamycin 600 mg In 100 Dextrose 5% in Water 50 ml @ 50 mls/hr IVPB Q8H [facility] Rx#:[id number] Dextrose 5% in Water 1, 600 000 ml @ 75 mls/hr IV . [id number] [facility] Rx#:[id number] Potassium Chloride 10 meq 600 In Water For Injection 1 100ml.bag @ 100 mls/hr IVPB Q1HR [facility] Rx#: [id number] 2 gm In 50 Sodium Chloride 0.9% 50 ml @ 100 mls/hr IVPB Q24HR [facility] [place] Rx#:[id number] Oral 0 Tube Feeding 210 490 Output: Urine 3150 700 Other: Voiding Method Indwelling Catheter Indwelling Catheter Indwelling Catheter - Exam GENERAL EXAM: Lethargic, cachectic-looking 70-year-old white male, resting in bed, on 15 L of oxygen with a pulse ox of 93%, comfortable in no apparent distress. HEAD: Normocephalic/atraumatic. EYES: Normal reaction of pupils, equal size. Conjunctiva pink, sclera white. NOSE: Clear with pink turbinates. THROAT: No erythema or exudates. NECK: No masses, no JVD, no thyroid enlargement, no adenopathy. CHEST: No chest wall deformity. Symmetrical expansion. LUNGS: Equal air entry with diffuse rhonchi and wheezes CVS: Regular rate and rhythm, normal S1 and S2, no gallops, no murmurs, no rubs ABDOMEN: Soft, nontender. No hepatosplenomegaly, normal bowel sounds, no guarding or rigidity. EXTREMITIES: No clubbing, no edema, no cyanosis, 2+ pulses and upper and lower extremities. MUSCULOSKELETAL: Muscle strength and tone normal. Significant wasting of muscle mass evident on physical exam SPINE: No scoliosis or deformity SKIN: No rashes CENTRAL NERVOUS SYSTEM: Lethargic, confused,. No focal deficits, tone is normal in all 4 extremities. - Labs CBC & Chem 7: 04/12/21 09:13 04/12/21 09:13 Labs: Abnormal Lab Results - Last 24 Hours (Table) 04/11/21 04/11/21 04/12/21 Range/Units 18:06 23:08 01:32 WBC (3.8-10.6) k/uL Plt Count (150-450) k/uL Neutrophils # (1.3-7.7) k/uL Lymphocytes # (1.0-4.8) k/uL Sodium (137-145) mmol/L Potassium 3.0 L (3.5-5.1) mmol/L Chloride (98-107) mmol/L BUN (9-20) mg/dL Glucose (74-99) mg/dL POC Glucose (mg/dL) 165 H 138 H (75-99) mg/dL Total Protein (6.3-8.2) g/dL Albumin (3.5-5.0) g/dL 04/12/21 04/12/21 04/12/21 Range/Units 06:14 09:13 09:13 WBC 16.0 H (3.8-10.6) k/uL Plt Count 72 L (150-450) k/uL Neutrophils # 14.7 H (1.3-7.7) k/uL Lymphocytes # 0.4 L (1.0-4.8) k/uL Sodium 147 H (137-145) mmol/L Potassium 2.7 L* (3.5-5.1) mmol/L Chloride 116 H (98-107) mmol/L BUN 68 H (9-20) mg/dL Glucose 163 H (74-99) mg/dL POC Glucose (mg/dL) 154 H (75-99) mg/dL Total Protein 4.7 L (6.3-8.2) g/dL Albumin 2.0 L (3.5-5.0) g/dL 04/12/21 04/12/21 Range/Units 11:39 16:52 WBC (3.8-10.6) k/uL Plt Count (150-450) k/uL Neutrophils # (1.3-7.7) k/uL Lymphocytes # (1.0-4.8) k/uL Sodium (137-145) mmol/L Potassium (3.5-5.1) mmol/L Chloride (98-107) mmol/L BUN (9-20) mg/dL Glucose (74-99) mg/dL POC Glucose (mg/dL) 147 H 135 H (75-99) mg/dL Total Protein (6.3-8.2) g/dL Albumin (3.5-5.0) g/dL Microbiology - Last 24 Hours (Table) 04/06/21 15:00 Blood Culture - Preliminary Blood No Growth after 120 hours Assessment and Plan Plan: Assessment: #1. Acute multifocal bilateral aspiration pneumonia and possibility of anaerobic abscess #2. Acute hypoxic respiratory failure secondary to the above #3. Profound malnutrition, with severe anorexia/cachexia syndrome #4. Chronic dysphagia, currently nothing by mouth, status post PEG tube placement on 04/09/2021 #5. History of throat cancer, status post radiation and chemotherapy #6. Severe xerostomia #7. History of hypertension #8. History of hyperlipidemia #9. History of hypothyroidism Plan: Maintain aspiration precautions Head of the bed up 30 at all times Continue same antibiotics White count is improving No fever Still requiring high flow oxygen Continue D5W at 75 ML per hour Continue free water flushes with 100 ML of water every 4 hours via the PEG tube Follow-up labs including CBC and BMP tomorrow We discussed CODE STATUS with patient's Patient's prognosis is quite guarded and poor There is possibility of worsening hypoxia and further respiratory failure requiring the need for intubation and mechanical ventilation The patient's made it very clear that intubation and placement on mechanical ventilation and her life-saving measures are not what the patient or the family wants in case of further deterioration of his status They would like to continue with supportive treatment, short of her measures or life support We'll continue with current medical treatment, continue supportive treatment I performed a history & physical examination of the patient and discussed their management with my nurse practitioner, Haydee Rondon. I reviewed the nurse practitioner's note and agree with the documented findings and plan of care. Lung sounds are positive for diminished breath sounds, with rhonchi throughout the lung [place]. The findings and the impression was discussed with the patient. I attest to the documentation by the nurse practitioner. Time with Patient: Less than 30
[2021-04-12 23:50] LABS: Glucose,Whole Blood 127 mg/dL (75-99)
[2021-04-13 00:56] LABS: Magnesium 2.1 mg/dL (1.6-2.3); Potassium 2.8 mmol/L (3.5-5.1)
[2021-04-13] MEDS: POTASSIUM BICARBONATE/CIT AC 20 MEQ TABLET.EFF NG-TUBE SCH ×5 (01:28→11:10)
[2021-04-13] MEDS: PANTOPRAZOLE 40 MG TABLET PO SCH (04:00)
[2021-04-13 06:05] LABS: Glucose,Whole Blood 125 mg/dL (75-99)
[2021-04-13] MEDS: INSULIN ASPART (NovoLOG) 100 UNIT/ML VIAL SQ SCH ×3 (06:06→18:23)
[2021-04-13] MEDS: LEVOTHYROXINE 100 MCG TAB PO SCH (06:16)
[2021-04-13 08:19] LABS: Basophils % (A) 0 %; Eosinophils % (A) 0 %; HGB 14.1 gm/dL (13.0-17.5); Lymphocytes # (A) 0.4 k/uL (1.0-4.8); Lymphocytes % (A) 2 %; MCH 31.9 pg (25.0-35.0); MCHC 33.4 g/dL (31.0-37.0); MCV 95.4 fL (80.0-100.0); Mean Platelet Volume 14.3; Monocytes # (A) 0.4 k/uL (0-1.0); Monocytes % (A) 2 %; Neutrophils # (A) 17.5 k/uL (1.3-7.7); Neutrophils % (A) 95 %; RDW 13.5 % (11.5-15.5); WBC 18.3 k/uL (3.8-10.6)
[2021-04-13 08:32] LABS: African American GFR (CKD) >90 (>60 ml/min/1.73 sqM); Anion Gap 7 mmol/L; Blood Urea Nitrogen 63 mg/dL (9-20); Calcium 8.4 mg/dL (8.4-10.2); Carbon Dioxide 28 mmol/L (22-30); Chloride 112 mmol/L (98-107); Glucose 133 mg/dL (74-99); Non-African American GFR(CKD) >90 (>60 ml/min/1.73 sqM); Potassium 3.1 mmol/L (3.5-5.1); Sodium 147 mmol/L (137-145)
[2021-04-13 08:40] LABS: Platelet Count 60 k/uL (150-450)
[2021-04-13] MEDS: CLINDAMYCIN 600 MG in DEXTROSE 5% IN WATER 50 ML IVPB SCH ×4 (08:56→15:16)
[2021-04-13] MEDS: ATORVASTATIN 10 MG TAB PO SCH (08:57)
[2021-04-13] MEDS: LOSARTAN-HCTZ 50-12.5 MG 1 EACH TAB PO SCH (08:57)
[2021-04-13] MEDS: ENOXAPARIN 40 MG/0.4 ML SYRINGE SQ SCH (08:57)
[2021-04-13 11:49] LABS: Glucose,Whole Blood 141 mg/dL (75-99)
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
[2021-04-13] MEDS: DEXTROSE 5% IN WATER 1,000 ML IV SCH (15:50)
--- NOTE | 2021-04-13 16:41 | P.PN ---
Subjective Progress Note Date: 04/13/21 Principal diagnosis: Acute multifocal aspiration pneumonia On 04/10/2021 patient seen in follow-up on selective care unit, he remains on high flow oxygen 15 L high flow nasal cannula with a pulse ox of 92-94%. Has a weak congested cough, his mentation is lethargic, does not verbalize, his been nothing by mouth for aspiration pneumonia, his status post PEG tube insertion yesterday on 04/09/2021, anticipated to start his tube feedings today. Daughter is at the bedside. His last chest x-ray from 04/07/2021 showed bilateral left greater than right airspace and nodular opacities suggesting multifocal pneumonia. Continue antibiotic coverage includes clindamycin, Rocephin was also added, ID service is following, patient is currently employed and on [employer] rate of 150 ML per hour. No acute events overnight. His blood cultures have shown no growth, his labs have been reviewed, and he has persistent and uptrending leukocytosis, his white blood cell count is 18.8, hemoglobin is 14.5, sodium is 147, potassium is 3.4, chloride is 160, B1 is 86, and creatinine 1.3. ProCalcitonin was elevated at 7.68 On today's evaluation on 04/11/2021 patient seen in follow-up on selective care unit. He is still quite lethargic, he mumbles a few words incomprehensibly. He remains on 15 L high flow nasal cannula, and his pulse ox is 93%, lung sounds are actually diminished, with diffuse rhonchi in the right lung. Repeat chest x-ray today has been reviewed showing patchy perihilar and basilar infiltrates with some improvement in aeration at the lung bases. Patient has been afebrile overnight, blood pressure stable, he has very weak nonproductive cough. He is status post PEG tube insertion on oral 04/10/2021, his tube feedings have been initiated, and he is receiving VItal AF at 38 mL's per hour, with standard water flushes at 30 mL every 4 hours, his IV 0.9 normal saline is running at a rate of 150 ML per hour, his labs have been reviewed, patient still has elevated white blood count of 18.5, hemoglobin is 14.9, his serum sodium continues to trend up, and is up to 149 on today's labs, potassium is 2.5, chloride is 119, and creatinine is 1.16 which is an improvement value compared yesterday. Catheter is in place, and patient is producing adequate amount of urine. Patient remains on clindamycin for antibiotic coverage. On 04/12/2021 patient seen in follow-up on selective care unit, he is very lethargic on today's exam, his is at the bedside, she states patient had some abdominal tenderness with palpation earlier today, and he was given some IV Dilaudid and after that he became very lethargic. He started to wake up some now according to the . he remains on high flow oxygen at 15 L. His pulse ox is 93%, his vital signs have been stable, his been afebrile, his cough is very weak, productive, he is nothing by mouth he has received a PEG tube and tube feedings have been started. Tolerating feedings well so far, he is getting vital 1.2 at 35 ML per hour, with free water flushes of 100 ML every 4 hours, in addition patient is on D5W at a rate of 75 ML per hour, sees labs have been reviewed and his serum sodium is improved and is down to 147 on today's labs. His white count is improving and is down to 16 on today's labs, hemoglobin is 14, potassium was 2.7 and this was replaced per protocol, chloride was 116, BUN is 68, and creatinine is 1.04. Bone function has improved since admission. Patient was reevaluated today on 04/13/2021, patient is basically about the same. Patient is not verbal, is extremely frail, lethargic, is at bedside. Remains on broad-spectrum antibiotics for presumptive aspiration pneumonia. Patient looks extremely cachectic, but not in any distress. Remains on 15 L high flow nasal cannula, and his O2 saturations 98%. Continues to have leukocytosis with WBC count of 18.3 hemoglobin 14.1 electrolytes are normal except for sodium elevated and potassium low at 3.1. Objective - Vital Signs Vital signs: Vital Signs Temp 98.1 F 04/13/21 16:00 Pulse 64 04/13/21 16:00 Resp 18 04/13/21 16:00 BP 118/76 04/13/21 16:00 Pulse Ox 98 04/13/21 16:00 Intake & Output 09/04/2404/13/21 04/13/21 18:59 06:59 18:59 Intake Total 105 560 Output Total 700 1400 500 Balance -595 -840 -500 Weight 63.5 kg Intake: Oral 0 Tube Feeding 105 560 Output: Urine 700 1400 500 Other: Voiding Method Indwelling Catheter Indwelling Catheter Indwelling Catheter - Exam GENERAL EXAM: Lethargic, cachectic-looking 70-year-old white male, resting in bed, on 15 L of oxygen with a pulse ox of 93%, comfortable in no apparent distress. HEENT: [place], [place], anicteric, no neck masses, no JVD. CHEST: No chest wall deformity. Symmetrical expansion. LUNGS: Few rhonchi noted bilaterally and crackles at the bases. CVS: Regular rate and rhythm, normal S1 and S2, no gallops, no murmurs, no rubs ABDOMEN: Soft, nontender. No hepatosplenomegaly, normal bowel sounds, no guarding or rigidity. EXTREMITIES: No clubbing, no edema, no cyanosis, 2+ pulses and upper and lower extremities. MUSCULOSKELETAL: Muscle strength and tone normal. Significant wasting of muscle mass evident on physical exam SKIN: No rashes CENTRAL NERVOUS SYSTEM: Lethargic, confused,. No focal deficits, tone is normal in all 4 extremities. - Labs CBC & Chem 7: 04/13/21 07:15 04/13/21 07:15 Labs: Abnormal Lab Results - Last 24 Hours (Table) 04/12/21 04/12/21 04/13/21 Range/Units 16:52 23:49 00:12 WBC (3.8-10.6) k/uL Plt Count (150-450) k/uL Neutrophils # (1.3-7.7) k/uL Lymphocytes # (1.0-4.8) k/uL Sodium (137-145) mmol/L Potassium 2.8 L (3.5-5.1) mmol/L Chloride (98-107) mmol/L BUN (9-20) mg/dL Glucose (74-99) mg/dL POC Glucose (mg/dL) 135 H 127 H (75-99) mg/dL 04/13/21 04/13/21 04/13/21 Range/Units 06:03 07:15 07:15 WBC 18.3 H (3.8-10.6) k/uL Plt Count 60 L (150-450) k/uL Neutrophils # 17.5 H (1.3-7.7) k/uL Lymphocytes # 0.4 L (1.0-4.8) k/uL Sodium 147 H (137-145) mmol/L Potassium 3.1 L (3.5-5.1) mmol/L Chloride 112 H (98-107) mmol/L BUN 63 H (9-20) mg/dL Glucose 133 H (74-99) mg/dL POC Glucose (mg/dL) 125 H (75-99) mg/dL 04/13/21 Range/Units 11:48 WBC (3.8-10.6) k/uL Plt Count (150-450) k/uL Neutrophils # (1.3-7.7) k/uL Lymphocytes # (1.0-4.8) k/uL Sodium (137-145) mmol/L Potassium (3.5-5.1) mmol/L Chloride (98-107) mmol/L BUN (9-20) mg/dL Glucose (74-99) mg/dL POC Glucose (mg/dL) 141 H (75-99) mg/dL Microbiology - Last 24 Hours (Table) 04/06/21 15:00 Blood Culture - Final Blood No Growth after 144 hours Assessment and Plan Assessment: Impression: Acute bilateral aspiration pneumonia Acute hypoxic respiratory failure secondary to above Profound malnutrition, protein calorie many nutrition/severe. Patient has severe cachexia and anorexia. Chronic dysphagia and history of PEG tube placement on 04/09/2021. History of throat cancer and status post radiation and chemo History of depression Dyslipidemia History of hypothyroidism Recommendation: Continue aspiration precautions Continue antibiotics Continue enteral feeding via PEG tube Continue IV fluids however changed to D5W at 1 25 mL per hour. DO NOT RESUSCITATE CODE STATUS, discussed with the . Overall long-term prognosis remains poor and guarded, May have to eventually consider hospice on this patient Time with Patient: Less than 30
[2021-04-13 17:18] LABS: Glucose,Whole Blood 114 mg/dL (75-99)
--- NOTE | 2021-04-13 18:37 | P.PN ---
Subjective Progress Note Date: 04/13/21 The patient was very lethargic, mostly nonverbal. He appeared to be comfortable on oxygen Objective - Vital Signs Vital signs: Vital Signs Temp 98.1 F 04/13/21 16:00 Pulse 64 04/13/21 16:00 Resp 18 04/13/21 16:00 BP 118/76 04/13/21 16:00 Pulse Ox 98 04/13/21 16:00 Intake & Output 04/12/21 04/13/21 04/13/21 18:59 06:59 18:59 Intake Total 105 560 Output Total 700 1400 900 Balance -291 -840 -900 Weight 63.5 kg Intake: Oral 0 Tube Feeding 105 560 Output: Urine 700 1400 900 Other: Voiding Method Indwelling Catheter Indwelling Catheter Indwelling Catheter - Constitutional General appearance: Present: no acute distress - EENT Eyes: Present: EOMI ENT: Present: hearing grossly normal - Respiratory Respiratory: bilateral: rales - Cardiovascular Rhythm: regular Heart sounds: normal: S1, S2 - Gastrointestinal General gastrointestinal: Present: normal bowel sounds, soft - Integumentary Integumentary: Present: normal - Neurologic Neurologic: Present: CNII-XII intact - Musculoskeletal Musculoskeletal: Present: generalized weakness - Psychiatric Psychiatric Comment(s): Lethargic, mostly nonverbal, difficult to assess orientation - Labs CBC & Chem 7: 04/13/21 07:15 04/13/21 07:15 Labs: Abnormal Lab Results - Last 24 Hours (Table) 04/12/21 04/13/21 04/13/21 Range/Units 23:49 00:12 06:03 WBC (3.8-10.6) k/uL Plt Count (150-450) k/uL Neutrophils # (1.3-7.7) k/uL Lymphocytes # (1.0-4.8) k/uL Sodium (137-145) mmol/L Potassium 2.8 L (3.5-5.1) mmol/L Chloride (98-107) mmol/L BUN (9-20) mg/dL Glucose (74-99) mg/dL POC Glucose (mg/dL) 127 H 125 H (75-99) mg/dL 04/13/21 04/13/21 04/13/21 Range/Units 07:15 07:15 11:48 WBC 18.3 H (3.8-10.6) k/uL Plt Count 60 L (150-450) k/uL Neutrophils # 17.5 H (1.3-7.7) k/uL Lymphocytes # 0.4 L (1.0-4.8) k/uL Sodium 147 H (137-145) mmol/L Potassium 3.1 L (3.5-5.1) mmol/L Chloride 112 H (98-107) mmol/L BUN 63 H (9-20) mg/dL Glucose 133 H (74-99) mg/dL POC Glucose (mg/dL) 141 H (75-99) mg/dL 04/13/21 Range/Units 17:14 WBC (3.8-10.6) k/uL Plt Count (150-450) k/uL Neutrophils # (1.3-7.7) k/uL Lymphocytes # (1.0-4.8) k/uL Sodium (137-145) mmol/L Potassium (3.5-5.1) mmol/L Chloride (98-107) mmol/L BUN (9-20) mg/dL Glucose (74-99) mg/dL POC Glucose (mg/dL) 114 H (75-99) mg/dL Microbiology - Last 24 Hours (Table) 04/06/21 15:00 Blood Culture - Final Blood No Growth after 144 hours Assessment and Plan (1) Aspiration pneumonia Narrative/Plan: The patient has significant bilateral lung infiltrates, which at this time appear to be more likely due to pneumonia. It appears that the patient has been having chronic aspiration which is the likely cause. Defer to the admitting service and pulmonary medicine for ongoing treatment. - Case was discussed in detail with the family member who was at the bedside. She was informed that the patient will need reevaluation for metastatic disease in the lung. However there would be no way to accurately assess that unless pneumonia is cleared up sufficiently. In addition there would be no benefit for doing metastatic workup at this time, as the patient is too weak for any kind of treatment for malignancy. - She was in agreement with the same. The plan would be to assess the patient in about 4-6 weeks after discharge, and then restage assuming that has been satisfactory resolution of the pneumonia. Current Visit: Yes Status: Acute Code(s): J69.0 - PNEUMONITIS DUE TO INHALATION OF FOOD AND VOMIT SNOMED Code(s): 273382179 (2) Oropharyngeal cancer Narrative/Plan: at the time of his last visit in the office, the patient had been asked to follow-up with ENT for biopsy of the suspicious area at the tongue base. However he did not do so. Given ongoing aspiration is certainly concern for local recurrence also. It was again discussed with the family that there would be no benefit in evaluating him for the same and this point, as he is in no condition for any active treatment for malignancy. He will need reassessment fo r the same also if and when he is able to recover from his acute situation. In that case he can be referred back to ENT as an outpatient Current Visit: Yes Status: Acute Code(s): C10.9 - MALIGNANT NEOPLASM OF OROPHARYNX, UNSPECIFIED SNOMED Code(s): 974527030 Plan: the patient is status post PEG tube placement. Probable ECF placement on discharge is being planned. Reassess in the office in 4-6 weeks as noted
[2021-04-14 00:01] LABS: Glucose,Whole Blood 154 mg/dL (75-99)
[2021-04-14] MEDS: INSULIN ASPART (NovoLOG) 100 UNIT/ML VIAL SQ SCH ×4 (00:22→17:21)
[2021-04-14] MEDS: CLINDAMYCIN 600 MG in DEXTROSE 5% IN WATER 50 ML IVPB SCH ×8 (00:22→23:19)
[2021-04-14 05:58] LABS: Glucose,Whole Blood 138 mg/dL (75-99)
[2021-04-14] MEDS: POTASSIUM BICARBONATE/CIT AC 20 MEQ TABLET.EFF PO SCH (06:48)
[2021-04-14] MEDS: LEVOTHYROXINE 100 MCG TAB PO SCH (06:48)
[2021-04-14] MEDS: PANTOPRAZOLE 40 MG TABLET PO SCH (06:48)
[2021-04-14] MEDS: DEXTROSE 5% IN WATER 1,000 ML IV SCH ×2 (07:19→12:57)
[2021-04-14] MEDS: LOSARTAN-HCTZ 50-12.5 MG 1 EACH TAB PO SCH (08:39)
[2021-04-14] MEDS: ENOXAPARIN 40 MG/0.4 ML SYRINGE SQ SCH (08:39)
[2021-04-14] MEDS: ATORVASTATIN 10 MG TAB PO SCH (08:39)
--- NOTE | 2021-04-14 09:40 | XR ---
EXAMINATION TYPE: XR chest 1V portable DATE OF EXAM: 04/14/2021 CLINICAL HISTORY: Difficulty breathing progress study. TECHNIQUE: Single AP portable frontal view of the chest is obtained. COMPARISON: Chest x-ray from 3 days earlier FINDINGS: Osseous structures redemonstrated demineralized. Cardiac silhouette size is stable and wit hin normal limits with atherosclerotic thoracic aorta. Chronic peripheral changes with bilateral lowe r lung opacities. Increased right-sided pleural effusion noted. IMPRESSION: Chronic changes with persistent bilateral mid to lower lung acute infiltrate and/or atele ctasis. New small right pleural effusion noted.
--- NOTE | 2021-04-14 11:51 | P.PN ---
Subjective Progress Note Date: 04/14/21 Principal diagnosis: Acute aspiration pneumonia On 04/10/2021 patient seen in follow-up on selective care unit, he remains on high flow oxygen 15 L high flow nasal cannula with a pulse ox of 92-94%. Has a weak congested cough, his mentation is lethargic, does not verbalize, his been nothing by mouth for aspiration pneumonia, his status post PEG tube insertion yesterday on 04/09/2021, anticipated to start his tube feedings today. Daughter is at the bedside. His last chest x-ray from 04/07/2021 showed bilateral left greater than right airspace and nodular opacities suggesting multifocal pneumonia. Continue antibiotic coverage includes clindamycin, Rocephin was also added, ID service is following, patient is currently employed and on [employer] rate of 150 ML per hour. No acute events overnight. His blood cultures have shown no growth, his labs have been reviewed, and he has persistent and uptrending leukocytosis, his white blood cell count is 18.8, hemoglobin is 14.5, sodium is 147, potassium is 3.4, chloride is 160, B1 is 86, and creatinine 1.3. ProCalcitonin was elevated at 7.68 On today's evaluation on 04/11/2021 patient seen in follow-up on selective care unit. He is still quite lethargic, he mumbles a few words incomprehensibly. He remains on 15 L high flow nasal cannula, and his pulse ox is 93%, lung sounds are actually diminished, with diffuse rhonchi in the right lung. Repeat chest x-ray today has been reviewed showing patchy perihilar and basilar infiltrates with some improvement in aeration at the lung bases. Patient has been afebrile overnight, blood pressure stable, he has very weak nonproductive cough. He is status post PEG tube insertion on oral 04/10/2021, his tube feedings have been initiated, and he is receiving VItal AF at 38 mL's per hour, with standard water flushes at 30 mL every 4 hours, his IV 0.9 normal saline is running at a rate of 150 ML per hour, his labs have been reviewed, patient still has elevated white blood count of 18.5, hemoglobin is 14.9, his serum sodium continues to trend up, and is up to 149 on today's labs, potassium is 2.5, chloride is 119, and creatinine is 1.16 which is an improvement value compared yesterday. Catheter is in place, and patient is producing adequate amount of urine. Patient remains on clindamycin for antibiotic coverage. On 04/12/2021 patient seen in follow-up on selective care unit, he is very lethargic on today's exam, his is at the bedside, she states patient had some abdominal tenderness with palpation earlier today, and he was given some IV Dilaudid and after that he became very lethargic. He started to wake up some now according to the . he remains on high flow oxygen at 15 L. His pulse ox is 93%, his vital signs have been stable, his been afebrile, his cough is very weak, productive, he is nothing by mouth he has received a PEG tube and tube feedings have been started. Tolerating feedings well so far, he is getting vital 1.2 at 35 ML per hour, with free water flushes of 100 ML every 4 hours, in addition patient is on D5W at a rate of 75 ML per hour, sees labs have been reviewed and his serum sodium is improved and is down to 147 on today's labs. His white count is improving and is down to 16 on today's labs, hemoglobin is 14, potassium was 2.7 and this was replaced per protocol, chloride was 116, BUN is 68, and creatinine is 1.04. Renal function has improved since admission. 04/14/2021 patient seen in follow-up on selective care unit, he is currently resting comfortably in bed, she is very weak, lethargic, he does open eyes to voice, he is very weak to speak. Nursing staff reports last night he had taken a cup of water off the table and he had drank some water out of it. Right away his breathing got worse, it was obvious that he probably aspirated on the water. He needed to be placed on additional oxygen, he was on 15 L already per high flow nasal cannula and NONREBREATHER MASK WAS ADDED TO MAINTAIN HIS O2 SA TURATIONS ABOVE 90%. He is already and antibiotics in the form of clindamycin and Rocephin. Gradually his breathing improved. He is currently just on his 15 L high flow nasal cannula and his pulse ox is 99%. He is on D5W at a rate of 100 ML per hour, today's labs are pending, he is receiving tube feedings in the form of vital AF at a rate of 45 ML per hour with free water flushes 100 ML every 4 hours. Lung Sounds are very diminished his cough is weak and ineffective. No fevers overnight, hemodynamically stable. Does not appear to be in any acute distress right now. Repeat chest x-ray was done showing chronic changes with persistent bilateral mid to lower lung acute infiltrates and/or atelectasis, and there is a new small right pleural effusion. Objective - Vital Signs Vital signs: Vital Signs Temp 98.6 F 04/14/21 07:29 Pulse 79 04/14/21 07:29 Resp 20 04/14/21 07:29 BP 108/70 04/14/21 07:29 Pulse Ox 99 04/14/21 07:46 Intake & Output 04/13/21 04/14/21 04/14/21 18:59 06:59 18:59 Intake Total 140 Output Total 900 900 450 Balance -900 -760 -450 Weight 63.5 kg 65.5 kg Intake: Tube Feeding 140 Output: Urine 900 900 450 Other: Voiding Method Indwelling Catheter Indwelling Catheter Indwelling Catheter - Exam GENERAL EXAM: Lethargic, cachectic-looking 70-year-old white male, resting in bed, on 15 L of oxygen with a pulse ox of 93%, comfortable in no apparent distress. HEAD: Normocephalic/atraumatic. EYES: Normal reaction of pupils, equal size. Conjunctiva pink, sclera white. NOSE: Clear with pink turbinates. THROAT: No erythema or exudates. NECK: No masses, no JVD, no thyroid enlargement, no adenopathy. CHEST: No chest wall deformity. Symmetrical expansion. LUNGS: Equal air entry with diffuse rhonchi and wheezes CVS: Regular rate and rhythm, normal S1 and S2, no gallops, no murmurs, no rubs ABDOMEN: Soft, nontender. No hepatosplenomegaly, normal bowel sounds, no guarding or rigidity. EXTREMITIES: No clubbing, no edema, no cyanosis, 2+ pulses and upper and lower extremities. MUSCULOSKELETAL: Muscle strength and tone normal. Significant wasting of muscle mass evident on physical exam SPINE: No scoliosis or deformity SKIN: No rashes CENTRAL NERVOUS SYSTEM: Lethargic, confused,. No focal deficits, tone is normal in all 4 extremities. - Labs CBC & Chem 7: 04/13/21 07:15 04/13/21 18:00 Labs: Abnormal Lab Results - Last 24 Hours (Table) 04/13/21 04/13/21 04/13/21 Range/Units 11:48 17:14 18:00 Potassium 3.0 L (3.5-5.1) mmol/L POC Glucose (mg/dL) 141 H 114 H (75-99) mg/dL 04/13/21 04/14/21 Range/Units 23:59 05:53 Potassium (3.5-5.1) mmol/L POC Glucose (mg/dL) 154 H 138 H (75-99) mg/dL Assessment and Plan Plan: Assessment: #1. Acute multifocal bilateral aspiration pneumonia and possibility of anaerobic abscess #2. Acute hypoxic respiratory failure secondary to the above #3. Profound malnutrition, with severe anorexia/cachexia syndrome #4. Chronic dysphagia, currently nothing by mouth, status post PEG tube pl acement on 04/09/2021 #5. History of throat cancer, status post radiation and chemotherapy #6. Severe xerostomia #7. History of hypertension #8. History of hyperlipidemia #9. History of hypothyroidism Plan: Maintain aspiration precautions, keep the patient strict nothing by mouth Head of the bed up 30 at all times Continue same antibiotics Titrate FiO2 to keep O2 sats at or above 80-90% Continue D5W at 75 ML per hour Continue free water flushes with 100 ML of water every 4 hours via the PEG tube Follow-up labs including CBC and BMP are pending for today We discussed CODE STATUS with patient's Patient's prognosis is quite guarded and poor In view of his multiple comorbidities poor functional status we recommend palliative care consultation, hospice We'll continue with current medical treatment, continue supportive treatment I performed a history & physical examination of the patient and discussed their management with my nurse practitioner, Haydee Rondon. I reviewed the nurse practitioner's note and agree with the documented findings and plan of care. Lung sounds are positive for diminished breath sounds, with rhonchi throughout the lung [place]. The findings and the impression was discussed with the patient. I attest to the documentation by the nurse practitioner. Time with Patient: Less than 30
[2021-04-14 11:56] LABS: Glucose,Whole Blood 102 mg/dL (75-99)
[2021-04-14] MEDS ORDERED: POTASSIUM BICARBONATE/CIT AC 20 MEQ TABLET.EFF NG-TUBE SCH (16:00)
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
[2021-04-14 17:19] LABS: Glucose,Whole Blood 107 mg/dL (75-99)
[2021-04-14 23:53] LABS: Glucose,Whole Blood 108 mg/dL (75-99)
[2021-04-15 05:52] LABS: Glucose,Whole Blood 121 mg/dL (75-99)
[2021-04-15] MEDS: INSULIN ASPART (NovoLOG) 100 UNIT/ML VIAL SQ SCH ×4 (06:18→23:59)
[2021-04-15] MEDS: PANTOPRAZOLE 40 MG TABLET PO SCH (06:43)
[2021-04-15] MEDS: LEVOTHYROXINE 100 MCG TAB PO SCH (06:44)
--- NOTE | 2021-04-15 07:14 | PN ---
PROGRESS NOTE DATE OF SERVICE: 04/14/2021 REASON FOR FOLLOWUP: Aspiration pneumonia. INTERVAL HISTORY: Patient is afebrile. The patient remains to be slightly sleepy, lethargic and is unable to provide any history. Tolerating his tube feeds. No vomiting or diarrhea or any other changes reported by the nursing Staff. PHYSICAL EXAMINATION: Blood pressure 123/81 with a pulse of 78, temperature 97.8. He is 95% on 15 L high- flow oxygen. General description is an elderly male lying in bed in no distress. Respiratory system: Unlabored breathing, decreased breath sounds in the base, with no wheeze. Heart S1, S2. Regular rate and rhythm. Abdomen soft, no tenderness. LABS: No new labs have been obtained today. DIAGNOSTIC IMPRESSION AND PLAN: Patient admitted to the hospital with weakness with evidence of pneumonia, possible aspiration etiology. Patient chest x-ray did show some chronic changes consistent with bilateral acute infiltrate. DIAGNOSTIC IMPRESSION AND PLAN: Patient with pneumonia concern for aspiration etiology, status post PEG tube placement on Rocephin and clindamycin in view of his PENICILLIN ALLERGY, transition to a short course of oral on discharge. Overall prognosis remains to be guarded. Continue supportive care. MMODL / IJN: [id number] /
[2021-04-15] MEDS: DEXTROSE 5% IN WATER 1,000 ML IV SCH ×2 (07:30→08:12)
[2021-04-15] MEDS: ATORVASTATIN 10 MG TAB PO SCH (08:11)
[2021-04-15] MEDS: CLINDAMYCIN 600 MG in DEXTROSE 5% IN WATER 50 ML IVPB SCH ×6 (08:11→23:40)
[2021-04-15] MEDS: LOSARTAN-HCTZ 50-12.5 MG 1 EACH TAB PO SCH (08:12)
[2021-04-15] MEDS: ENOXAPARIN 40 MG/0.4 ML SYRINGE SQ SCH (08:12)
[2021-04-15 10:37] LABS: ALT 56 U/L (4-49); AST 74 U/L (17-59); African American GFR (CKD) >90 (>60 ml/min/1.73 sqM); Albumin 1.9 g/dL (3.5-5.0); Alkaline Phosphatase 81 U/L (38-126); Anion Gap 3 mmol/L; Blood Urea Nitrogen 43 mg/dL (9-20); Calcium 8.3 mg/dL (8.4-10.2); Carbon Dioxide 33 mmol/L (22-30); Chloride 100 mmol/L (98-107); Glucose 146 mg/dL (74-99); Non-African American GFR(CKD) >90 (>60 ml/min/1.73 sqM); Sodium 136 mmol/L (137-145); Total Bilirubin 0.4 mg/dL (0.2-1.3); Total Protein 4.6 g/dL (6.3-8.2)
[2021-04-15 10:42] LABS: Potassium 2.7 mmol/L (3.5-5.1)
[2021-04-15 10:45] LABS: Basophils % (A) 0 %; Eosinophils # (A) 0.2 k/uL (0-0.7); Eosinophils % (A) 1 %; HCT 34.6 % (39.0-53.0); HGB 11.8 gm/dL (13.0-17.5); Lymphocytes # (A) 0.6 k/uL (1.0-4.8); Lymphocytes % (A) 3 %; MCH 31.7 pg (25.0-35.0); MCHC 34.2 g/dL (31.0-37.0); MCV 92.7 fL (80.0-100.0); Mean Platelet Volume 13.7; Monocytes # (A) 0.4 k/uL (0-1.0); Monocytes % (A) 2 %; Neutrophils # (A) 16.5 k/uL (1.3-7.7); Neutrophils % (A) 93 %; RBC 3.73 m/uL (4.30-5.90); RDW 13.9 % (11.5-15.5); WBC 17.7 k/uL (3.8-10.6)
[2021-04-15 10:55] LABS: Platelet Count 89 k/uL (150-450)
[2021-04-15] MEDS ORDERED: Potassium Replacement Protocol 1 EACH MISC MISCELLANE PRN (11:41)
[2021-04-15 11:51] LABS: Glucose,Whole Blood 130 mg/dL (75-99)
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
[2021-04-15] MEDS: POTASSIUM BICARBONATE/CIT AC 20 MEQ TABLET.EFF NG-TUBE SCH ×3 (13:27→15:13)
--- NOTE | 2021-04-15 13:39 | P.PN ---
Subjective Progress Note Date: 04/15/21 Principal diagnosis: Acute aspiration pneumonia On 04/10/2021 patient seen in follow-up on selective care unit, he remains on high flow oxygen 15 L high flow nasal cannula with a pulse ox of 92-94%. Has a weak congested cough, his mentation is lethargic, does not verbalize, his been nothing by mouth for aspiration pneumonia, his status post PEG tube insertion yesterday on 04/09/2021, anticipated to start his tube feedings today. Daughter is at the bedside. His last chest x-ray from 04/07/2021 showed bilateral left greater than right airspace and nodular opacities suggesting multifocal pneumonia. Continue antibiotic coverage includes clindamycin, Rocephin was also added, ID service is following, patient is currently employed and on [employer] rate of 150 ML per hour. No acute events overnight. His blood cultures have shown no growth, his labs have been reviewed, and he has persistent and uptrending leukocytosis, his white blood cell count is 18.8, hemoglobin is 14.5, sodium is 147, potassium is 3.4, chloride is 160, B1 is 86, and creatinine 1.3. ProCalcitonin was elevated at 7.68 On today's evaluation on 04/11/2021 patient seen in follow-up on selective care unit. He is still quite lethargic, he mumbles a few words incomprehensibly. He remains on 15 L high flow nasal cannula, and his pulse ox is 93%, lung sounds are actually diminished, with diffuse rhonchi in the right lung. Repeat chest x-ray today has been reviewed showing patchy perihilar and basilar infiltrates with some improvement in aeration at the lung bases. Patient has been afebrile overnight, blood pressure stable, he has very weak nonproductive cough. He is status post PEG tube insertion on oral 04/10/2021, his tube feedings have been initiated, and he is receiving VItal AF at 38 mL's per hour, with standard water flushes at 30 mL every 4 hours, his IV 0.9 normal saline is running at a rate of 150 ML per hour, his labs have been reviewed, patient still has elevated white blood count of 18.5, hemoglobin is 14.9, his serum sodium continues to trend up, and is up to 149 on today's labs, potassium is 2.5, chloride is 119, and creatinine is 1.16 which is an improvement value compared yesterday. Catheter is in place, and patient is producing adequate amount of urine. Patient remains on clindamycin for antibiotic coverage. On 04/12/2021 patient seen in follow-up on selective care unit, he is very lethargic on today's exam, his is at the bedside, she states patient had some abdominal tenderness with palpation earlier today, and he was given some IV Dilaudid and after that he became very lethargic. He started to wake up some now according to the . he remains on high flow oxygen at 15 L. His pulse ox is 93%, his vital signs have been stable, his been afebrile, his cough is very weak, productive, he is nothing by mouth he has received a PEG tube and tube feedings have been started. Tolerating feedings well so far, he is getting vital 1.2 at 35 ML per hour, with free water flushes of 100 ML every 4 hours, in addition patient is on D5W at a rate of 75 ML per hour, sees labs have been reviewed and his serum sodium is improved and is down to 147 on today's labs. His white count is improving and is down to 16 on today's labs, hemoglobin is 14, potassium was 2.7 and this was replaced per protocol, chloride was 116, BUN is 68, and creatinine is 1.04. Renal function has improved since admission. 04/14/2021 patient seen in follow-up on selective care unit, he is currently resting comfortably in bed, she is very weak, lethargic, he does open eyes to voice, he is very weak to speak. Nursing staff reports last night he had taken a cup of water off the table and he had drank some water out of it. Right away his breathing got worse, it was obvious that he probably aspirated on the water. He needed to be placed on additional oxygen, he was on 15 L already per high flow nasal cannula and NONREBREATHER MASK WAS ADDED TO MAINTAIN HIS O2 SA TURATIONS ABOVE 90%. He is already and antibiotics in the form of clindamycin and Rocephin. Gradually his breathing improved. He is currently just on his 15 L high flow nasal cannula and his pulse ox is 99%. He is on D5W at a rate of 100 ML per hour, today's labs are pending, he is receiving tube feedings in the form of vital AF at a rate of 45 ML per hour with free water flushes 100 ML every 4 hours. Lung Sounds are very diminished his cough is weak and ineffective. No fevers overnight, hemodynamically stable. Does not appear to be in any acute distress right now. Repeat chest x-ray was done showing chronic changes with persistent bilateral mid to lower lung acute infiltrates and/or atelectasis, and there is a new small right pleural effusion. On today's exam on 04/15/2021 patient seen in follow-up on selective care unit, he remains on high flow oxygen, 15 L, his pulse ox is 94-95%, seems to be about more awake today, he's been afebrile overnight, blood pressure is been stable, he is tolerating his tube feedings, he is receiving a vital high protein at 55 ML per hour, with water flushes. He remains on D5W at a rate of 100 ML per hour, he is currently on Rocephin and clindamycin, no new chest x-ray, today's labs have been reviewed, white blood cell, 17.7, hemoglobin is 11.7, potassium is 2.7, his sodium is down to 136, and we can discontinue the D5W and just continue with free water flushes through his PEG tube, his BUN is 43, and creatinine is 0.63. The liver enzymes are elevated, with AST of 74, and ALT of 56. Patient has been experiencing recurrent aspiration, history of nothing by mouth, despite medical treatment he has not made significant improvement in terms of his oxygenation, he is quite debilitated, very cachectic, very weak. Recommendation has been made for palliative care hospice. Patient's guardian has requested hospice consultation and she is supposed to meet with them today. Otherwise no acute events overnight. Objective - Vital Signs Vital signs: Vital Signs Temp 98.6 F 04/15/21 12:00 Pulse 76 04/15/21 12:00 Resp 17 04/15/21 12:00 BP 115/65 04/15/21 12:00 Pulse Ox 95 04/15/21 12:00 Intake & Output 04/14/21 04/15/21 04/15/21 18:59 06:59 18:59 Intake Total 140 140 Output Total 950 800 550 Balance -950 -660 -410 Weight 65.5 kg 69.5 kg Intake: Oral 0 Tube Feeding 140 140 Output: Urine 950 800 550 Other: Voiding Method Indwelling Catheter Indwelling Catheter Indwelling Catheter - Exam GENERAL EXAM: Lethargic, cachectic-looking 70-year-old white male, resting in bed, on 15 L of oxygen with a pulse ox of 93%, comfortable in no apparent distress. HEAD: Normocephalic/atraumatic. EYES: Normal reaction of pupils, equal size. Conjunctiva pink, sclera white. NOSE: Clear with pink turbinates. THROAT: No erythema or exudates. NECK: No masses, no JVD, no thyroid enlargement, no adenopathy. CHEST: No chest wall deformity. Symmetrical expansion. LUNGS: Equal air entry with diffuse rhonchi and wheezes CVS: Regular rate and rhythm, normal S1 and S2, no gallops, no murmurs, no rubs ABDOMEN: Soft, nontender. No hepatosplenomegaly, normal bowel sounds, no guarding or rigidity. EXTREMITIES: No clubbing, no edema, no cyanosis, 2+ pulses and upper and lower extremities. MUSCULOSKELETAL: Muscle strength and tone normal. Significant wasting of muscle mass evident on physical exam SPINE: No scoliosis or deformity SKIN: No rashes CENTRAL NERVOUS SYSTEM: Lethargic, confused,. No focal deficits, tone is normal in all 4 extremities. - Labs CBC & Chem 7: 04/15/21 09:28 04/15/21 09:28 Labs: Abnormal Lab Results - Last 24 Hours (Table) 04/14/21 04/14/21 04/15/21 Range/Units 17:17 23:50 05:49 WBC (3.8-10.6) k/uL RBC (4.30-5.90) m/uL Hgb (13.0-17.5) gm/dL Hct (39.0-53.0) % Plt Count (150-450) k/uL Neutrophils # (1.3-7.7) k/uL Lymphocytes # (1.0-4.8) k/uL Sodium (137-145) mmol/L Potassium (3.5-5.1) mmol/L Carbon Dioxide (22-30) mmol/L BUN (9-20) mg/dL Creatinine (0.66-1.25) mg/dL Glucose (74-99) mg/dL POC Glucose (mg/dL) 107 H 108 H 121 H (75-99) mg/dL Calcium (8.4-10.2) mg/dL AST (17-59) U/L ALT (4-49) U/L Total Protein (6.3-8.2) g/dL Albumin (3.5-5.0) g/dL 04/15/21 04/15/21 04/15/21 Range/Units 09:28 09:28 11:49 WBC 17.7 H (3.8-10.6) k/uL RBC 3.73 L (4.30-5.90) m/uL Hgb 11.8 L (13.0-17.5) gm/dL Hct 34.6 L (39.0-53.0) % Plt Count 89 L (150-450) k/uL Neutrophils # 16.5 H (1.3-7.7) k/uL Lymphocytes # 0.6 L (1.0-4.8) k/uL Sodium 136 L (137-145) mmol/L Potassium 2.7 L* (3.5-5.1) mmol/L Carbon Dioxide 33 H (22-30) mmol/L BUN 43 H (9-20) mg/dL Creatinine 0.63 L (0.66-1.25) mg/dL Glucose 146 H (74-99) mg/dL POC Glucose (mg/dL) 130 H (75-99) mg/dL Calcium 8.3 L (8.4-10.2) mg/dL AST 74 H (17-59) U/L ALT 56 H (4-49) U/L Total Protein 4.6 L (6.3-8.2) g/dL Albumin 1.9 L (3.5-5.0) g/dL Assessment and Plan Plan: Assessment: #1. Acute multifocal bilateral aspiration pneumonia and possibility of anaerobic abscess #2. Acute hypoxic respiratory failure secondary to the above #3. Profound malnutrition, with severe anorexia/cachexia syndrome #4. Chronic dysphagia, currently nothing by mouth, status post PEG tube placement on 04/09/2021 #5. History of throat cancer, status post radiation and chemotherapy #6. Severe xerostomia #7. History of hypertension #8. History of hyperlipidemia #9. History of hypothyroidism Plan: Continue same antibiotics Titrate FiO2 to keep O2 sats at or above 80-90% Discontinue D5W Continue free water flushes with 100 ML of water every 4 hours via the PEG tube Follow-up labs including CBC and BMP are pending for today Hospice consultation has been placed in the family is meeting with hospice [employer] sales representative according to the nursing staff Otherwise continue supportive medical treatment Prognosis is quite guarded and poor I performed a history & physical examination of the patient and discussed their management with my nurse practitioner, Haydee Rondon. I reviewed the nurse practitioner's note and agree with the documented findings and plan of care. Lung sounds are positive for diminished breath sounds, with rhonchi throughout the lung [place]. The findings and the impression was discussed with the patient. I attest to the documentation by the nurse practitioner. Time with Patient: Less than 30
--- NOTE | 2021-04-15 16:52 | PN ---
PROGRESS NOTE DATE OF SERVICE: 04/15/2021 REASON FOR FOLLOWUP: Aspiration pneumonia. INTERVAL HISTORY: Patient is afebrile. The patient remains to be slightly sleepy, lethargic. However, he was up all morning per the nursing staff. Currently breathing comfortably on room air. Has been tolerating his tube feeds and no diarrhea has been reported. PHYSICAL EXAMINATION: Blood pressure 115/65, pulse of 73, temperature 98.1. He is 93% on room air. General description is an elderly male lying in bed in no distress. Respiratory system: Unlabored breathing, decreased breath sounds at bases. No wheeze. Heart S1, S2. Regular rate and rhythm. Abdomen soft, no tenderness. LABORATORY DATA: Hemoglobin 11.1, white count 8.7, BUN of 43, creatinine 0.63. DIAGNOSTIC IMPRESSION AND PLAN: This patient admitted to the hospital with left-sided pneumonia, possible aspiration etiology, covered with Rocephin and clindamycin. White count is still elevated, though chest x-ray did not show any worsening could be related to his sacral pressure ulcer. Family at the bedside. Their questions were answered. MMODL / IJN: [id number] /
[2021-04-15 17:23] LABS: Glucose,Whole Blood 115 mg/dL (75-99)
[2021-04-15 22:24] LABS: African American GFR (CKD) >90 (>60 ml/min/1.73 sqM); Anion Gap 4 mmol/L; Blood Urea Nitrogen 41 mg/dL (9-20); Calcium 8.4 mg/dL (8.4-10.2); Carbon Dioxide 34 mmol/L (22-30); Chloride 97 mmol/L (98-107); Glucose 116 mg/dL (74-99); Non-African American GFR(CKD) >90 (>60 ml/min/1.73 sqM); Potassium 3.2 mmol/L (3.5-5.1); Sodium 135 mmol/L (137-145)
[2021-04-15 23:55] LABS: Glucose,Whole Blood 133 mg/dL (75-99)
[2021-04-16] MEDS: POTASSIUM BICARBONATE/CIT AC 20 MEQ TABLET.EFF NG-TUBE SCH ×2 (02:24→03:34)
[2021-04-16 05:59] LABS: Glucose,Whole Blood 109 mg/dL (75-99)
[2021-04-16] MEDS: INSULIN ASPART (NovoLOG) 100 UNIT/ML VIAL SQ SCH ×2 (06:14→13:03)
[2021-04-16 06:17] LABS: African American GFR (CKD) >90 (>60 ml/min/1.73 sqM); Anion Gap 2 mmol/L; Blood Urea Nitrogen 39 mg/dL (9-20); Calcium 8.3 mg/dL (8.4-10.2); Carbon Dioxide 35 mmol/L (22-30); Chloride 96 mmol/L (98-107); Glucose 103 mg/dL (74-99); Non-African American GFR(CKD) >90 (>60 ml/min/1.73 sqM); Potassium 3.8 mmol/L (3.5-5.1); Sodium 133 mmol/L (137-145)
[2021-04-16] MEDS: LEVOTHYROXINE 100 MCG TAB PO SCH (06:47)
[2021-04-16] MEDS: PANTOPRAZOLE 40 MG TABLET PO SCH (06:47)
[2021-04-16] MEDS: ATORVASTATIN 10 MG TAB PO SCH (09:44)
[2021-04-16] MEDS: LOSARTAN-HCTZ 50-12.5 MG 1 EACH TAB PO SCH (09:44)
[2021-04-16] MEDS: ENOXAPARIN 40 MG/0.4 ML SYRINGE SQ SCH (09:52)
[2021-04-16] MEDS: CLINDAMYCIN 600 MG in DEXTROSE 5% IN WATER 50 ML IVPB SCH ×2 (10:54)
[2021-04-16 11:40] VITALS: BP 121/67; TEMP 97.6
[2021-04-16 12:06] LABS: Glucose,Whole Blood 122 mg/dL (75-99)
[2021-04-16] MEDS: HYDROmorphone 0.5 MG/0.5 ML SYRINGE IVP PRN (13:29)
[2021-04-16 14:22] VITALS: PULSE 75; RESP 16
[2021-04-16 14:24] VITALS: BMI 17.6
--- NOTE | 2021-04-16 14:35 | P.PN ---
Subjective Progress Note Date: 04/16/21 Principal diagnosis: Acute aspiration pneumonia On 04/10/2021 patient seen in follow-up on selective care unit, he remains on high flow oxygen 15 L high flow nasal cannula with a pulse ox of 92-94%. Has a weak congested cough, his mentation is lethargic, does not verbalize, his been nothing by mouth for aspiration pneumonia, his status post PEG tube insertion yesterday on 04/09/2021, anticipated to start his tube feedings today. Daughter is at the bedside. His last chest x-ray from 04/07/2021 showed bilateral left greater than right airspace and nodular opacities suggesting multifocal pneumonia. Continue antibiotic coverage includes clindamycin, Rocephin was also added, ID service is following, patient is currently employed and on [employer] rate of 150 ML per hour. No acute events overnight. His blood cultures have shown no growth, his labs have been reviewed, and he has persistent and uptrending leukocytosis, his white blood cell count is 18.8, hemoglobin is 14.5, sodium is 147, potassium is 3.4, chloride is 160, B1 is 86, and creatinine 1.3. ProCalcitonin was elevated at 7.68 On today's evaluation on 04/11/2021 patient seen in follow-up on selective care unit. He is still quite lethargic, he mumbles a few words incomprehensibly. He remains on 15 L high flow nasal cannula, and his pulse ox is 93%, lung sounds are actually diminished, with diffuse rhonchi in the right lung. Repeat chest x-ray today has been reviewed showing patchy perihilar and basilar infiltrates with some improvement in aeration at the lung bases. Patient has been afebrile overnight, blood pressure stable, he has very weak nonproductive cough. He is status post PEG tube insertion on oral 04/10/2021, his tube feedings have been initiated, and he is receiving VItal AF at 38 mL's per hour, with standard water flushes at 30 mL every 4 hours, his IV 0.9 normal saline is running at a rate of 150 ML per hour, his labs have been reviewed, patient still has elevated white blood count of 18.5, hemoglobin is 14.9, his serum sodium continues to trend up, and is up to 149 on today's labs, potassium is 2.5, chloride is 119, and creatinine is 1.16 which is an improvement value compared yesterday. Catheter is in place, and patient is producing adequate amount of urine. Patient remains on clindamycin for antibiotic coverage. On 04/12/2021 patient seen in follow-up on selective care unit, he is very lethargic on today's exam, his is at the bedside, she states patient had some abdominal tenderness with palpation earlier today, and he was given some IV Dilaudid and after that he became very lethargic. He started to wake up some now according to the . he remains on high flow oxygen at 15 L. His pulse ox is 93%, his vital signs have been stable, his been afebrile, his cough is very weak, productive, he is nothing by mouth he has received a PEG tube and tube feedings have been started. Tolerating feedings well so far, he is getting vital 1.2 at 35 ML per hour, with free water flushes of 100 ML every 4 hours, in addition patient is on D5W at a rate of 75 ML per hour, sees labs have been reviewed and his serum sodium is improved and is down to 147 on today's labs. His white count is improving and is down to 16 on today's labs, hemoglobin is 14, potassium was 2.7 and this was replaced per protocol, chloride was 116, BUN is 68, and creatinine is 1.04. Renal function has improved since admission. 04/14/2021 patient seen in follow-up on selective care unit, he is currently resting comfortably in bed, she is very weak, lethargic, he does open eyes to voice, he is very weak to speak. Nursing staff reports last night he had taken a cup of water off the table and he had drank some water out of it. Right away his breathing got worse, it was obvious that he probably aspirated on the water. He needed to be placed on additional oxygen, he was on 15 L already per high flow nasal cannula and NONREBREATHER MASK WAS ADDED TO MAINTAIN HIS O2 SA TURATIONS ABOVE 90%. He is already and antibiotics in the form of clindamycin and Rocephin. Gradually his breathing improved. He is currently just on his 15 L high flow nasal cannula and his pulse ox is 99%. He is on D5W at a rate of 100 ML per hour, today's labs are pending, he is receiving tube feedings in the form of vital AF at a rate of 45 ML per hour with free water flushes 100 ML every 4 hours. Lung Sounds are very diminished his cough is weak and ineffective. No fevers overnight, hemodynamically stable. Does not appear to be in any acute distress right now. Repeat chest x-ray was done showing chronic changes with persistent bilateral mid to lower lung acute infiltrates and/or atelectasis, and there is a new small right pleural effusion. On today's exam on 04/15/2021 patient seen in follow-up on selective care unit, he remains on high flow oxygen, 15 L, his pulse ox is 94-95%, seems to be about more awake today, he's been afebrile overnight, blood pressure is been stable, he is tolerating his tube feedings, he is receiving a vital high protein at 55 ML per hour, with water flushes. He remains on D5W at a rate of 100 ML per hour, he is currently on Rocephin and clindamycin, no new chest x-ray, today's labs have been reviewed, white blood cell, 17.7, hemoglobin is 11.7, potassium is 2.7, his sodium is down to 136, and we can discontinue the D5W and just continue with free water flushes through his PEG tube, his BUN is 43, and creatinine is 0.63. The liver enzymes are elevated, with AST of 74, and ALT of 56. Patient has been experiencing recurrent aspiration, history of nothing by mouth, despite medical treatment he has not made significant improvement in terms of his oxygenation, he is quite debilitated, very cachectic, very weak. Recommendation has been made for palliative care hospice. Patient's guardian has requested hospice consultation and she is supposed to meet with them today. Otherwise no acute events overnight. On today's exam on the 04/16/2021 patient seen in follow-up on selective care unit, and he appears to be the same, does not appear to be in any acute distress, he is on 15 L of oxygen his pulse ox is around 99-100%. And we asked the nursing staff to wean down the FiO2 some to keep O2 sat saturation sitter above 90%, he is breathing fairly comfortably, his eyes are open to voice, however he is too weak to verbally respond, afebrile, he is strict nothing by mouth status, he is tolerating his tube feedings, he is on free water flushes with 100 mL of free water every 4 hours, he is on D5W at 100 ML per hour which we asked the nursing staff to discontinue yesterday. Continues on vital high protein at a rate of 55 ML per hour. He is on clindamycin and Rocephin for antibiotic coverage, ID service is following. Blood cultures have shown no growth, yesterday patient's guardian met with the hospice, however there were other family members with have not made up their mind yet. Hospice is supposed to have a follow-up conversation with the patient's family today. Otherwise no acute events overnight. The blood work has been reviewed, BUN is 39, creatinine 0.47 Objective - Vital Signs Vital signs: Vital Signs Temp 97.6 F 04/16/21 08:00 Pulse 75 04/16/21 12:00 Resp 16 04/16/21 12:00 BP 121/67 04/16/21 08:00 Pulse Ox 100 04/16/21 12:29 Intake & Output 04/15/21 04/16/21 04/16/21 18:59 06:59 18:59 Intake Total 140 275 Output Total 1175 1250 250 Balance -1035 -975 -250 Weight 62.5 kg 62.5 kg Intake: Tube Feeding 140 275 Output: Urine 1175 1250 250 Uretheral (Diamond) 250 Other: Voiding Method Indwelling Catheter Indwelling Catheter - Exam GENERAL EXAM: Lethargic, cachectic-looking 70-year-old white male, resting in bed, on 15 L of oxygen with a pulse ox of 99%, comfortable in no apparent distress. HEAD: Normocephalic/atraumatic. EYES: Normal reaction of pupils, equal size. Conjunctiva pink, sclera white. NOSE: Clear with pink turbinates. THROAT: No erythema or exudates. NECK: No masses, no JVD, no thyroid enlargement, no adenopathy. CHEST: No chest wall deformity. Symmetrical expansion. LUNGS: Equal air entry with diffuse rhonchi and wheezes CVS: Regular rate and rhythm, normal S1 and S2, no gallops, no murmurs, no rubs ABDOMEN: Soft, nontender. No hepatosplenomegaly, normal bowel sounds, no guarding or rigidity. EXTREMITIES: No clubbing, no edema, no cyanosis, 2+ pulses and upper and lower extremities. MUSCULOSKELETAL: Muscle strength and tone normal. Significant wasting of muscle mass evident on physical exam SPINE: No scoliosis or deformity SKIN: No rashes CENTRAL NERVOUS SYSTEM: Lethargic, confused,. No focal deficits, tone is normal in all 4 extremities. - Labs CBC & Chem 7: 04/15/21 09:28 04/16/21 05:14 Labs: Abnormal Lab Results - Last 24 Hours (Table) 04/15/21 04/15/21 04/15/21 Range/Units 17:22 21:51 23:53 Sodium 135 L (137-145) mmol/L Potassium 3.2 L (3.5-5.1) mmol/L Chloride 97 L (98-107) mmol/L Carbon Dioxide 34 H (22-30) mmol/L BUN 41 H (9-20) mg/dL Creatinine 0.53 L (0.66-1.25) mg/dL Glucose 116 H (74-99) mg/dL POC Glucose (mg/dL) 115 H 133 H (75-99) mg/dL Calcium (8.4-10.2) mg/dL 04/16/21 04/16/21 04/16/21 Range/Units 05:14 05:58 12:04 Sodium 133 L (137-145) mmol/L Potassium (3.5-5.1) mmol/L Chloride 96 L (98-107) mmol/L Carbon Dioxide 35 H (22-30) mmol/L BUN 39 H (9-20) mg/dL Creatinine 0.47 L (0.66-1.25) mg/dL Glucose 103 H (74-99) mg/dL POC Glucose (mg/dL) 109 H 122 H (75-99) mg/dL Calcium 8.3 L (8.4-10.2) mg/dL Assessment and Plan Plan: Assessment: #1. Acute multifocal bilateral aspiration pneumonia and possibility of anaerobic abscess #2. Acute hypoxic respiratory failure secondary to the above #3. Profound malnutrition, with severe anorexia/cachexia syndrome #4. Chronic dysphagia, currently nothing by mouth, status post PEG tube placement on 04/09/2021 #5. History of throat cancer, status post radiation and chemotherapy #6. Severe xerostomia #7. History of hypertension #8. History of hyperlipidemia #9. History of hypothyroidism Plan: Clinically relatively stable, We'll cut back to FiO2 to 12 L Continue weaning FiO2 to keep O2 saturation is at or above 90% Continue same antibiotics Discontinue D5W Continue free water flushes with 100 ML of water every 4 hours via the PEG tube No new chest x-ray today Hospice supposed to have a follow-up conversation with the family Otherwise once the FiO2 is down to 5 or 6 L may consider for ECF transfer I performed a history & physical examination of the patient and discussed their management with my nurse practitioner, Haydee Rondon. I reviewed the nurse practitioner's note and agree with the documented findings and plan of care. Lung sounds are positive for diminished breath sounds, with rhonchi throughout the lung [place]. The findings and the impression was discussed with the patient. I attest to the documentation by the nurse practitioner. Time with Patient: Less than 30
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
== END 2021-04-16 15:26 | disposition hospice, inpatient (51) | DRG 871 ==
LOC: SUPCPDRO 10:51 → EC 10:51 → 4SSUR 13:16 → 3SCARD 17:27
PROVIDERS: ADMIT Internal Medicine; ATTEND Internal Medicine
PROC: 5A0955A Assistance with Respiratory Ventilation, Greater than 96 Consecutive Hours, High Flow/Velocity Cannula (ICD-10-PCS; 2021-04-06)
PROC: 0DH63UZ Insertion of Feeding Device into Stomach, Percutaneous Approach (ICD-10-PCS; principal; 2021-04-09 13:20)
PROC: 3E0G76Z Introduction of Nutritional Substance into Upper GI, Via Natural or Artificial Opening (ICD-10-PCS; 2021-04-10)
PROC: 05HB33Z Insertion of Infusion Device into Right Basilic Vein, Percutaneous Approach (ICD-10-PCS; 2021-04-12)
DX: A41.9 Sepsis, unspecified organism (principal); R65.21 Severe sepsis with septic shock; J96.01 Acute respiratory failure with hypoxia; J69.0 Pneumonitis due to inhalation of food and vomit; G93.41 Metabolic encephalopathy; L89.153 Pressure ulcer of sacral region, stage 3; E43 Unspecified severe protein-calorie malnutrition; R64 Cachexia; E87.2 Acidosis; Z68.1 Body mass index [BMI] 19.9 or less, adult; C10.9 Malignant neoplasm of oropharynx, unspecified; D69.6 Thrombocytopenia, unspecified; I71.2 Thoracic aortic aneurysm, without rupture; Z20.822 Contact with and (suspected) exposure to COVID-19; R13.10 Dysphagia, unspecified; R62.7 Adult failure to thrive; K29.00 Acute gastritis without bleeding; I10 Essential (primary) hypertension; E78.5 Hyperlipidemia, unspecified; E03.9 Hypothyroidism, unspecified; E87.6 Hypokalemia; I45.9 Conduction disorder, unspecified; I44.7 Left bundle-branch block, unspecified; Z91.19 Patient's noncompliance with other medical treatment and regimen; Z51.5 Encounter for palliative care; Z66 Do not resuscitate; T66.XXXA Radiation sickness, unspecified, initial encounter; K02.9 Dental caries, unspecified; D64.9 Anemia, unspecified; K11.7 Disturbances of salivary secretion; F17.200 Nicotine dependence, unspecified, uncomplicated; R32 Unspecified urinary incontinence; Z79.890 Hormone replacement therapy; Z79.899 Other long term (current) drug therapy; Z92.21 Personal history of antineoplastic chemotherapy; Z92.3 Personal history of irradiation; Z86.59 Personal history of other mental and behavioral disorders; Z87.39 Personal history of other diseases of the musculoskeletal system and connective tissue; Z98.890 Other specified postprocedural states; W22.09XA Striking against other stationary object, initial encounter; Y92.410 Unspecified street and highway as the place of occurrence of the external cause; V89.2XXA Person injured in unspecified motor-vehicle accident, traffic, initial encounter; Z88.5 Allergy status to narcotic agent; Z88.0 Allergy status to penicillin
CPT/HCPCS: 36410; 36415; 43246; 70450; 70490; 71045; 71046; 71250; 72125; 76937; 80048; 80053; 81003; 83605; 83735; 83880; 84132; 84145; 84484; 85025; 85610; 85730; 86140; 87040; 87449; 87635; 93005; 93306; 94760; 99285

== ENCOUNTER 2021-04-16 14:48 | Inpatient (IN) | payer MEDICAID, MEDICARE ==
[2021-04-16] MEDS ORDERED: ACETAMINOPHEN SUPPOSITORY 650 MG SUPP RECTAL PRN (14:51)
[2021-04-16] MEDS ORDERED: ATROPINE OPHTH SOLN 1% 5ML BTL SUBLINGUAL PRN (14:51)
[2021-04-16] MEDS ORDERED: HYDROmorphone (PF) 50 MG in SODIUM CHLORIDE 0.9% 45 ML IV SCH (15:30)
[2021-04-16] MEDS ORDERED: SCOPOLAMINE 1.5MG/72HR PATCH TRANSDERM SCH (16:00)
[2021-04-16] MEDS: LORazepam 2 MG/ML INJ IV SCH ×2 (16:34→20:38)
[2021-04-16] MEDS: GLYCOPYRROLATE 0.2 MG/ML 2 ML VIAL IVP SCH ×2 (16:34→21:30)
[2021-04-16 18:05] LABS: Glucose,Whole Blood 99 mg/dL (75-99)
[2021-04-17 01:30] VITALS: BP 122/79; PULSE 100; RESP 22; TEMP 98.1
== END 2021-04-17 05:09 | disposition expired | DRG 951 ==
LOC: 3SCARD 15:28 → 4SSUR 19:28
PROVIDERS: ADMIT Internal Medicine; ATTEND Internal Medicine
DX: Z51.5 Encounter for palliative care (principal); L89.153 Pressure ulcer of sacral region, stage 3; R65.21 Severe sepsis with septic shock; A41.9 Sepsis, unspecified organism; Z66 Do not resuscitate; I10 Essential (primary) hypertension; E78.5 Hyperlipidemia, unspecified; E03.9 Hypothyroidism, unspecified; B35.1 Tinea unguium; Z98.890 Other specified postprocedural states; Z79.890 Hormone replacement therapy; Z79.899 Other long term (current) drug therapy; Z87.39 Personal history of other diseases of the musculoskeletal system and connective tissue; Z85.818 Personal history of malignant neoplasm of other sites of lip, oral cavity, and pharynx